=== PATIENT | male | born 1940 | race Caucasian/White ===

== ENCOUNTER 2016-09-29 20:09 | Emergency (ER) | payer MEDICARE, OTHER ==
[2016-09-29 20:23] VITALS: RESP 16
--- NOTE | 2016-09-29 21:08 | ED ---
Lower Extremity Injury HPI <Deuce Austin - Last Filed: 09/29/16 22:06> - General Source: patient, RN notes reviewed Mode of arrival: ambulatory Limitations: no limitations <Nafisa Randolph - Last Filed: 09/30/16 10:47> - General Chief Complaint: Extremity Injury, Lower Stated Complaint: [facility] sent/Swollen left leg Time Seen by Provider: 09/29/16 20:30 - History of Present Illness Initial Comments: Patient is a 75-year-old male with chief complaint of left lower calf pain for approximately 2 weeks. Patient reports that over the past day he's noticed increased swelling, heat and redness over the lower calf. Patient reports he's had no history of blood clots. He was sent to the via urgent care to rule out a blood clot. He reports that he has a past medical history of coronary artery disease and had a stent placed 8 years ago. He denies any other symptoms including chest pain or shortness of breath. He reports that he just feels a deep ache over the left calf. He reports it's worse with ambulation. He denies any other associated symptoms. Patient is a nonsmoker and has no history of cancer. Patient reports that over the past few days he has been sitting frequently as he took a sleeping pill to help him relax. (Nafisa Randolph) - Related Data Previous Rx's Medication Instructions Recorded Enoxaparin [Lovenox] 40 mg SQ DAILY #7 syringe 09/29/16 Allergies Allergy/AdvReac Type Severity Reaction Status Date / Time No Known Allergies Allergy Verified 09/29/16 20:23 Review of Systems ROS Other: All systems not noted in ROS Statement are negative. <Deuce Austin - Last Filed: 09/29/16 22:06> ROS Other: All systems not noted in ROS Statement are negative. <Nafisa Randolph - Last Filed: 09/30/16 10:47> ROS Statement: Those systems with pertinent positive or pertinent negative responses have been documented in the HPI. Past Medical History Past Medical History: Coronary Artery Disease (CAD), Diabetes Mellitus, Hyperlipidemia, Hypertension, Myocardial Infarction (CA) History of Any Multi-Drug Resistant Organisms: None Reported Past Surgical History: Heart Catheterization With Stent, Joint Replacement, Orthopedic Surgery Additional Past Surgical History / Comment(s): multiple bilateral knee surgeries Past Psychological History: No Psychological Hx Reported Smoking Status: Former smoker Past Alcohol Use History: None Reported Past Drug Use History: None Reported <Nafisa Randolph - Last Filed: 09/30/16 10:47> General Exam <Deuce Austin - Last Filed: 09/29/16 22:06> Limitations: no limitations General appearance: alert, in no apparent distress Head exam: Present: atraumatic, normocephalic, normal inspection Eye exam: Present: normal appearance, PERRL, EOMI. Absent: scleral icterus, conjunctival injection, periorbital swelling ENT exam: Present: normal exam, normal oropharynx, mucous membranes moist Neck exam: Present: normal inspection. Absent: tenderness, meningismus, lymphadenopathy Respiratory exam: Present: normal lung sounds bilaterally. Absent: respiratory distress, wheezes, rales, rhonchi, stridor Cardiovascular Exam: Present: regular rate, normal rhythm, normal heart sounds. Absent: systolic murmur, diastolic murmur, rubs, gallop, clicks GI/Abdominal exam: Present: soft, normal bowel sounds. Absent: distended, tenderness, guarding, rebound, rigid Extremities exam: Present: normal inspection, full ROM, normal capillary refill. Absent: tenderness, pedal edema, joint swelling, calf tenderness Left Upper Leg exam: Present: normal inspection, full ROM Knee exam: Present: normal inspection, full ROM. Absent: tenderness, swelling, abrasion Lower Leg exam: Present: full ROM, tenderness, swelling, erythema, Homans' sign. Absent: normal inspection, abrasion, laceration, ecchymosis, deformity, crepitus, dislocation Ankle exam: Present: normal inspection, full ROM. Absent: tenderness, swelling , abrasion, laceration, ecchymosis, deformity Foot/Toe exam: Present: normal inspection, full ROM Neurovascular tendon exam: Present: no vascular compromise Back exam: Present: normal inspection, full ROM Neurological exam: Present: alert, oriented X3, CN II-XII intact Psychiatric exam: Present: normal affect, normal mood Skin exam: Present: warm, dry, intact, normal color. Absent: rash <Nafisa Randolph - Last Filed: 09/30/16 10:47> - General Exam Comments Initial Comments: Patient is a pleasant 75-year-old male. He does not appear to be in any acute distress. (Nafisa Randolph) Course <Deuce Austin - Last Filed: 09/29/16 22:06> <Nafisa Randolph - Last Filed: 09/30/16 10:47> Vital Signs 09/29/16 09/29/16 20:19 22:31 Temperature 98.2 F 97.8 F Pulse Rate 59 L 78 Respiratory 16 16 Rate Blood Pressure 134/73 134/78 O2 Sat by Pulse 96 98 Oximetry - Reevaluation(s) Reevaluation #1: 09/29/16 22:06 I did personally do a [id number] examination the patient is left leg was evaluated he does have some mild Discomfort no palpable cords he does also demonstrate evidence of sciatica on the left. Right signs unremarkable. Pulses are equal bilaterally chest wall is nontender to palpation heart rate regular. Patient is a candidate for outpatient treatment and will be treated with Lovenox and I'll request. He is a follow-up with his doctor in 2 days. He was cautioned about returning should he develop any abnormal symptoms such as chest pain shortness of breath or any other questions. (Deuce Austin) Medical Decision Making - Lab Data Result diagrams: 09/29/16 21:24 09/29/16 21:24 <Deuce Austin - Last Filed: 09/29/16 22:06> - Lab Data Result diagrams: 09/29/16 21:24 09/29/16 21:24 - Radiology Data Radiology results: report reviewed <Nafisa Randolph - Last Filed: 09/30/16 10:47> - Medical Decision Making Patient is a 75 year old male with left calf pain for 2 days. Patient is postvie for DVT, discussed with Dr. Austin. Patient placed on lovenox and following up with PCP in 2 days. Patient also given Eliquis card. PAtient given initial lovenox in the [facility]. Patient understands treatment plan and return parameters of chest pain or shortness of breath. Patient understands treatment plan and will comply. Follow up appointment on Saturday. (Nafisa Randolph) - Lab Data Lab Results 09/29/16 09/29/16 09/29/16 Range/Units 21:24 21:24 21:24 WBC 6.0 (3.8-10.6) k/uL RBC 4.33 (4.30-5.90) m/uL Hgb 14.4 (13.0-17.5) gm/dL Hct 43.1 (39.0-53.0) % MCV 99.6 (80.0-100.0) fL MCH 33.3 (25.0-35.0) pg MCHC 33.4 (31.0-37.0) g/dL RDW 12.8 (11.5-15.5) % Plt Count 108 L (150-450) k/uL Neutrophils % 71 % Lymphocytes % 17 % Monocytes % 8 % Eosinophils % 1 % Basophils % 0 % Neutrophils # 4.2 (1.3-7.7) k/uL Lymphocytes # 1.0 (1.0-4.8) k/uL Monocytes # 0.5 (0-1.0) k/uL Eosinophils # 0.1 (0-0.7) k/uL Basophils # 0.0 (0-0.2) k/uL PT 10.1 (9.0-12.0) sec INR 1.0 (<1.1) APTT 24.1 (22.0-30.0) sec Sodium 142 (137-145) mmol/L Potassium 4.4 (3.5-5.1) mmol/L Chloride 102 (98-107) mmol/L Carbon Dioxide 30 (22-30) mmol/L Anion Gap 10 mmol/L BUN 12 (9-20) mg/dL Creatinine 0.90 (0.66-1.25) mg/dL Est GFR (MDRD) Af Amer >60 (>60 ml/min/1.73 sqM) Est GFR (MDRD) Non-Af >60 (>60 ml/min/1.73 sqM) Glucose 154 H (74-99) mg/dL Calcium 9.2 (8.4-10.2) mg/dL - Radiology Data positve for dvt starting at CFV and through entire vein into proximal calf veins. Vein does have small flow in CGV and FV. not compressible from cvy to calf veins. (Nafisa Randolph) Disposition <Deuce Austin - Last Filed: 09/29/16 22:06> Time of Disposition: 22:24 <Nafisa Randolph - Last Filed: 09/30/16 10:47> Clinical Impression: Left leg DVT Disposition: HOME SELF-CARE Condition: Good Instructions: Deep Venous Thrombosis (ED) Additional Instructions: instructed to follow-up with primary care provider on Saturday. Return to the [facility] if any alarming signs or symptoms occur. Prescriptions: Enoxaparin [Lovenox] 40 mg SQ DAILY #7 syringe Referrals: Jarett Oakley DO [Primary Care Provider] - 1-2 days
[2016-09-29 21:35] LABS: Basophils % (A) 0 %; CH 34.4; CHCM 34.7; Eosinophils # (A) 0.1 k/uL (0-0.7); Eosinophils % (A) 1 %; HCT 43.1 % (39.0-53.0); HDW 2.64; HGB 14.4 gm/dL (13.0-17.5); Luc # (Auto) 0.15; Luc % (Auto) 3; Lymphocytes % (A) 17 %; MCH 33.3 pg (25.0-35.0); MCHC 33.4 g/dL (31.0-37.0); MCV 99.6 fL (80.0-100.0); Mean Platelet Volume 7.4; Monocytes # (A) 0.5 k/uL (0-1.0); Monocytes % (A) 8 %; Neutrophils # (A) 4.2 k/uL (1.3-7.7); Neutrophils % (A) 71 %; RBC 4.33 m/uL (4.30-5.90); RDW 12.8 % (11.5-15.5); WBC (Perox) 6.11
[2016-09-29 21:45] LABS: Anion Gap 10 mmol/L; Blood Urea Nitrogen 12 mg/dL (9-20); Calcium 9.2 mg/dL (8.4-10.2); Carbon Dioxide 30 mmol/L (22-30); Chloride 102 mmol/L (98-107); Glucose 154 mg/dL (74-99); Non-African American GFR(MDRD) >60 (>60 ml/min/1.73 sqM); Potassium 4.4 mmol/L (3.5-5.1); Sodium 142 mmol/L (137-145)
[2016-09-29 21:49] LABS: Partial Thromboplastin Time 24.1 sec (22.0-30.0); Prothrombin Time 10.1 sec (9.0-12.0)
[2016-09-29] MEDS ORDERED: ENOXAPARIN 40 MG/0.4 ML SYRINGE SQ STA (22:01)
[2016-09-29 22:32] VITALS: BP 134/78; PULSE 78; TEMP 97.8
--- NOTE | 2016-09-29 22:32 | US ---
EXAMINATION TYPE: US venous doppler duplex LE LT DATE OF EXAM: 09/29/2016 9:07 PM COMPARISON: NONE CLINICAL HISTORY: Pain. SIDE PERFORMED: VESSELS IMAGED: External Iliac Vein (EIV) Common Femoral Vein Deep Femoral Vein Greater Saphenous Vein * Femoral Vein Popliteal Vein Small Saphenous Vein * Proximal Calf Veins (* superficial vessels) TECHNOLOGIST IMPRESSION: Left Leg: POSITIVE for DVT left leg, starting in the CFV and extending through the entire vein into the proximal calf veins. The vein does have a small amount of flow in the CFV, and FV, the vein is no t compressible from the CFV through the proximal calf veins. IMPRESSION: 1. Findings are compatible with acute deep venous thrombosis involving right lower extremity deep vei ns including common femoral superficial femoral and popliteal and calf veins with small focal areas o f blood flow with segmental non thrombotic areas..
== END 2016-09-29 22:31 | disposition home or self-care (01) ==
LOC: EC 20:09
DX: I82.4Z2 Acute embolism and thrombosis of unspecified deep veins of left distal lower extremity (principal); I25.10 Atherosclerotic heart disease of native coronary artery without angina pectoris; Z95.5 Presence of coronary angioplasty implant and graft; Z87.891 Personal history of nicotine dependence
CPT/HCPCS: 36415; 80048; 85025; 85610; 85730; 93971; 99284; 96372; J1650

== ENCOUNTER → 2016-12-28 | Outpatient (CLI) | payer MEDICARE, OTHER ==
--- NOTE | 2016-12-28 13:18 | US ---
EXAMINATION TYPE: US venous doppler duplex LE LT DATE OF EXAM: 12/28/2016 12:59 PM COMPARISON: Previous study dated 09/29/2016. CLINICAL HISTORY: I82.492 DVT. Patient has been on Xarelto for 3 months, assess if he can go off of t hinners. SIDE PERFORMED: Left TECHNIQUE: The lower extremity deep venous system is examined utilizing real time linear array sonog jeancarlos with graded compression, doppler sonography and color-flow sonography. VESSELS IMAGED: External Iliac Vein (EIV) Common Femoral Vein Deep Femoral Vein Greater Saphenous Vein * Femoral Vein Popliteal Vein Small Saphenous Vein * Proximal Calf Veins (* superficial vessels) Left Leg: Thrombus seen with indeterminate age, more so within popiteal vein No popliteal fossa lesion is seen. IMPRESSION: 1. NO ACUTE OCCLUSIVE THROMBUS AT THIS TIME. 2. EVIDENCE OF OLD THROMBUS, LIKELY FROM THE PATIENT'S PREVIOUS DVT IN SEPTEMBER.
== END | disposition home or self-care (01) ==
LOC: RADUSWWP 12:21
PROVIDERS: ATTEND Family Medicine
DX: I82.402 Acute embolism and thrombosis of unspecified deep veins of left lower extremity (principal)

== ENCOUNTER → 2017-05-24 | Outpatient (CLI) | payer MEDICARE, OTHER ==
--- NOTE | 2017-05-24 14:47 | US ---
EXAMINATION TYPE: US venous doppler duplex LE LT DATE OF EXAM: 05/24/2017 2:19 PM COMPARISON: 12/28/2016 CLINICAL HISTORY: I89.492 DVT. On thinners and need to assess known DVT in left leg to stop thinners SIDE PERFORMED: Left TECHNIQUE: The lower extremity deep venous system is examined utilizing real time linear array sonog jeancarlos with graded compression, doppler sonography and color-flow sonography. VESSELS IMAGED: External Iliac Vein (EIV) Common Femoral Vein Deep Femoral Vein Greater Saphenous Vein * Femoral Vein Popliteal Vein Small Saphenous Vein * Proximal Calf Veins (* superficial vessels) Left Leg: Appears to have non occluding chronic thrombus within left popiteal and femoral vein, flow seen, echogenic debris seen within vein that correlates to chronic process Grayscale, color doppler, spectral doppler imaging performed of the deep veins of the lower extremiti es. There is normal flow, compressibility, vascular waveforms. IMPRESSION: Nonoccluding thrombus within the left popliteal and femoral vein, eccentrically located compatible with nonresolved chronic thrombosis.
== END | disposition home or self-care (01) ==
LOC: RADUSWWP 13:52
PROVIDERS: ATTEND Family Medicine
DX: I82.432 Acute embolism and thrombosis of left popliteal vein (principal)

== ENCOUNTER 2017-09-04 06:33 | Inpatient (IN) | payer MEDICARE, OTHER ==
[~2017-09-04 06:33] MED LIST: ALPRAZolam 0.25 MG TAB PO PRN; ALPRAZolam 0.5 MG TAB PO PRN; ASPIRIN 325 MG TAB PO STA; ATORVASTATIN 80 MG TAB PO STA; NITROGLYCERIN SL TABS 0.4 MG TAB SUBLINGUAL PRN; SODIUM CHLORIDE 0.9% 1,000 ML in EMPTY BAG 1 BAG IV ONE
[2017-09-04] MEDS ORDERED: ASPIRIN 81 MG ONE ×2 (07:00→07:02)
[2017-09-04 07:20] LABS: Glucose,Whole Blood 132 mg/dL (75-99)
[2017-09-04] MEDS ORDERED: fentaNYL (PF) 50 MCG/ML 2 ML AMP IV ONE (07:40)
[2017-09-04] MEDS: LIDOCAINE 2% INJ 20 MG/ML SQ ONE ×2 (07:44→07:55)
[2017-09-04] MEDS ORDERED: VERAPAMIL SYRINGE (5 MG/10 ML) INTRAARTER ONE (07:47)
[2017-09-04] MEDS ORDERED: IOHEXOL 350 MG/ML 125ML BOTTLE INJ ONE (08:11)
[2017-09-04] MEDS ORDERED: RX INFO: IV CONTRAST WAS GIVEN 1 EACH MISC MISCELLANE PRN (08:26)
[2017-09-04] MEDS ORDERED: SODIUM CHLORIDE 0.9% 1,000 ML IV SCH (08:30)
[2017-09-04] MEDS ORDERED: METOPROLOL SUCCINATE (ER) 50 MG TAB.ER.24H PO SCH (09:00)
[2017-09-04] MEDS ORDERED: ADENOSINE 3 MG/ML 2 ML VIAL IVP ONE (09:33)
[2017-09-04] MEDS ORDERED: ATROPINE SULFATE 0.1 MG/ML 10ML SYRINGE ONE (10:12)
--- NOTE | 2017-09-04 10:45 | CC ---
CARDIAC CATHETERIZATION REPORT Mr. Caceres is a 76-year-old male with known history of hypertension, hyperlipidemia, diabetes mellitus, history of coronary artery disease, who presented with symptoms of exertional chest discomfort, relieved with rest. In view of that, recommendation made regarding cardiac catheterization, the procedures risks and complication were discussed with the patient who is in full understanding and agreement. PROCEDURE: Patient was brought to [facility] in a fasting semi-sedated state after receiving fentanyl and Benadryl. He was draped and prepped in conventional fashion using Xylocaine anesthesia and Seldinger technique, a 6-Chilean sheath was introduced in the right radial artery. There was difficulty advancing the catheter because of his severe loop in the right subclavian. At that point, using Xylocaine anesthesia and Seldinger technique, a 6-Chilean sheath was introduced in the right femoral artery. Selective right and left angiography performed using 6-Chilean, 4 bend right and left Edilma catheter. Multiple views of the coronary artery including hemiaxial views obtained. Following that, 6-Chilean tight pigtail catheter was introduced in the left ventricle and a 30 degree BRODERICK view of the left ventricle was obtained. Following that, the catheter and sheath were removed. Hemostasis was obtained with deployment of a TR band on the right radial artery. The left femoral artery was sutured in place to be removed at a later time. Of note, the patient received 5000 units of intravenous heparin as well as intra-arterial verapamil. FINDINGS: 1. FLUOROSCOPY: There was severe calcification involving the left main and the proximal LAD. 2. LEFT MAIN: This is a large-sized vessel bifurcating into left circumflex, left anterior descending artery. Left main coronary artery distally at the bifurcation has a severely calcified lesion with area of stenosis up to 60% to 70%. The rest of the proximal vessel has no high-grade stenosis. 3. LEFT ANTERIOR DESCENDING ARTERY: This is a large-sized vessel reaching toward the apex with a wraparound apex segment. It appears there is a segment in the mid area. The LAD gives rise to a moderately-sized diagonal branch at the takeoff of the diagonal branch. There is an 80% plaque. The rest of the vessel has no high- grade stenosis. 4. LEFT CIRCUMFLEX: This is a large dominant vessel, bifurcating distally into PDA and posterolateral segment and branches giving rise to a large obtuse marginal branch in mid segment. Prior to the take off of the obtuse marginal branch, there is a 60% to 70% lesion at a tortuous segment. The obtuse marginal branch has an independent lesion in the mid of it of about 70%. The rest of the vessel has no high-grade stenosis. 5. RIGHT CORONARY ARTERY: This is a small nondominant vessel that has no evidence of high-grade stenosis. 6. LEFT VENTRICULOGRAM: Left ventriculogram is performed in 30 degree BRODERICK view and revealed normal size, systolic function, ejection fraction 55%. There was no significant mitral regurgitation. 7. HEMODYNAMICS: There was no gradient across the aortic valve. The left ventricular end-diastolic pressure was 12 mmHg. CONCLUSION: 1. Heavily calcified coronary artery. 2. Significant distal left main disease. 3. Significant disease involving the mid left anterior descending artery and moderate significant disease in the left circumflex. 4. Normal left ventricular size and systolic function. RECOMMENDATION: 1. In view of finding anatomy, recommend proceeding with coronary artery bypass grafting, in view of the left main disease and the diabetes. Those findings and recommendation were discussed with the patient and his family who is in full understanding and agreement. 2. Duration of procedure is 28 minutes. MMODL / IJN: [id number] /
[2017-09-04] MEDS ORDERED: MD COMMUNICATION TO PHARMACY 1 EACH MISC PO ONE ×4 (10:46)
--- NOTE | 2017-09-04 10:51 | LTR ---
DATE OF SERVICE: 09/04/2017 RE: Deven Caceres Dear Dr. Oakley: I had the pleasure to perform cardiac catheterization on Mr. Caceres at [facility] on September 04, 2017 and a full copy of the procedure note will be forwarded to you. In brief, he was found to have significant distal left main disease in a heavily calcified area as well as significant mid LAD lesion and in view of that, I have recommend proceeding with evaluation for coronary artery bypass grafting. I will keep you updated on his progress and thank you again for allowing me to participate in this patient's care. Please feel free to call for any questions. Sincerely yours, MD KENDALL Lucia / JULIETTE: [id number] /
--- NOTE | 2017-09-04 11:35 | P.GSCN ---
<Rita Lee - Last Filed: 09/04/17 11:07> History of Present Illness Consult date: 09/04/17 Reason for Consult: Coronary artery disease with left main disease, surgical recommendations. Requesting physician: Baljinder Joe History of present illness: This 76-year-old gentleman who follows on an outpatient basis with Dr. Jarett Oakley and who has a previous medical history of coronary artery disease, myocardial infarction with stent placement in 2001, hypertension, diabetes mellitus type 2, hyperlipidemia, DVT of the left lower extremity in September 2016 currently on a Xarelto with the last dose on Saturday, previous tobacco dependence, family history of premature coronary artery disease with his father from a myocardial infarction at 49 years old, and multiple orthopedic surgeries presented to [facility] with complaints of intermittent substernal chest pain increased with activity, relieved with rest, associated with shortness of breath. He denied orthopnea, paroxysmal nocturnal dyspnea, palpitations, syncope, stroke-like symptoms. He does state that he has occasional lower extremity edema associated with pain in his legs. Dr. Joe performed a left heart catheterization on the patient this morning which demonstrated left main disease with a 60-70% severely calcified lesion at the bifurcation, 80% stenosis of the mid LAD, and a 60-70% lesion in the left circumflex artery with 70% lesion in the obtuse marginal branch. LV gram was performed which demonstrated normal systolic function with an ejection fraction of 50%, no mitral regurgitation, and no gradient across the aortic valve. Transthoracic echocardiogram obtained from Dr. Joe's office demonstrated normal LV function with an ejection fraction 60%, no diastolic dysfunction, mild mitral regurgitation, and mild tricuspid regurgitation. Dr. Chaudhary from cardiothoracic surgery was consulted regarding surgical revascularization. Review of Systems 14 point review of systems was completed and was negative except as noted. - Cardiovascular Reports as per HPI, Reports chest pain, Reports dyspnea on exertion, Reports edema, Reports high blood pressure, Reports leg edema, Reports shortness of breath - Respiratory Reports as per HPI, Reports dyspnea, Reports snoring - Musculoskeletal Reports low back pain - Psychiatric Reports depression Past Medical History Past Medical History: Coronary Artery Disease (CAD), Diabetes Mellitus, Deep Vein Thrombosis (DVT), Hyperlipidemia, Hypertension, Myocardial Infarction ([place]) , Osteoarthritis (OA), Prostate Disorder Additional Past Medical History / Comment(s): COLITIS, DVT LEFT LEG , Last Myocardial Infarction Date:: 2001 History of Any Multi-Drug Resistant Organisms: None Reported Past Surgical History: Appendectomy, Heart Catheterization With Stent, Joint Replacement, Orthopedic Surgery Additional Past Surgical History / Comment(s): multiple bilateral knee- ARTHROSCOPIC, RIGHT AND LEFT TOTAL KNEE REPLACEMENT, NECK SURGERY Past Anesthesia/Blood Transfusion Reactions: No Reported Reaction Date of Last Stent Placement:: 2001 Smoking Status: Former smoker Past Alcohol Use History: Rare Past Drug Use History: None Reported - Past Family History Mother Family Medical History: No Reported History Father Family Medical History: Myocardial Infarction ([place]) Additional Family Medical History / Comment(s): Father of a myocardial infarction at 49 years old Medications and Allergies Home Medications Medication Instructions Recorded Confirmed Type Celecoxib [CeleBREX] 200 mg PO DAILY 08/30/17 09/04/17 History Doxazosin [Cardura] 4 mg PO BID 08/30/17 09/04/17 History Isosorbide Mononitrate [Isosorbide 30 mg PO DAILY 08/30/17 09/04/17 History Mononitrate ER] Metoprolol Succinate [Toprol XL] 50 mg PO DAILY 08/30/17 09/04/17 History Rivaroxaban [Xarelto] 20 mg PO DAILY 08/30/17 09/04/17 History Simvastatin [Zocor] 40 mg PO DAILY 08/30/17 09/04/17 History metFORMIN HCL [Glucophage] 500 mg PO BID 08/30/17 09/04/17 History sulfaSALAzine [Azulfidine] 500 mg PO BID 08/30/17 09/04/17 History ALPRAZolam [Xanax] 1 mg PO HS 09/04/17 09/04/17 History Allergies Allergy/AdvReac Type Severity Reaction Status Date / Time No Known Allergies Allergy Verified 09/04/17 09:51 Surgical - Exam Vital Signs Temp Pulse Resp BP Pulse Ox 97.6 F 52 L 16 151/65 96 09/04/17 07:16 09/04/17 07:16 09/04/17 07:16 09/04/17 07:16 09/04/17 07:16 - General well developed, well nourished, no distress, no pain, obese - Eyes PERRL, normal ocular movement - ENT decreased hearing - Neck no masses, no bruits, trachea midline - Respiratory Lungs sounds diminished bilaterally. Respirations even, nonlabored. Currently on room air with oxygen saturation 94%. - Cardiovascular S1, S2 present. Regular rate and rhythm, sinus bradycardia on telemetry. Palpable peripheral pulses bilaterally. No edema present. Positive varicosities in bilateral lower extremities. Right radial heart catheterization site TBand present. Right femoral arterial sheath recently pulled, manual pressure being held. - Abdomen Abdomen: soft, non tender, bowel sounds - Genitourinary Deferred - Rectum Deferred - Integumentary no rash, no growths - Neurologic normal coordination, normal sensation - Psychiatric oriented to time, oriented to person, oriented to place, speech is normal, memory intact Results - Labs Abnormal Lab Results - Last 24 Hours (Table) 09/04/17 Range/Units 07:11 POC Glucose (mg/dL) 132 H (75-99) mg/dL - Imaging EKG: image reviewed Additional studies: Transthoracic echocardiogram report reviewed, catheterization films reviewed. Assessment and Plan (1) Coronary artery disease Current Visit: Yes Status: Chronic Code(s): I25.10 - ATHSCL HEART DISEASE OF [place] CORONARY ARTERY W/O ANG PCTRS SNOMED Code(s): 79638077 (2) Hypertension Current Visit: Yes Status: Chronic Code(s): I10 - ESSENTIAL (PRIMARY) HYPERTENSION SNOMED Code(s): 49325709 (3) Diabetes mellitus type 2 in obese Current Visit: Yes Status: Chronic Code(s): E11.69 - TYPE 2 DIABETES MELLITUS WITH OTHER SPECIFIED COMPLICATION; E66.9 - OBESITY, UNSPECIFIED SNOMED Code(s): 73902572 (4) Family history of premature coronary artery disease Current Visit: Yes Status: Chronic Code(s): Z82.49 - FAMILY HX OF ISCHEM HEART DIS AND OTH DIS OF THE CIRC SYS SNOMED Code(s): 347121268 (5) Previous myocardial infarction older than 8 weeks Current Visit: No Status: Resolved Code(s): I25.2 - OLD MYOCARDIAL INFARCTION SNOMED Code(s): 8622697 (6) History of heart artery stent Current Visit: No Status: Resolved Code(s): Z95.5 - PRESENCE OF CORONARY ANGIOPLASTY IMPLANT AND GRAFT SNOMED Code(s): 052960542 (7) Hyperlipidemia Current Visit: Yes Status: Chronic Code(s): E78.5 - HYPERLIPIDEMIA, UNSPECIFIED SNOMED Code(s): 18344393 (8) History of DVT (deep vein thrombosis) Current Visit: No Status: Resolved Code(s): Z86.718 - PERSONAL HISTORY OF OTHER VENOUS THROMBOSIS AND EMBOLISM SNOMED Code(s): 258162857 (9) Arthritis Current Visit: Yes Status: Chronic Code(s): M19.90 - UNSPECIFIED OSTEOARTHRITIS, UNSPECIFIED SITE SNOMED Code(s): 2674441 (10) Tobacco dependence in remission Current Visit: No Status: Resolved Code(s): F17.201 - NICOTINE DEPENDENCE, UNSPECIFIED, IN REMISSION SNOMED Code(s): 424522145 (11) Obesity (BMI 30-39.9) Current Visit: Yes Status: Chronic Code(s): E66.9 - OBESITY, UNSPECIFIED SNOMED Code(s): 962293162 (12) Left main coronary artery disease Current Visit: Yes Status: Chronic Code(s): I25.10 - ATHSCL HEART DISEASE OF [place] CORONARY ARTERY W/O ANG PCTRS SNOMED Code(s): 786629736 Plan: The patient was seen and examined at the bedside. Chart/diagnostics reviewed. The case was discussed between Dr. Joe and Dr. Chaudhary. Preoperative testing was ordered. Preoperative teaching was initiated with the patient and his . Risks and benefits were discussed and all questions were answered. At this time we recommend continuing aspirin, statin, beta tony. Continue to hold Xarelto. Plan is for coronary artery bypass graft surgery in the next 24- 48 hours pending results of preoperative testing. Thank you Dr. Joe for this consult. We look forward to working with you in the care of your patient. Time with Patient: Greater than 30 <Murali Chaudhary - Last Filed: 09/04/17 17:16> Surgical - Exam Vital Signs Temp Pulse Resp BP Pulse Ox 97.6 F 52 L 16 151/65 96 09/04/17 07:16 09/04/17 07:16 09/04/17 07:16 09/04/17 07:16 09/04/17 07:16 Results - Labs 09/04/17 11:43 09/04/17 11:43 Abnormal Lab Results - Last 24 Hours (Table) 09/04/17 09/04/17 09/04/17 Range/Units 07:11 11:43 11:43 RBC 3.85 L (4.30-5.90) m/uL Hgb 12.8 L (13.0-17.5) gm/dL Hct 38.7 L (39.0-53.0) % MCV 100.6 H (80.0-100.0) fL Plt Count 131 L (150-450) k/uL Glucose 135 H (74-99) mg/dL POC Glucose (mg/dL) 132 H (75-99) mg/dL Alkaline Phosphatase 33 L (38-126) U/L Total Protein 5.5 L (6.3-8.2) g/dL HDL Cholesterol 30 L (40-60) mg/dL Crossmatch 09/04/17 Range/Units 11:43 RBC (4.30-5.90) m/uL Hgb (13.0-17.5) gm/dL Hct (39.0-53.0) % MCV (80.0-100.0) fL Plt Count (150-450) k/uL Glucose (74-99) mg/dL POC Glucose (mg/dL) (75-99) mg/dL Alkaline Phosphatase (38-126) U/L Total Protein (6.3-8.2) g/dL HDL Cholesterol (40-60) mg/dL Crossmatch See Detail Diabetes panel 09/04/17 Range/Units 11:43 Sodium 140 (137-145) mmol/L Potassium 4.1 (3.5-5.1) mmol/L Chloride 104 (98-107) mmol/L Carbon Dioxide 29 (22-30) mmol/L BUN 19 (9-20) mg/dL Creatinine 1.00 (0.66-1.25) mg/dL Glucose 135 H (74-99) mg/dL Calcium 8.7 (8.4-10.2) mg/dL AST 27 (17-59) U/L ALT 50 (21-72) U/L Alkaline Phosphatase 33 L (38-126) U/L Total Protein 5.5 L (6.3-8.2) g/dL Albumin 3.5 (3.5-5.0) g/dL Triglycerides 113 (<150) mg/dL HDL Cholesterol 30 L (40-60) mg/dL Thyroid panel 09/04/17 Range/Units 11:43 TSH 2.050 (0.465-4.680) mIU/L Calcium panel 09/04/17 Range/Units 11:43 Calcium 8.7 (8.4-10.2) mg/dL Albumin 3.5 (3.5-5.0) g/dL Pituitary panel 09/04/17 Range/Units 11:43 Sodium 140 (137-145) mmol/L Potassium 4.1 (3.5-5.1) mmol/L Chloride 104 (98-107) mmol/L Carbon Dioxide 29 (22-30) mmol/L BUN 19 (9-20) mg/dL Creatinine 1.00 (0.66-1.25) mg/dL Glucose 135 H (74-99) mg/dL Calcium 8.7 (8.4-10.2) mg/dL TSH 2.050 (0.465-4.680) mIU/L Adrenal panel 09/04/17 Range/Units 11:43 Sodium 140 (137-145) mmol/L Potassium 4.1 (3.5-5.1) mmol/L Chloride 104 (98-107) mmol/L Carbon Dioxide 29 (22-30) mmol/L BUN 19 (9-20) mg/dL Creatinine 1.00 (0.66-1.25) mg/dL Glucose 135 H (74-99) mg/dL Calcium 8.7 (8.4-10.2) mg/dL Total Bilirubin 0.8 (0.2-1.3) mg/dL AST 27 (17-59) U/L ALT 50 (21-72) U/L Alkaline Phosphatase 33 L (38-126) U/L Total Protein 5.5 L (6.3-8.2) g/dL Albumin 3.5 (3.5-5.0) g/dL Assessment and Plan Plan: The patient was seen and examined. I agree with the above assessment and plan. The patient is a 76-year-old male who presented for cardiac catheterization today secondary to chest pain. He was found to have multivessel coronary artery disease including distal left main stenosis. A coronary artery bypass is recommended. The risks, benefits, and alternatives to this procedure were discussed with the patient and his . All their questions were answered. He is currently resting comfortably in bed and denies chest pain. We will plan on performing his procedure tomorrow morning.
--- NOTE | 2017-09-04 12:18 | P.CNPUL ---
History of Present Illness Consult date: 09/04/17 Requesting physician: Murali Chaudhary Reason for consult: other (Ventilator and critical care management) Chief complaint: Exertional chest discomfort History of present illness: This is a very pleasant 76-year-old gentleman who follows with Dr. Jarett Oakley as his primary care physician. He has a history of diabetes mellitus, hyperlipidemia, hypertension, colitis, BPH, osteoarthritis with multiple surgeries including bilateral knee replacements. He also states his right hip is needing to be replaced. He was here in September 2016 with a left leg DVT and he remains on Xarelto. He has a remote history of chronic tobacco dependence for approximately 30 years. He did however quit in 1997. Denies having any pulmonary symptoms. He's never been on inhalers or oxygen the outpatient setting. He had not been seen by a water taxi captain in the past. He does have a history of coronary artery disease with previous myocardial infarction and stent placement in 2001. Since that time he had been doing quite well from the cardiac standpoint. Recently he had noticed some chest discomfort while shoveling snow and was seen by Dr. Oakley and subsequently with cardiology and was brought in for an outpatient cardiac catheterization today. Xarelto was stopped on 09/01/2017. He was found to have heavily calcified coronary arteries. He had significant 60-70% distal left main disease, significant 80% mid LAD disease and moderate 60-70% disease in the left circumflex. The plan is for coronary artery bypass grafting within the next 24- 48 hours. He is seen today in consultation on the selective care unit. He is resting flat in bed. He is awake and alert in no acute distress. He denies any shortness of breath, cough or congestion. No chest discomfort currently stating he has not had any since starting isosorbide mononitrate. He remains hemodynamically stable. Maintaining good O2 saturations in the mid to upper 90s on room air. Review of Systems 14 point review of system was conducted. All negative other than as mentioned in HPI. Past Medical History Past Medical History: Coronary Artery Disease (CAD), Diabetes Mellitus, Deep Vein Thrombosis (DVT), Hyperlipidemia, Hypertension, Myocardial Infarction ([place]) , Osteoarthritis (OA), Prostate Disorder Additional Past Medical History / Comment(s): Colitis, left lower extremity DVT chronic in nature. Remains on Xarelto. Last Myocardial Infarction Date:: 2001 History of Any Multi-Drug Resistant Organisms: None Reported Past Surgical History: Appendectomy, Heart Catheterization With Stent, Joint Replacement, Orthopedic Surgery Additional Past Surgical History / Comment(s): Bilateral knee replacements. Cervical spine surgery. Past Anesthesia/Blood Transfusion Reactions: No Reported Reaction Date of Last Stent Placement:: 2001 Smoking Status: Former smoker Past Alcohol Use History: Rare Past Drug Use History: None Reported - Past Family History Mother Family Medical History: No Reported History Father Family Medical History: Myocardial Infarction ([place]) Additional Family Medical History / Comment(s): Father of a myocardial infarction at 49 years old Medications and Allergies Home Medications Medication Instructions Recorded Confirmed Type Celecoxib [CeleBREX] 200 mg PO DAILY 08/30/17 09/04/17 History Doxazosin [Cardura] 4 mg PO BID 08/30/17 09/04/17 History Isosorbide Mononitrate [Isosorbide 30 mg PO DAILY 08/30/17 09/04/17 History Mononitrate ER] Metoprolol Succinate [Toprol XL] 50 mg PO DAILY 08/30/17 09/04/17 History Rivaroxaban [Xarelto] 20 mg PO DAILY 08/30/17 09/04/17 History Simvastatin [Zocor] 40 mg PO DAILY 08/30/17 09/04/17 History metFORMIN HCL [Glucophage] 500 mg PO BID 08/30/17 09/04/17 History sulfaSALAzine [Azulfidine] 500 mg PO BID 08/30/17 09/04/17 History ALPRAZolam [Xanax] 1 mg PO HS 09/04/17 09/04/17 History Allergies Allergy/AdvReac Type Severity Reaction Status Date / Time No Known Allergies Allergy Verified 09/04/17 09:51 Physical Exam Vitals: Vital Signs Temp Pulse Pulse Resp BP BP BP 09/04/17 11:35 49 L 16 96/55 09/04/17 11:20 50 L 16 93/54 09/04/17 11:05 49 L 16 113/62 09/04/17 10:50 50 L 16 113/62 09/04/17 10:44 47 L 18 99/60 09/04/17 10:26 46 L 18 98/60 09/04/17 10:24 48 L 18 107/58 09/04/17 10:21 48 L 18 113/58 09/04/17 10:11 48 L 18 95/52 09/04/17 09:56 46 L 18 96/52 09/04/17 09:15 48 L 16 93/51 09/04/17 09:04 50 L 16 93/51 09/04/17 08:45 48 L 16 102/55 09/04/17 08:30 48 L 16 109/59 09/04/17 07:16 97.6 F 52 L 16 151/65 145/72 BP Pulse Ox 09/04/17 11:35 96 09/04/17 11:20 96 09/04/17 11:05 94 L 09/04/17 10:50 97 09/04/17 10:44 96 09/04/17 10:26 96 09/04/17 10:24 122/54 96 09/04/17 10:21 120/50 96 09/04/17 10:11 106/48 09/04/17 09:56 106/46 96 09/04/17 09:15 112/54 92 L 09/04/17 09:04 113/55 92 L 09/04/17 08:45 118/57 92 L 09/04/17 08:30 121/72 90 L 09/04/17 07:16 96 Intake and Output 09/03/17 09/04/17 09/04/17 22:59 06:59 14:59 Intake Total 300 Balance 300 Intake: IV 300 Sodium Chloride 0.9% 1, 100 000 ml @ 100 mls/hr IV . Q10H [facility] Rx#:[id number] GENERAL EXAM: Alert, comfortable in no apparent distress. HEAD: Normocephalic. EYES: Normal reaction of pupils, equal size. NOSE: Clear with pink turbinates. THROAT: No erythema or exudates. NECK: No masses, no JVD. CHEST: No chest wall deformity. LUNGS: Equal air entry with no crackles, wheeze, rhonchi or dullness. CVS: S1 and S2 normal with no audible murmur, regular rhythm. ABDOMEN: No hepatosplenomegaly, normal bowel sounds, no guarding or rigidity. SPINE: No scoliosis or deformity SKIN: No rashes CENTRAL NERVOUS SYSTEM: No focal deficits, tone is normal in all 4 extremities. EXTREMITIES: There is no peripheral edema. No clubbing, no cyanosis. Peripheral pulses are intact. Results - Laboratory Findings Abnormal lab findings: Abnormal Labs 09/04/17 07:11 POC Glucose (mg/dL) 132 H - Diagnostic Findings Chest x-ray: pending Assessment and Plan Assessment: Impression: #1 Exertional chest pain in a patient found to have significant coronary artery disease. Cardiac catheterization today revealed heavily calcified coronary arteries. He had significant 60-70% distal left main disease, significant 80% mid LAD disease and moderate 60-70% disease in the left circumflex. The plan is for coronary artery bypass grafting within the next 24-48 hours. #2 History of coronary artery disease with previous myocardial infarction and stent placement in 2001. 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 Held since 09/01/2017. #4 Remote history of approximately 30 years at 1 pack per day chronic tobacco dependence, however quit in 1997. #5 Diabetes mellitus, type II. #6 Hypertension. #7 Hyperlipidemia. #8 Benign prostatic hypertrophy. #9 History of colitis. #10 Osteoarthritis with multiple orthopedic surgeries including bilateral knee replacements and cervical spine surgery. Eventually needing a right hip replacement as well. Plan: The patient was seen and evaluated by Dr. Liao. We will await chest x-ray results. We will await bedside spirometer results. The patient has not been seen by a water taxi captain in the past. No pulmonary complaints. Able to do his usual day today activities without any significant shortness of breath. He will be educated regarding the use of the incentive spirometer and cough and deep breathing exercises. He will be on bronchodilators while intubated and on the mechanical ventilator and in the postoperative setting. Plan to utilize the rapid extubation protocol. We will continue to follow and make further recommendations based on his clinical status. I, the cosigning physician, have performed a history and physical examination on the patient. Lung sounds are clear. Maintaining good O2 saturations in the 90s on room air. I have discussed the assessment and plan of care with my nurse practitioner, Alexandra Yun. I attest to the above consultation as dictated by her. Time with Patient: Greater than 30
[2017-09-04 12:24] LABS: ALT 50 U/L (21-72); AST 27 U/L (17-59); Albumin 3.5 g/dL (3.5-5.0); Alkaline Phosphatase 33 U/L (38-126); Anion Gap 7 mmol/L; Blood Urea Nitrogen 19 mg/dL (9-20); Calcium 8.7 mg/dL (8.4-10.2); Carbon Dioxide 29 mmol/L (22-30); Chloride 104 mmol/L (98-107); Cholesterol 114 mg/dL (<200); Glucose 135 mg/dL (74-99); HDL Cholesterol 30 mg/dL (40-60); LDL Cholesterol,Calculated 61 mg/dL (0-99); Magnesium 1.6 mg/dL (1.6-2.3); Potassium 4.1 mmol/L (3.5-5.1); Sodium 140 mmol/L (137-145); Total Bilirubin 0.8 mg/dL (0.2-1.3); Total Protein 5.5 g/dL (6.3-8.2); Triglycerides 113 mg/dL (<150)
[2017-09-04 12:34] LABS: Basophils % (A) 0 %; Eosinophils # (A) 0.1 k/uL (0-0.7); Eosinophils % (A) 2 %; HCT 38.7 % (39.0-53.0); HGB 12.8 gm/dL (13.0-17.5); Lymphocytes # (A) 1.2 k/uL (1.0-4.8); Lymphocytes % (A) 30 %; MCH 33.2 pg (25.0-35.0); MCV 100.6 fL (80.0-100.0); Mean Platelet Volume 7.8; Monocytes # (A) 0.3 k/uL (0-1.0); Monocytes % (A) 7 %; Neutrophils # (A) 2.3 k/uL (1.3-7.7); Neutrophils % (A) 59 %; Platelet Count 131 k/uL (150-450); RBC 3.85 m/uL (4.30-5.90); RDW 13.2 % (11.5-15.5)
[2017-09-04 13:00] LABS: Partial Thromboplastin Time 23.5 sec (22.0-30.0)
[2017-09-04 13:02] LABS: INR 1.1 (<1.2); Prothrombin Time 10.5 sec (9.0-12.0)
[2017-09-04] MEDS: ACETAMINOPHEN TAB 325 MG TAB PO PRN ×2 (14:01→19:59)
--- NOTE | 2017-09-04 15:02 | US ---
EXAMINATION TYPE: US carotid duplex BILAT DATE OF EXAM: 09/04/2017 COMPARISON: NONE CLINICAL HISTORY: PreOp Cardiac Surgery. EXAM MEASUREMENTS: RIGHT: Peak Systolic Velocity (PSV) cm/sec ----- Right CCA: 59.8 ----- Right ICA: 91.8 ----- Right ECA: 74.1 ICA/CCA ratio: 1.5 RIGHT: End Diastole cm/sec ----- Right CCA: 16.2 ----- Right ICA: 27.4 ----- Right ECA: 2.6 LEFT: Peak Systolic Velocity (PSV) cm/sec ----- Left CCA: 60.0 ----- Left ICA: 108.8 ----- Left ECA: 65.5 ICA/CCA ratio: 1.8 LEFT: End Diastole cm/sec ----- Left CCA: 13.4 ----- Left ICA: 41.0 ----- Left ECA: 4.8 VERTEBRALS (direction of flow): Right Vertebral: Antegrade Left Vertebral: Antegrade Rhythm: Arrhythmia No significant velocity elevations Grayscale, color Doppler, spectral Doppler imaging performed of the carotid arteries. Waveform analys is does not show any significant stenosis of the proximal internal carotid arteries bilaterally by Do ppler criteria. IMPRESSION: No hemodynamic significant stenosis of the proximal internal carotid arteries bilaterall y by Doppler criteria, an indirect measurement of carotid stenosis. Technologist reports arrhythmia, correlate. Criteria for Assigning % of Stenosis / Diameter reduction (Estimation based on the indirect measurements of the internal carotid artery velocities (ICA PSV). 1. Normal (no stenosis)=ICA PSV < 125 cm/s: ratio < 2.0: ICA EDV<40 cm/s. 2. Less than 50% stenosis=ICA PSV < 125 cm/s: ratio < 2.0: ICA EDV<40 cm/s. 3. 50 to 69% stenosis=ICA PSV of 125 to 230 cm/s: ration 2.0 ? 4.0: ICA EDV 40-100 cm/s. 4. Greater than 70% stenosis to near occlusion= ICA PSV > 230 cm/s: ratio > 4.0: ICA EDV > 100 cm/s. 5. Near occlusion= ICA PSV velocities may be low or undetectable: variable ratio and ICA EDV. 6. Total occlusion=unable to detect flow.
[2017-09-04 16:21] LABS: Appearance,Urine Clear (Clear); Bilirubin,Urine Negative (Negative); Blood,Urine Negative (Negative); Color,Urine Yellow; Glucose,Urine (UA) Negative (Negative); Ketones,Urine Negative (Negative); Leukocyte Esterase,Urine Negative (Negative); Nitrite,Urine Negative (Negative); PH, Urine 5.5 (5.0-8.0); Protein,Urine Negative (Negative); Urobilinogen,Urine <2.0 mg/dL (<2.0)
[2017-09-04] MEDS: sulfaSALAzine 500 MG TAB PO SCH ×2 (16:59→20:02)
[2017-09-04] MEDS: ISOSORBIDE MONONITRATE ER 30 MG TAB.ER.24H PO SCH (16:59)
[2017-09-04] MEDS: DOXAZOSIN 4 MG TAB PO SCH ×2 (16:59→20:02)
--- NOTE | 2017-09-04 20:32 | XR ---
EXAMINATION: XR chest 2V DATE AND TIME: 09/04/2017 7:59 PM ORDERING PROVIDER: Rita Lee CLINICAL INDICATION: PreOp Cardiac Surgery TECHNIQUE: PA and lateral COMPARISON: None. DESCRIPTION: The cardiac silhouette appears mildly enlarged. The lungs are clear. The pleural spaces are negative. The skeletal structures are intact without focal findings. The soft tissues are prominent, overlying the chest. IMPRESSION: NO ACUTE PROCESS.
[2017-09-04 20:52] LABS: Hepatitis A Antibody IgM Non-Reactive (Non-Reactive); Hepatitis B Core IgM Non-Reactive (Non-Reactive)
[2017-09-04] MEDS: ALPRAZolam 0.5 MG TAB PO SCH (23:19)
[2017-09-04] MEDS: MUPIROCIN 2% OINT 22 GM TUBE NASAL SCH ×2 (23:41)
[2017-09-05] MEDS ORDERED: HEPARIN SODIUM,PORCINE 5,000 UNIT in SODIUM CHLORIDE 0.9% 500 ML IV PRN (05:00)
[2017-09-05] MEDS ORDERED: ASPIRIN 325 MG TAB PO ONE (05:00)
[2017-09-05] MEDS ORDERED: PROTAMINE SULFATE 10 MG/ML 25 ML VIAL IV PRN (05:00)
[2017-09-05] MEDS ORDERED: NITROGLYCERIN-D5W PMX 50 MG in DEXTROSE/WATER 1 250ML.BAG IV PRN (05:00)
[2017-09-05] MEDS ORDERED: ALBUMIN HUMAN 5% 500 ML in EMPTY BAG 1 BAG IVPB PRN ×6 (05:00)
[2017-09-05] MEDS ORDERED: MANNITOL 25% 12.5 GM/50 ML VIAL IV PRN ×2 (05:00)
[2017-09-05] MEDS ORDERED: AMINOCAPROIC ACID 5,000 MG in DEXTROSE 5% IN WATER 50 ML IV ONE ×4 (05:00)
[2017-09-05] MEDS ORDERED: SODIUM BICARB 8.4% 50 ML SYR (1 MEQ/ML) IV PRN (05:00)
[2017-09-05] MEDS ORDERED: METOPROLOL TARTRATE 12.5 MG TAB PO ONE (05:00)
[2017-09-05] MEDS ORDERED: ALBUMIN HUMAN 25% 50 ML in EMPTY BAG 1 BAG IVPB PRN (05:00)
[2017-09-05] MEDS ORDERED: PROTAMINE SULFATE 250 MG in EMPTY BAG 1 BAG IV PRN (05:00)
[2017-09-05] MEDS ORDERED: MAGNESIUM SULFATE SYG 4.06 MEQ/ML SYRINGE IV PRN (05:00)
[2017-09-05] MEDS ORDERED: NITROGLYCERIN-D5W PMX 25 MG/250 ML BTL IV PRN (05:00)
[2017-09-05] MEDS ORDERED: INSULIN REGULAR 100 UNIT in SODIUM CHLORIDE 0.9% 100 ML IV PRN (05:00)
[2017-09-05] MEDS ORDERED: PROPOFOL 1,000 MG in EMPTY BAG 1 BAG IV PRN ×2 (05:00→10:51)
[2017-09-05] MEDS ORDERED: CHLORHEXIDINE GLUCONATE 15 ML CUP MUCOUS MEM PRN (05:00)
[2017-09-05] MEDS ORDERED: DEXTROSE 5% IN WATER 1,000 ML with POTASSIUM CHLORIDE 25 MEQ, SODIUM CHLORIDE 4MEQ/ML V... IV PRN ×6 (05:00)
[2017-09-05] MEDS ORDERED: HEPARIN SODIUM 1,000 UN/ML (10ML VL) IV PRN (05:00)
[2017-09-05] MEDS ORDERED: AMINOCAPROIC ACID 250 MG/ML 20 ML VIAL IV ONE (05:00)
[2017-09-05] MEDS ORDERED: CLEVIDIPINE BUTYRATE 25 MG in EMPTY BAG 1 BAG IV PRN (05:00)
[2017-09-05] MEDS ORDERED: ceFAZolin 1,000 MG in SODIUM CHLORIDE 0.9% IRRIGATIO 1,000 ML IRRIGATION PRN (05:00)
[2017-09-05] MEDS ORDERED: PHENYLEPHRINE-0.9% NACL SYG 1 MG/10 ML SYRINGE IV PRN ×4 (05:00)
[2017-09-05] MEDS ORDERED: ceFAZolin 2 GM in SODIUM CHLORIDE 0.9% 30 ML IVPB PRN (05:00)
[2017-09-05] MEDS ORDERED: CALCIUM CHLORIDE 100 MG/ML 10 ML SYRINGE IVP PRN (05:00)
[2017-09-05] MEDS ORDERED: ceFAZolin 2,000 MG in SODIUM CHLORIDE 0.9% 30 ML IVPB PRN (05:00)
[2017-09-05] MEDS ORDERED: ATORVASTATIN 10 MG TAB PO ONE (05:00)
[2017-09-05] MEDS ORDERED: TRANEXAMIC ACID 2,000 MG in SODIUM CHLORIDE 0.9% 180 ML IV PRN (05:00)
[2017-09-05] MEDS ORDERED: NOREPINEPHRIN 4 MG-0.9% NS PMX 4 MG/250 ML ML IV PRN (05:00)
[2017-09-05] MEDS ORDERED: DEXTROSE 5% IN WATER 1,000 ML with POTASSIUM CHLORIDE 110 MEQ, MAGNESIUM SULFATE 16 MEQ... IV PRN ×5 (05:00)
[2017-09-05] MEDS ORDERED: PHENYLEPHRINE 40 MG in SODIUM CHLORIDE 0.9% 250 ML IV PRN (05:00)
[2017-09-05] MEDS ORDERED: LACTATED RINGERS 1,000 ML IV PRN (05:00)
[2017-09-05] MEDS: ISOSORBIDE MONONITRATE ER 30 MG TAB.ER.24H PO SCH (05:40)
[2017-09-05] MEDS: MUPIROCIN 2% OINT 22 GM TUBE NASAL SCH ×2 (05:40→21:16)
[2017-09-05] MEDS: DOXAZOSIN 4 MG TAB PO SCH ×2 (05:40→21:17)
[2017-09-05] MEDS: sulfaSALAzine 500 MG TAB PO SCH ×2 (05:40→21:16)
[2017-09-05 06:45] LABS: Basophils % (A) 0 %; Eosinophils # (A) 0.1 k/uL (0-0.7); Eosinophils % (A) 1 %; HCT 40.6 % (39.0-53.0); HGB 13.5 gm/dL (13.0-17.5); Lymphocytes # (A) 0.9 k/uL (1.0-4.8); Lymphocytes % (A) 21 %; MCH 33.3 pg (25.0-35.0); MCHC 33.3 g/dL (31.0-37.0); MCV 100.3 fL (80.0-100.0); Macrocytosis Slight; Mean Platelet Volume 8.3; Monocytes # (A) 0.3 k/uL (0-1.0); Monocytes % (A) 7 %; Neutrophils % (A) 68 %; Platelet Count 127 k/uL (150-450); RBC 4.05 m/uL (4.30-5.90); RDW 14.4 % (11.5-15.5); WBC 4.3 k/uL (3.8-10.6)
[2017-09-05 07:05] LABS: ALT 46 U/L (21-72); AST 29 U/L (17-59); Alkaline Phosphatase 37 U/L (38-126); Anion Gap 10 mmol/L; Blood Urea Nitrogen 13 mg/dL (9-20); Calcium 9.2 mg/dL (8.4-10.2); Carbon Dioxide 28 mmol/L (22-30); Chloride 104 mmol/L (98-107); Cholesterol 128 mg/dL (<200); Glucose 138 mg/dL (74-99); HDL Cholesterol 34 mg/dL (40-60); LDL Cholesterol,Calculated 60 mg/dL (0-99); Potassium 4.2 mmol/L (3.5-5.1); Sodium 142 mmol/L (137-145); Total Bilirubin 0.8 mg/dL (0.2-1.3); Total Protein 6.1 g/dL (6.3-8.2); Triglycerides 171 mg/dL (<150)
[2017-09-05 07:06] LABS: Prothrombin Time 10.1 sec (9.0-12.0)
[2017-09-05 07:20] LABS: Glucose,Whole Blood 133 mg/dL (75-99)
[2017-09-05] MEDS ORDERED: METOPROLOL TARTRATE 50 MG TAB PO ONE (07:27)
[2017-09-05] MEDS ORDERED: MIDAZOLAM 2 MG/2 ML VIAL ONE ×2 (07:45)
[2017-09-05] MEDS ORDERED: fentaNYL (PF) 50 MCG/ML 2 ML AMP ONE ×2 (07:45)
[2017-09-05] MEDS ORDERED: PAPAVERINE 360 MG in SODIUM CHLORIDE 0.9% 90 ML IV STA (08:23)
[2017-09-05] MEDS ORDERED: ATORVASTATIN 20 MG TAB PO SCH (09:00)
[2017-09-05] MEDS ORDERED: ASPIRIN 81 MG PO SCH (09:00)
--- NOTE | 2017-09-05 10:20 | P.PN ---
Subjective Progress Note Date: 09/05/17 Principal diagnosis: Coronary artery disease with left main disease. Previous medical history of myocardial infarction with stent placement in 2001, hypertension, diabetes mellitus type 2, hyperlipidemia, DVT of the left lower extremity in September 2016, previous tobacco dependence, family history of premature coronary artery disease with father from myocardial infarction at 49 years old, multiple orthopedic surgeries. Patient's currently sitting up in bed in no acute distress. Denies chest pain, shortness of breath. No new complaints. Awaiting coronary artery bypass graft surgery. Objective - Vital Signs Vital signs: Vital Signs Temp 97.8 F 09/05/17 07:08 Pulse 53 L 09/05/17 07:08 Resp 20 09/05/17 07:08 BP 140/63 09/05/17 07:08 Pulse Ox 96 09/05/17 07:08 Intake & Output 09/04/17 09/05/17 09/05/17 18:59 06:59 18:59 Intake Total 744 Output Total 1500 Balance -756 Weight 100.5 kg Intake: IV 300 Sodium Chloride 0.9% 1, 100 000 ml @ 100 mls/hr IV . Q10H ASHLEY Rx#:[id number] Oral 444 Output: Urine 1500 Other: # Voids 2 - Constitutional General appearance: Present: cooperative, no acute distress, obese - Respiratory Details: Lungs sounds clear bilaterally. Respirations even, nonlabored. Currently on 2 L nasal cannula oxygen saturation 98%. - Cardiovascular Details: S1, S2 present. Slow but regular rate and rhythm, sinus bradycardia on telemetry. Palpable peripheral pulses bilaterally. No edema present. Left radial arterial line present. - Gastrointestinal Gastrointestinal Comment(s): Abdomen soft, nontender, nondistended. Active bowel sounds 4 quadrants. - Genitourinary Genitourinary Comment(s): Continues to void. - Integumentary Integumentary Comment(s): Skin warm, dry, pink. - Neurologic Neurologic: Present: CNII-XII intact - Musculoskeletal Musculoskeletal: Present: gait normal, strength equal bilaterally - Psychiatric Psychiatric: Present: A&O x's 3, appropriate affect, intact judgment & insight - Allied health notes Allied health notes reviewed: nursing - Labs CBC & Chem 7: 09/05/17 06:02 09/05/17 06:02 Labs: Abnormal Lab Results - Last 24 Hours (Table) 09/04/17 09/04/17 09/04/17 Range/Units 11:43 11:43 11:43 RBC 3.85 L (4.30-5.90) m/uL Hgb 12.8 L (13.0-17.5) gm/dL Hct 38.7 L (39.0-53.0) % MCV 100.6 H (80.0-100.0) fL Plt Count 131 L (150-450) k/uL Lymphocytes # (1.0-4.8) k/uL Glucose 135 H (74-99) mg/dL POC Glucose (mg/dL) (75-99) mg/dL Alkaline Phosphatase 33 L (38-126) U/L Total Protein 5.5 L (6.3-8.2) g/dL Triglycerides (<150) mg/dL HDL Cholesterol 30 L (40-60) mg/dL Crossmatch See Detail 09/05/17 09/05/17 09/05/17 Range/Units 06:02 06:02 07:16 RBC 4.05 L (4.30-5.90) m/uL Hgb (13.0-17.5) gm/dL Hct (39.0-53.0) % MCV 100.3 H (80.0-100.0) fL Plt Count 127 L (150-450) k/uL Lymphocytes # 0.9 L (1.0-4.8) k/uL Glucose 138 H (74-99) mg/dL POC Glucose (mg/dL) 133 H (75-99) mg/dL Alkaline Phosphatase 37 L (38-126) U/L Total Protein 6.1 L (6.3-8.2) g/dL Triglycerides 171 H (<150) mg/dL HDL Cholesterol 34 L (40-60) mg/dL Crossmatch Microbiology - Last 24 Hours (Table) 09/04/17 15:20 Urine Culture - Preliminary Urine,Clean Catch 09/04/17 14:13 Nasal Screen MRSA/MSSA ([facility]) - Preliminary Nasopharyngeal Swab - Imaging and Cardiology Chest x-ray: report reviewed, image reviewed Carotid Dopplers, pulmonary function test reviewed. Assessment and Plan (1) Coronary artery disease Current Visit: Yes Status: Chronic Code(s): I25.10 - ATHSCL HEART DISEASE OF [place] CORONARY ARTERY W/O ANG PCTRS SNOMED Code(s): 99976647 (2) Hypertension Current Visit: Yes Status: Chronic Code(s): I10 - ESSENTIAL (PRIMARY) HYPERTENSION SNOMED Code(s): 73786105 (3) Diabetes mellitus type 2 in obese Current Visit: Yes Status: Chronic Code(s): E11.69 - TYPE 2 DIABETES MELLITUS WITH OTHER SPECIFIED COMPLICATION; E66.9 - OBESITY, UNSPECIFIED SNOMED Code(s): 18879521 (4) Family history of premature coronary artery disease Current Visit: Yes Status: Chronic Code(s): Z82.49 - FAMILY HX OF ISCHEM HEART DIS AND OTH DIS OF THE CIRC SYS SNOMED Code(s): 061999132 (5) Previous myocardial infarction older than 8 weeks Current Visit: No Status: Resolved Code(s): I25.2 - OLD MYOCARDIAL INFARCTION SNOMED Code(s): 5747620 (6) History of heart artery stent Current Visit: No Status: Resolved Code(s): Z95.5 - PRESENCE OF CORONARY ANGIOPLASTY IMPLANT AND GRAFT SNOMED Code(s): 881775093 (7) Hyperlipidemia Current Visit: Yes Status: Chronic Code(s): E78.5 - HYPERLIPIDEMIA, UNSPECIFIED SNOMED Code(s): 04190566 (8) History of DVT (deep vein thrombosis) Current Visit: No Status: Resolved Code(s): Z86.718 - PERSONAL HISTORY OF OTHER VENOUS THROMBOSIS AND EMBOLISM SNOMED Code(s): 950523315 (9) Arthritis Current Visit: Yes Status: Chronic Code(s): M19.90 - UNSPECIFIED OSTEOARTHRITIS, UNSPECIFIED SITE SNOMED Code(s): 0573944 (10) Tobacco dependence in remission Current Visit: No Status: Resolved Code(s): F17.201 - NICOTINE DEPENDENCE, UNSPECIFIED, IN REMISSION SNOMED Code(s): 944645955 (11) Obesity (BMI 30-39.9) Current Visit: Yes Status: Chronic Code(s): E66.9 - OBESITY, UNSPECIFIED SNOMED Code(s): 433153116 (12) Left main coronary artery disease Current Visit: Yes Status: Chronic Code(s): I25.10 - ATHSCL HEART DISEASE OF [place] CORONARY ARTERY W/O ANG PCTRS SNOMED Code(s): 140683629 Plan: 1. Continue aspirin, statin, beta tony. 2. Continue to hold Xarelto. 3. Encourage incentive spirometry use. 4. Increase activity, ambulate in hallway. 5. Reinforce preoperative teaching. 6. Anticipate coronary artery bypass graft surgery tomorrow, 09/06/2017. Time with Patient: Greater than 30
[2017-09-05 10:32] LABS: Glucose,Whole Blood 150 mg/dL (75-99)
--- NOTE | 2017-09-05 11:57 | P.PN ---
Subjective Progress Note Date: 09/05/17 Principal diagnosis: Severe coronary artery disease This is a very pleasant 76-year-old gentleman who follows with Dr. Jarett Oakley as his primary care physician. He has a history of diabetes mellitus, hyperlipidemia, hypertension, colitis, BPH, osteoarthritis with multiple surgeries including bilateral knee replacements. He also states his right hip is needing to be replaced. He was here in September 2016 with a left leg DVT and he remains on Xarelto. He has a remote history of chronic tobacco dependence for approximately 30 years. He did however quit in 1997. Denies having any pulmonary symptoms. He's never been on inhalers or oxygen the outpatient setting. He had not been seen by a trust vault custodian in the past. He does have a history of coronary artery disease with previous myocardial infarction and stent placement in 2001. Since that time he had been doing quite well from the cardiac standpoint. Recently he had noticed some chest discomfort while shoveling snow and was seen by Dr. Oakley and subsequently with cardiology and was brought in for an outpatient cardiac catheterization today. Xarelto was stopped on 09/01/2017. He was found to have heavily calcified coronary arteries. He had significant 60-70% distal left main disease, significant 80% mid LAD disease and moderate 60-70% disease in the left circumflex. The plan is for coronary artery bypass grafting within the next 24- 48 hours. He is seen today in consultation on the selective care unit. He is resting flat in bed. He is awake and alert in no acute distress. He denies any shortness of breath, cough or congestion. No chest discomfort currently stating he has not had any since starting isosorbide mononitrate. He remains hemodynamically stable. Maintaining good O2 saturations in the mid to upper 90s on room air. Patient was reevaluated today on 09/05/2017, doing well, relatively asymptomatic , Xarelto remains on hold, and the patient is scheduled to undergo myocardial revascularization tomorrow in a.m. Pulmonary-eng, no cough no wheezing no shortness of breath. Labs were reviewed, relatively normal electrolytes are normal CBC noted. Chest x-ray showed no acute process. Bedside PFT is pending. Objective - Vital Signs Vital signs: Vital Signs Temp 97.8 F 09/05/17 10:30 Pulse 52 L 09/05/17 10:30 Resp 13 09/05/17 10:30 BP 113/63 09/05/17 10:30 Pulse Ox 94 L 09/05/17 10:30 Intake & Output 09/04/17 09/05/17 09/05/17 18:59 06:59 18:59 Intake Total 744 50 Output Total 1500 Balance -756 50 Weight 100.5 kg 105.6 kg Intake: IV 300 50 Lactated Ringers 1,000 ml 50 @ 10 mls/hr IV .Q24H PRN Rx#:[id number] Sodium Chloride 0.9% 1, 100 000 ml @ 100 mls/hr IV . Q10H [facility] Rx#:[id number] Oral 444 Output: Urine 1500 Other: # Voids 2 ABP, PAP, CO, CI - Last Documented Arterial Blood Pressure 133/55 - Exam GENERAL EXAM: Alert, comfortable in no apparent distress. HEAD: Normocephalic. EYES: Normal reaction of pupils, equal size. NOSE: Clear with pink turbinates. THROAT: No erythema or exudates. NECK: No masses, no JVD. CHEST: No chest wall deformity. LUNGS: Equal air entry with no crackles, wheeze, rhonchi or dullness. CVS: S1 and S2 normal with no audible murmur, regular rhythm. ABDOMEN: No hepatosplenomegaly, normal bowel sounds, no guarding or rigidity. SPINE: No scoliosis or deformity SKIN: No rashes CENTRAL NERVOUS SYSTEM: No focal deficits, tone is normal in all 4 extremities. EXTREMITIES: There is no peripheral edema. No clubbing, no cyanosis. Peripheral pulses are intact. - Labs CBC & Chem 7: 09/05/17 06:02 09/05/17 06:02 Labs: Abnormal Lab Results - Last 24 Hours (Table) 09/04/17 09/04/17 09/04/17 Range/Units 11:43 11:43 11:43 RBC 3.85 L (4.30-5.90) m/uL Hgb 12.8 L (13.0-17.5) gm/dL Hct 38.7 L (39.0-53.0) % MCV 100.6 H (80.0-100.0) fL Plt Count 131 L (150-450) k/uL Lymphocytes # (1.0-4.8) k/uL Glucose 135 H (74-99) mg/dL POC Glucose (mg/dL) (75-99) mg/dL Alkaline Phosphatase 33 L (38-126) U/L Total Protein 5.5 L (6.3-8.2) g/dL Triglycerides (<150) mg/dL HDL Cholesterol 30 L (40-60) mg/dL Crossmatch See Detail 09/05/17 09/05/17 09/05/17 Range/Units 06:02 06:02 07:16 RBC 4.05 L (4.30-5.90) m/uL Hgb (13.0-17.5) gm/dL Hct (39.0-53.0) % MCV 100.3 H (80.0-100.0) fL Plt Count 127 L (150-450) k/uL Lymphocytes # 0.9 L (1.0-4.8) k/uL Glucose 138 H (74-99) mg/dL POC Glucose (mg/dL) 133 H (75-99) mg/dL Alkaline Phosphatase 37 L (38-126) U/L Total Protein 6.1 L (6.3-8.2) g/dL Triglycerides 171 H (<150) mg/dL HDL Cholesterol 34 L (40-60) mg/dL Crossmatch 09/05/17 Range/Units 10:20 RBC (4.30-5.90) m/uL Hgb (13.0-17.5) gm/dL Hct (39.0-53.0) % MCV (80.0-100.0) fL Plt Count (150-450) k/uL Lymphocytes # (1.0-4.8) k/uL Glucose (74-99) mg/dL POC Glucose (mg/dL) 150 H (75-99) mg/dL Alkaline Phosphatase (38-126) U/L Total Protein (6.3-8.2) g/dL Triglycerides (<150) mg/dL HDL Cholesterol (40-60) mg/dL Crossmatch Microbiology - Last 24 Hours (Table) 09/04/17 15:20 Urine Culture - Preliminary Urine,Clean Catch 09/04/17 14:13 Nasal Screen MRSA/MSSA ([facility]) - Preliminary Nasopharyngeal Swab Assessment and Plan Assessment: #1 Exertional chest pain in a patient found to have significant coronary artery disease. Cardiac catheterization today revealed heavily calcified coronary arteries. He had significant 60-70% distal left main disease, significant 80% mid LAD disease and moderate 60-70% disease in the left circumflex. The plan is for coronary artery bypass grafting within the next 24-48 hours. #2 History of coronary artery disease with previous myocardial infarction and stent placement in 2001. 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 Held since 09/01/2017. #4 Remote history of approximately 30 years at 1 pack per day chronic tobacco dependence, however quit in 1997. #5 Diabetes mellitus, type II. #6 Hypertension. #7 Hyperlipidemia. #8 Benign prostatic hypertrophy. #9 History of colitis. #10 Osteoarthritis with multiple orthopedic surgeries including bilateral knee replacements and cervical spine surgery. Eventually needing a right hip replacement as well. Recommendation: Patient was cleared for surgery, considered relatively low operative risk, we'll see postoperatively. In the meantime continue incentive spirometry. Time with Patient: Less than 30
[2017-09-05 12:17] LABS: Glucose,Whole Blood 241 mg/dL (75-99)
--- NOTE | 2017-09-05 13:09 | P.CONS ---
History of Present Illness - Reason for Consult Consult date: 09/05/17 Medical management - Chief Complaint chest pain, triple vessel disease - History of Present Illness 76-year-old male who sees Dr. Oakley in the outpatient setting. The patient has been having chest pain on and off for the last few months. He was referred to cardiology and underwent scheduled outpatient cardiac catheterization on 09/04/[address] Hermosillo and was found to have triple vessel disease including 60-70% stenosis of left main, 80% stenosis of mid LAD, 60-70% left circumflex artery, and 70% obtuse marginal branch. He was admitted to the selective care unit. Dr. Oakley was consulted for medical management. Dr. Chaudhary was consulted for myocardial revascularization. The patient has a history of coronary artery disease with previous stent placement in 2001, hypertension, hyperlipidemia, DVT of the left lower extremity in 2016 and was prescribed Xarelto. He has a family history of premature coronary artery disease. He is a former cigarette smoker and quit in 1997. The patient was seen and examined at the bedside this morning by Dr. Oakley. He states he is feeling relatively well at this time. He denies shortness of breath. Denies chest pain or pressure. His Xarelto remains on hold at this time. He is scheduled for CABG tomorrow 09/06/2017. He denies nausea or vomiting at this time. Denies pain or discomfort. His vital signs have remained stable. Blood pressure this morning was 122/67. His heart rate is in the 50s. He is afebrile with a temperature of 97.8. Chest x-ray completed on 09/04/2017 is negative for an acute process. Bilateral carotid Doppler was completed on 03/04/2018 which revealed no hemodynamic significant stenosis of the bilateral carotid arteries. He denies any further concerns or complaints at this time. Review of Systems GENERAL: Patient denies fever. Denies chills. EYES: Denies blurred vision. Denies vision changes. Denies eye pain. EARS, NOSE, MOUTH, & THROAT: Denies headache. Denies sore throat. Denies ear pain. RESPIRATORY: Denies cough. Denies shortness of breath. Denies sputum production. Denies hemoptysis. CARDIOVASCULAR: Positive for chest pain on and off 3 months. Currently denies chest pain or pressure. Denies palpitations. Denies arrhythmias. GASTROINTESTINAL: Denies abdominal pain. Denies diarrhea. Denies constipation. Denies nausea. Denies vomiting. Denies heartburn. Denies blood in the stool. GENITOURINARY: Denies urinary frequency. Denies burning. Denies dysuria. Denies cloudy urine. Denies blood in the urine. MUSCULOSKELETAL: Denies myalgias. Denies joint swelling. Denies decreased range of motion beyond patients baseline. INTEGUMENTARY: Denies pruitis. Denies rash. PSYCHIATRIC: Denies suicidal or homicial ideations. ENDOCRINE: Denies weight change. Denies polydipsia. Denies polyuria. HEMATOLOGIC: Denies bleeding disorders. Past Medical History Past Medical History: Coronary Artery Disease (CAD), Diabetes Mellitus, Deep Vein Thrombosis (DVT), Hyperlipidemia, Hypertension, Myocardial Infarction ([place]) , Osteoarthritis (OA), Prostate Disorder Additional Past Medical History / Comment(s): Colitis, left lower extremity DVT chronic in nature. Remains on Xarelto. Last Myocardial Infarction Date:: 2001 History of Any Multi-Drug Resistant Organisms: None Reported Past Surgical History: Appendectomy, Heart Catheterization With Stent, Joint Replacement, Orthopedic Surgery Additional Past Surgical History / Comment(s): Bilateral knee replacements. Cervical spine surgery. Past Anesthesia/Blood Transfusion Reactions: No Reported Reaction Date of Last Stent Placement:: 2001 Smoking Status: Former smoker Past Alcohol Use History: Rare Past Drug Use History: None Reported - Past Family History Mother Family Medical History: No Reported History Father Family Medical History: Myocardial Infarction ([place]) Additional Family Medical History / Comment(s): Father of a myocardial infarction at 49 years old Medications and Allergies Home Medications Medication Instructions Recorded Confirmed Type Celecoxib [CeleBREX] 200 mg PO DAILY 08/30/17 09/04/17 History Doxazosin [Cardura] 4 mg PO BID 08/30/17 09/04/17 History Isosorbide Mononitrate [Isosorbide 30 mg PO DAILY 08/30/17 09/04/17 History Mononitrate ER] Metoprolol Succinate [Toprol XL] 50 mg PO DAILY 08/30/17 09/04/17 History Rivaroxaban [Xarelto] 20 mg PO DAILY 08/30/17 09/04/17 History Simvastatin [Zocor] 40 mg PO DAILY 08/30/17 09/04/17 History metFORMIN HCL [Glucophage] 500 mg PO BID 08/30/17 09/04/17 History sulfaSALAzine [Azulfidine] 500 mg PO BID 08/30/17 09/04/17 History ALPRAZolam [Xanax] 1 mg PO HS 09/04/17 09/04/17 History Allergies Allergy/AdvReac Type Severity Reaction Status Date / Time No Known Allergies Allergy Verified 09/04/17 09:51 Physical Exam Vitals: Vital Signs Temp Pulse Pulse Pulse Pulse Resp BP 09/05/17 10:30 97.8 F 52 L 13 113/63 09/05/17 07:08 97.8 F 53 L 53 L 20 09/05/17 05:37 52 L 18 09/05/17 04:45 97.1 F L 73 18 09/05/17 04:00 18 09/05/17 00:00 97.5 F L 56 L 18 09/04/17 20:00 18 09/04/17 19:50 97.8 F 55 L 18 09/04/17 16:00 97.5 F L 50 L 56 L 16 09/04/17 14:50 55 L 16 09/04/17 13:50 53 L 16 09/04/17 12:50 53 L 16 BP BP BP Pulse Ox 09/05/17 10:30 94 L 09/05/17 07:08 140/63 122/67 96 09/05/17 05:37 124/73 94 L 09/05/17 04:45 128/68 130/70 94 L 09/05/17 04:00 09/05/17 00:00 110/72 94 L 09/04/17 20:00 09/04/17 19:50 124/67 95 09/04/17 16:00 123/64 94 L 09/04/17 14:50 119/67 95 09/04/17 13:50 118/56 95 09/04/17 12:50 112/54 93 L Intake and Output 09/04/17 09/05/17 09/05/17 22:59 06:59 14:59 Intake Total 222 50 Output Total 1000 Balance -778 50 Intake: IV 50 Lactated Ringers 1,000 ml 50 @ 10 mls/hr IV .Q24H PRN Rx#:[id number] Oral 222 Output: Urine 1000 Other: # Voids 2 Weight 102.058 kg 100.5 kg 105.6 kg Patient Weight 09/06/17 06:59 Weight 105.6 kg ABP, PAP, CO, CI - Last 8 Hours Arterial Blood Pressure 133/55 GENERAL: This is a 76-year-old male in no apparent distress at the time of examination. Pleasant and cooperative. HEENT: Head is atraumatic, normocephalic. Pupils are equal, round, and reactive to light. Sclerae anicteric. Conjunctivae are clear. Mucus membranes of the mouth are moist. Neck is supple. RESPIRATORY: Clear to ausculation. No wheezes, rales, or rhonchi. No use of accessory muscles. Patient maintaining oxygen saturation greater than 92%. No chest wall tenderness is noted on palpation or with deep breathing. CARDIOVASCULAR: Regular rate and rhythm. S1 and S2 noted. No systolic or diastolic murmur auscultated. No JVD noted. No S3 or S4 noted. GASTROINTESTINAL: No distention noted. Abdomen soft and round. Normal active bowel sounds auscultated X 4 quadrants. No pain or tenderness noted upon palpation. INTEGUMENTARY: No cyanosis. No jaundice. No rashes noted. No cellulitis noted. EXTREMITIES: 2+ peripheral pulses. No evidence of peripheral edema. No calf tenderness noted. NEUROLOGIC: Cranial nerves II-XII intact. PSYCHIATRIC: Awake, alert, and oriented X 3. Appropriate affect. Intact judgement and insight. Results CBC & Chem 7: 09/05/17 06:02 09/05/17 06:02 Labs: Abnormal Lab Results - Last 24 Hours (Table) 09/04/17 09/04/17 09/04/17 Range/Units 11:43 11:43 11:43 RBC 3.85 L (4.30-5.90) m/uL Hgb 12.8 L (13.0-17.5) gm/dL Hct 38.7 L (39.0-53.0) % MCV 100.6 H (80.0-100.0) fL Plt Count 131 L (150-450) k/uL Lymphocytes # (1.0-4.8) k/uL Glucose 135 H (74-99) mg/dL POC Glucose (mg/dL) (75-99) mg/dL Alkaline Phosphatase 33 L (38-126) U/L Total Protein 5.5 L (6.3-8.2) g/dL Triglycerides (<150) mg/dL HDL Cholesterol 30 L (40-60) mg/dL Crossmatch See Detail 09/05/17 09/05/17 09/05/17 Range/Units 06:02 06:02 07:16 RBC 4.05 L (4.30-5.90) m/uL Hgb (13.0-17.5) gm/dL Hct (39.0-53.0) % MCV 100.3 H (80.0-100.0) fL Plt Count 127 L (150-450) k/uL Lymphocytes # 0.9 L (1.0-4.8) k/uL Glucose 138 H (74-99) mg/dL POC Glucose (mg/dL) 133 H (75-99) mg/dL Alkaline Phosphatase 37 L (38-126) U/L Total Protein 6.1 L (6.3-8.2) g/dL Triglycerides 171 H (<150) mg/dL HDL Cholesterol 34 L (40-60) mg/dL Crossmatch 09/05/17 09/05/17 Range/Units 10:20 12:15 RBC (4.30-5.90) m/uL Hgb (13.0-17.5) gm/dL Hct (39.0-53.0) % MCV (80.0-100.0) fL Plt Count (150-450) k/uL Lymphocytes # (1.0-4.8) k/uL Glucose (74-99) mg/dL POC Glucose (mg/dL) 150 H 241 H (75-99) mg/dL Alkaline Phosphatase (38-126) U/L Total Protein (6.3-8.2) g/dL Triglycerides (<150) mg/dL HDL Cholesterol (40-60) mg/dL Crossmatch Microbiology - Last 24 Hours (Table) 09/04/17 15:20 Urine Culture - Preliminary Urine,Clean Catch 09/04/17 14:13 Nasal Screen MRSA/MSSA ([facility]) - Preliminary Nasopharyngeal Swab Assessment and Plan Plan: ASSESSMENT: Complaints of intermittent chest pain 3 months, s/p cardiac catheterization on 09/04/2017 revealing 60-70% stenosis of left main, 80% stenosis of mid LAD, 60- 70% left circumflex artery, and 70% disease of obtuse marginal branch Coronary artery disease with previous myocardial infarction and stent placement History of deep vein thrombosis of left lower extremity, maintained on long- term anticoagulation with Xarelto, currently on hold Diabetes mellitus, type II, hemoglobin A1c pending Essential hypertension Hyperlipidemia Family history of premature coronary artery disease Osteoarthritis History of nicotine dependence, in remission, patient quit smoking cigarettes in 1997 Obesity: BMI 37.6 PLAN: -Continue management per cardiology and cardiothoracic service -Patient scheduled for CABG tomorrow, 09/06/2017 -Await results of hemoglobin A1c -Capillary blood glucose Accu-Cheks before meals and at bedtime -NovoLog sliding scale coverage before meals and at bedtime -Initiate insulin drip after surgery per protocol -Home meds as appropriate -Monitor labs -GI/DVT prophylaxis -Monitor vital signs and address as appropriate -Further recommendations pending patient's course Nurse practitioner note has been reviewed by physician. Signing provider agrees with the documented findings, assessment, and plan of care.
--- NOTE | 2017-09-05 15:04 | PN ---
PROGRESS NOTE Mr. Caceres is a 76-year-old male who underwent cardiac catheterization and has been evaluated to undergo coronary bypass grafting. He is doing well this morning. His breathing has been stable. He denies any chest pain. No dizziness or palpitation. He denies any nausea. He continues to be at this time on aspirin once a day, Lipitor 80 mg daily, metoprolol. PHYSICAL EXAMINATION: Blood pressure 107/60 with a heart in the 70s. LUNGS: Clear. HEART: Rate rhythm S1, S2. No S3. No rub. ABDOMEN: Soft, nontender. Right radial pulse is intact. LAB DATA: BUN and creatinine of 13 and 0.89. Potassium 4.2. IMPRESSION: 1. Severe coronary artery disease, scheduled for coronary bypass grafting. 2. Hypertension. 3. Hyperlipidemia. RECOMMENDATION: Patient will continue current therapy and proceed with coronary artery bypass grafting tomorrow. MMODL / IJN: [id number] /
[2017-09-05 16:07] LABS: Hemoglobin A1C 8.5 % (4.0-6.0)
[2017-09-05 18:20] LABS: Glucose,Whole Blood 189 mg/dL (75-99)
[2017-09-05] MEDS: INSULIN ASPART 100 UNIT/ML 1 ML 10 ML VIAL SQ SCH ×2 (18:21→20:56)
[2017-09-05 20:55] LABS: Glucose,Whole Blood 170 mg/dL (75-99)
[2017-09-05] MEDS: ALPRAZolam 0.5 MG TAB PO SCH (21:17)
[2017-09-06] MEDS ORDERED: MAGNESIUM SULFATE SYG 4.06 MEQ/ML SYRINGE IV PRN (05:00)
[2017-09-06] MEDS ORDERED: PHENYLEPHRINE-0.9% NACL SYG 1 MG/10 ML SYRINGE IV PRN ×4 (05:00)
[2017-09-06] MEDS ORDERED: PHENYLEPHRINE 40 MG in SODIUM CHLORIDE 0.9% 250 ML IV PRN (05:00)
[2017-09-06] MEDS ORDERED: NITROGLYCERIN-D5W PMX 25 MG/250 ML BTL IV PRN (05:00)
[2017-09-06] MEDS ORDERED: ALBUMIN HUMAN 5% 500 ML in EMPTY BAG 1 BAG IVPB PRN ×6 (05:00)
[2017-09-06] MEDS ORDERED: PROTAMINE SULFATE 250 MG in EMPTY BAG 1 BAG IV PRN (05:00)
[2017-09-06] MEDS ORDERED: TRANEXAMIC ACID 2,000 MG in SODIUM CHLORIDE 0.9% 180 ML IV PRN (05:00)
[2017-09-06] MEDS ORDERED: CLEVIDIPINE BUTYRATE 25 MG in EMPTY BAG 1 BAG IV PRN (05:00)
[2017-09-06] MEDS ORDERED: ceFAZolin 1,000 MG in SODIUM CHLORIDE 0.9% IRRIGATIO 1,000 ML IRRIGATION PRN (05:00)
[2017-09-06] MEDS ORDERED: DEXTROSE 5% IN WATER 1,000 ML with POTASSIUM CHLORIDE 110 MEQ, MAGNESIUM SULFATE 16 MEQ... IV PRN ×5 (05:00)
[2017-09-06] MEDS ORDERED: ceFAZolin 2,000 MG in SODIUM CHLORIDE 0.9% 30 ML IVPB PRN (05:00)
[2017-09-06] MEDS ORDERED: ASPIRIN 325 MG TAB PO ONE (05:00)
[2017-09-06] MEDS ORDERED: CHLORHEXIDINE GLUCONATE 15 ML CUP MUCOUS MEM PRN (05:00)
[2017-09-06] MEDS ORDERED: PROTAMINE SULFATE 10 MG/ML 25 ML VIAL IV PRN (05:00)
[2017-09-06] MEDS ORDERED: ceFAZolin 2 GM in SODIUM CHLORIDE 0.9% 30 ML IVPB PRN (05:00)
[2017-09-06] MEDS ORDERED: ALBUMIN HUMAN 25% 50 ML in EMPTY BAG 1 BAG IVPB PRN (05:00)
[2017-09-06] MEDS ORDERED: ATORVASTATIN 10 MG TAB PO ONE (05:00)
[2017-09-06] MEDS ORDERED: DEXTROSE 5% IN WATER 1,000 ML with POTASSIUM CHLORIDE 25 MEQ, SODIUM CHLORIDE 4MEQ/ML V... IV PRN ×6 (05:00)
[2017-09-06] MEDS ORDERED: HEPARIN SODIUM,PORCINE 5,000 UNIT in SODIUM CHLORIDE 0.9% 500 ML IV PRN (05:00)
[2017-09-06] MEDS ORDERED: METOPROLOL TARTRATE 12.5 MG TAB PO ONE (05:00)
[2017-09-06] MEDS ORDERED: NITROGLYCERIN-D5W PMX 50 MG in DEXTROSE/WATER 1 250ML.BAG IV PRN (05:00)
[2017-09-06] MEDS ORDERED: SODIUM BICARB 8.4% 50 ML SYR (1 MEQ/ML) IV PRN (05:00)
[2017-09-06] MEDS ORDERED: NOREPINEPHRIN 4 MG-0.9% NS PMX 4 MG/250 ML ML IV PRN (05:00)
[2017-09-06] MEDS ORDERED: INSULIN REGULAR 100 UNIT in SODIUM CHLORIDE 0.9% 100 ML IV PRN (05:00)
[2017-09-06] MEDS ORDERED: HEPARIN SODIUM 1,000 UN/ML (10ML VL) IV PRN (05:00)
[2017-09-06] MEDS ORDERED: LACTATED RINGERS 1,000 ML IV PRN (05:00)
[2017-09-06] MEDS ORDERED: MANNITOL 25% 12.5 GM/50 ML VIAL IV PRN ×2 (05:00)
[2017-09-06] MEDS ORDERED: CALCIUM CHLORIDE 100 MG/ML 10 ML SYRINGE IVP PRN (05:00)
[2017-09-06] MEDS ORDERED: PAPAVERINE 360 MG in SODIUM CHLORIDE 0.9% 90 ML IV PRN (05:00)
[2017-09-06 05:15] LABS: Basophils % (A) 0 %; Eosinophils # (A) 0.1 k/uL (0-0.7); Eosinophils % (A) 1 %; HGB 13.4 gm/dL (13.0-17.5); Lymphocytes # (A) 1.2 k/uL (1.0-4.8); Lymphocytes % (A) 23 %; MCHC 33.6 g/dL (31.0-37.0); MCV 98.4 fL (80.0-100.0); Mean Platelet Volume 8.6; Monocytes # (A) 0.4 k/uL (0-1.0); Monocytes % (A) 7 %; Neutrophils # (A) 3.5 k/uL (1.3-7.7); Neutrophils % (A) 67 %; Platelet Count 133 k/uL (150-450); RBC 4.07 m/uL (4.30-5.90); RDW 14.6 % (11.5-15.5); WBC 5.2 k/uL (3.8-10.6)
[2017-09-06 05:24] LABS: INR 1.1 (<1.2); Prothrombin Time 10.6 sec (9.0-12.0)
[2017-09-06 05:45] LABS: ALT 46 U/L (21-72); AST 24 U/L (17-59); Albumin 3.9 g/dL (3.5-5.0); Alkaline Phosphatase 40 U/L (38-126); Anion Gap 9 mmol/L; Blood Urea Nitrogen 12 mg/dL (9-20); Calcium 9.1 mg/dL (8.4-10.2); Carbon Dioxide 27 mmol/L (22-30); Chloride 104 mmol/L (98-107); Glucose 127 mg/dL (74-99); Magnesium 1.9 mg/dL (1.6-2.3); Phosphorus 3.7 mg/dL (2.5-4.5); Potassium 3.8 mmol/L (3.5-5.1); Sodium 140 mmol/L (137-145); Total Bilirubin 0.8 mg/dL (0.2-1.3); Total Protein 6.1 g/dL (6.3-8.2)
[2017-09-06 06:32] LABS: Glucose,Whole Blood 134 mg/dL (75-99)
[2017-09-06] MEDS ORDERED: PROTAMINE SULFATE 10 MG/ML 25 ML VIAL IV ONE (08:12)
[2017-09-06] MEDS ORDERED: ELECTROLYTE-R (PH 7.4) 1,000 ML IV.SOLN IV ONE (08:12)
[2017-09-06] MEDS ORDERED: SODIUM CHLORIDE 0.9% IRRIG 1,000 ML BTL IRRIGATION ONE (08:12)
[2017-09-06] MEDS ORDERED: MIDAZOLAM 2 MG/2 ML VIAL ONE (08:12)
[2017-09-06] MEDS ORDERED: fentaNYL (PF) 50 MCG/ML 2 ML AMP ONE (08:12)
[2017-09-06] MEDS ORDERED: TRANEXAMIC ACID 1,000 MG/10 ML VIAL ONE (08:12)
[2017-09-06] MEDS ORDERED: SODIUM CHLORIDE 0.9% 250 ML BAG ONE (08:12)
[2017-09-06] MEDS ORDERED: fentaNYL (PF) 50 MCG/ML 50 ML VIAL ONE (08:12)
[2017-09-06] MEDS ORDERED: VECURONIUM 10 MG VIAL IV ONE (08:12)
[2017-09-06] MEDS ORDERED: CALCIUM CHLORIDE 100 MG/ML 10 ML SYRINGE ONE (08:12)
[2017-09-06] MEDS ORDERED: MAGNESIUM SULFATE 4 MEQ/ML 2 ML VIAL ONE (08:12)
[2017-09-06] MEDS ORDERED: ePHEDrine SULFATE/0.9% NACL/PF 50 MG/5 ML SYRINGE IV ONE (08:12)
[2017-09-06] MEDS ORDERED: LIDOCAINE 2% SYG (PF) 100 MG/5 ML ONE (08:12)
[2017-09-06] MEDS ORDERED: HEPARIN SODIUM,PORCINE 10,000 UNIT/ML 1 ML VIAL ONE (08:12)
[2017-09-06] MEDS ORDERED: PHENYLEPHRINE-0.9% NACL SYG 1 MG/10 ML SYRINGE ONE (08:12)
[2017-09-06] MEDS ORDERED: PROPOFOL 10 MG/ML 20 ML VIAL IV ONE (08:12)
[2017-09-06 08:56] LABS: Glucose,Whole Blood 177 mg/dL (75-99)
--- NOTE | 2017-09-06 09:30 | P.PN ---
Subjective Progress Note Date: 09/06/17 76-year-old male who sees Dr. Oakley in the outpatient setting. The patient has been having chest pain on and off for the last few months. He was referred to cardiology and underwent scheduled outpatient cardiac catheterization on 09/04/[address] Hermosillo and was found to have triple vessel disease including 60-70% stenosis of left main, 80% stenosis of mid LAD, 60-70% left circumflex artery, and 70% obtuse marginal branch. He was admitted to the selective care unit. Dr. Oakley was consulted for medical management. Dr. Chaudhary was consulted for myocardial revascularization. The patient has a history of coronary artery disease with previous stent placement in 2001, hypertension, hyperlipidemia, DVT of the left lower extremity in 2016 and was prescribed Xarelto. He has a family history of premature coronary artery disease. He is a former cigarette smoker and quit in 1997. 09/05/2017 The patient was seen and examined at the bedside this morning by Dr. Oakley. He states he is feeling relatively well at this time. He denies shortness of breath. Denies chest pain or pressure. His Xarelto remains on hold at this time. He is scheduled for CABG tomorrow 09/06/2017. He denies nausea or vomiting at this time. Denies pain or discomfort. His vital signs have remained stable. Blood pressure this morning was 122/67. His heart rate is in the 50s. He is afebrile with a temperature of 97.8. Chest x-ray completed on 09/04/2017 is negative for an acute process. Bilateral carotid Doppler was completed on 03/04/2018 which revealed no hemodynamic significant stenosis of the bilateral carotid arteries. He denies any further concerns or complaints at this time. 09/06/2017 Patient seen and examined at the bedside in the intensive care unit by Dr. Oakley. He is awake and alert. He remains NPO. He is scheduled for CABG this morning with Dr. Chaudhary. Blood sugars are ranging 134-189. He is currently on sliding scale coverage and will transition to insulin drip post-op. Denies chest pain or pressure. Denies shortness of breath. Denies nausea or vomiting. Denies pain or discomfort. Vital signs remain stable. Blood pressure is 131/80. Heart rate remains in the 50s. He is afebrile. Objective - Vital Signs Vital signs: Vital Signs Temp 98.4 F 09/06/17 06:29 Pulse 58 L 09/06/17 06:29 Resp 18 09/06/17 06:29 BP 131/80 09/06/17 06:29 Pulse Ox 95 09/06/17 06:29 Intake & Output 09/05/17 09/06/17 09/06/17 18:59 06:59 18:59 Intake Total 300 470 33 Output Total 1375 2200 0 Balance -1075 -1730 33 Weight 105.6 kg 100.9 kg Intake: IV 50 100 33 Lactated Ringers 1,000 ml 50 0 @ 10 mls/hr IV .Q24H PRN Rx#:[id number] Oral 250 370 Output: Urine 1375 2200 0 Other: # Voids 2 ABP, PAP, CO, CI - Last Documented Arterial Blood Pressure 128/75 - Exam GENERAL: This is a 76-year-old male in no apparent distress at the time of examination. Pleasant and cooperative. HEENT: Head is atraumatic, normocephalic. Pupils are equal, round, and reactive to light. Sclerae anicteric. Conjunctivae are clear. Mucus membranes of the mouth are moist. Neck is supple. RESPIRATORY: Clear to ausculation. No wheezes, rales, or rhonchi. No use of accessory muscles. Patient maintaining oxygen saturation greater than 92%. No chest wall tenderness is noted on palpation or with deep breathing. CARDIOVASCULAR: Regular rate and rhythm. S1 and S2 noted. No systolic or diastolic murmur auscultated. No JVD noted. No S3 or S4 noted. GASTROINTESTINAL: No distention noted. Abdomen soft and round. Normal active bowel sounds auscultated X 4 quadrants. No pain or tenderness noted upon palpation. INTEGUMENTARY: No cyanosis. No jaundice. No rashes noted. No cellulitis noted. EXTREMITIES: 2+ peripheral pulses. No evidence of peripheral edema. No calf tenderness noted. NEUROLOGIC: Cranial nerves II-XII intact. PSYCHIATRIC: Awake, alert, and oriented X 3. Appropriate affect. Intact judgement and insight. - Labs CBC & Chem 7: 09/06/17 04:35 09/06/17 04:35 Labs: Abnormal Lab Results - Last 24 Hours (Table) 09/04/17 09/05/17 09/05/17 Range/Units 11:43 06:02 10:20 RBC (4.30-5.90) m/uL Plt Count (150-450) k/uL Glucose (74-99) mg/dL POC Glucose (mg/dL) 150 H (75-99) mg/dL Hemoglobin A1c 8.5 H (4.0-6.0) % Total Protein (6.3-8.2) g/dL Crossmatch See Detail 09/05/17 09/05/17 09/05/17 Range/Units 12:15 18:18 20:52 RBC (4.30-5.90) m/uL Plt Count (150-450) k/uL Glucose (74-99) mg/dL POC Glucose (mg/dL) 241 H 189 H 170 H (75-99) mg/dL Hemoglobin A1c (4.0-6.0) % Total Protein (6.3-8.2) g/dL Crossmatch 09/06/17 09/06/17 09/06/17 Range/Units 04:35 04:35 06:29 RBC 4.07 L (4.30-5.90) m/uL Plt Count 133 L (150-450) k/uL Glucose 127 H (74-99) mg/dL POC Glucose (mg/dL) 134 H (75-99) mg/dL Hemoglobin A1c (4.0-6.0) % Total Protein 6.1 L (6.3-8.2) g/dL Crossmatch 09/06/17 Range/Units 08:53 RBC (4.30-5.90) m/uL Plt Count (150-450) k/uL Glucose (74-99) mg/dL POC Glucose (mg/dL) 177 H (75-99) mg/dL Hemoglobin A1c (4.0-6.0) % Total Protein (6.3-8.2) g/dL Crossmatch Microbiology - Last 24 Hours (Table) 09/04/17 14:13 Nasal Screen MRSA/MSSA (AMANDO) - Final Nasopharyngeal Swab 09/04/17 15:20 Urine Culture - Final Urine,Clean Catch Assessment and Plan Plan: ASSESSMENT: Complaints of intermittent chest pain 3 months, s/p cardiac catheterization on 09/04/2017 revealing 60-70% stenosis of left main, 80% stenosis of mid LAD, 60- 70% left circumflex artery, and 70% disease of obtuse marginal branch Coronary artery disease with previous myocardial infarction and stent placement History of deep vein thrombosis of left lower extremity, maintained on long- term anticoagulation with Xarelto, currently on hold Diabetes mellitus, type II, hemoglobin A1c 8.5% Essential hypertension Hyperlipidemia Family history of premature coronary artery disease Osteoarthritis History of nicotine dependence, in remission, patient quit smoking cigarettes in 1997 Obesity: BMI 37.6 PLAN: -Continue management per cardiothoracic service -Patient scheduled for CABG today -Capillary blood glucose Accu-Cheks before meals and at bedtime -Continue novolog sliding scale AC/HS -NovoLog sliding scale coverage before meals and at bedtime -Initiate insulin drip after surgery per protocol -visual educator on consult secondary to CABG and DM -Home meds as appropriate -Monitor labs -GI/DVT prophylaxis -Monitor vital signs and address as appropriate -Further recommendations pending patient's course Nurse practitioner note has been reviewed by physician. Signing provider agrees with the documented findings, assessment, and plan of care.
[2017-09-06 10:35] LABS: Glucose,Whole Blood 213 mg/dL (75-99)
[2017-09-06 11:45] LABS: Glucose,Whole Blood 189 mg/dL (75-99)
[2017-09-06 12:03] LABS: Glucose,Whole Blood 267 mg/dL (75-99)
[2017-09-06 12:40] LABS: Glucose,Whole Blood 289 mg/dL (75-99)
[2017-09-06 13:11] LABS: Glucose,Whole Blood 281 mg/dL (75-99)
[2017-09-06 14:01] LABS: Glucose,Whole Blood 257 mg/dL (75-99)
[2017-09-06 14:27] LABS: Glucose,Whole Blood 211 mg/dL (75-99)
[2017-09-06] MEDS ORDERED: NOREPINEPHRIN 4 MG-0.9% NS PMX 4 MG/250 ML ML IV SCH (14:30)
[2017-09-06] MEDS ORDERED: Magnesium Replacement Protocol 1 EACH MISC MISCELLANE PRN (15:19)
[2017-09-06] MEDS ORDERED: Potassium Replacement Protocol 1 EACH MISC MISCELLANE PRN (15:19)
[2017-09-06] MEDS ORDERED: ONDANSETRON 4 MG/2 ML VIAL IVP PRN (15:19)
[2017-09-06] MEDS ORDERED: Phosphorus Replacement Protoco 1 EACH MISC MISCELLANE PRN (15:19)
[2017-09-06] MEDS ORDERED: BENZOCAINE/MENTHOL LOZENG 1 EACH LOZENGE MUCOUS MEM PRN (15:19)
[2017-09-06] MEDS ORDERED: MORPHINE SULFATE 2 MG/ML SYRINGE IVP PRN (15:19)
[2017-09-06] MEDS ORDERED: ALBUMIN HUMAN 5% 250 ML in EMPTY BAG 1 BAG IVPB PRN (15:19)
[2017-09-06] MEDS ORDERED: CALCIUM GLUCONATE 2,000 MG in SODIUM CHLORIDE 0.9% 100 ML IVPB PRN (15:19)
[2017-09-06] MEDS ORDERED: NITROGLYCERIN-D5W PMX 50 MG in DEXTROSE/WATER 1 250ML.BAG IV SCH (15:19)
[2017-09-06] MEDS ORDERED: METOCLOPRAMIDE 5 MG/ML 2 ML VIAL IVP PRN (15:19)
[2017-09-06 15:39] LABS: Glucose,Whole Blood 157 mg/dL (75-99)
--- NOTE | 2017-09-06 15:43 | XR ---
EXAMINATION TYPE: XR chest 1V portable DATE OF EXAM: 09/06/2017 COMPARISON: NONE HISTORY: 09/04/2017 TECHNIQUE: Single frontal view of the chest is obtained. FINDINGS: ET tube approximately 1 cm meter above the zoe. Mediastinal drain, [place]-Ricarda catheter, chest tube noted. NGT is suspected to be at the level the GE junction. There is no sizable pneumothorax. Bilateral small effusion and left basilar consolidation noted. Find ings suggest epicardial lead. Postsurgical changes noted. IMPRESSION: 1. Postsurgical changes. ET tube low in position approximately 1 cm above zoe. 2. NG tube is seen with the tip near the GE junction correlate for advancement of the NG tube. 3. Bilateral small effusion with left basilar consolidation.
[2017-09-06] MEDS: PROPOFOL 1,000 MG in EMPTY BAG 1 BAG IV SCH ×2 (15:45→18:26)
--- NOTE | 2017-09-06 15:45 | P.PN ---
Subjective Progress Note Date: 09/06/17 Principal diagnosis: Severe coronary artery disease This is a very pleasant 76-year-old gentleman who follows with Dr. Jarett Oakley as his primary care physician. He has a history of diabetes mellitus, hyperlipidemia, hypertension, colitis, BPH, osteoarthritis with multiple surgeries including bilateral knee replacements. He also states his right hip is needing to be replaced. He was here in September 2016 with a left leg DVT and he remains on Xarelto. He has a remote history of chronic tobacco dependence for approximately 30 years. He did however quit in 1997. Denies having any pulmonary symptoms. He's never been on inhalers or oxygen the outpatient setting. He had not been seen by a seafood specialist in the past. He does have a history of coronary artery disease with previous myocardial infarction and stent placement in 2001. Since that time he had been doing quite well from the cardiac standpoint. Recently he had noticed some chest discomfort while shoveling snow and was seen by Dr. Oakley and subsequently with cardiology and was brought in for an outpatient cardiac catheterization today. Xarelto was stopped on 09/01/2017. He was found to have heavily calcified coronary arteries. He had significant 60-70% distal left main disease, significant 80% mid LAD disease and moderate 60-70% disease in the left circumflex. The plan is for coronary artery bypass grafting within the next 24- 48 hours. He is seen today in consultation on the selective care unit. He is resting flat in bed. He is awake and alert in no acute distress. He denies any shortness of breath, cough or congestion. No chest discomfort currently stating he has not had any since starting isosorbide mononitrate. He remains hemodynamically stable. Maintaining good O2 saturations in the mid to upper 90s on room air. Patient was reevaluated today on 09/05/2017, doing well, relatively asymptomatic , Xarelto remains on hold, and the patient is scheduled to undergo myocardial revascularization tomorrow in a.m. Pulmonary-eng, no cough no wheezing no shortness of breath. Labs were reviewed, relatively normal electrolytes are normal CBC noted. Chest x-ray showed no acute process. Bedside PFT is pending. Patient was reevaluated today on 09/06/2017, patient just came back from surgery , he underwent myocardial revascularization earlier, and he is back in the ICU on mechanical ventilation. His vent settings are FiO2 of 100%, PEEP of 5, SIMV of 14 and tidal volume of 500. ABG is pending, chest x-ray showed postoperative changes, endotracheal tube is almost in the right mainstem bronchus, it is at the level of the zoe. Hence it would be pulled up about to see him from present placement. Labs from earlier today showed relatively normal CBC, normal electrolytes are normal renal profile. Patient is presently sedated, on mechanical ventilation. Objective - Vital Signs Vital signs: Vital Signs Temp 98.4 F 09/06/17 06:29 Pulse 58 L 09/06/17 06:29 Resp 18 09/06/17 06:29 BP 131/80 09/06/17 06:29 Pulse Ox 95 09/06/17 06:29 Intake & Output 09/05/17 09/06/17 09/06/17 18:59 06:59 18:59 Intake Total 300 470 493 Output Total 1375 2200 1720 Balance -1075 -1730 -1227 Weight 105.6 kg 100.9 kg Intake: IV 50 100 33 Lactated Ringers 1,000 ml 50 0 @ 10 mls/hr IV .Q24H PRN Rx#:[id number] Oral 250 370 Blood Product 460 Ffp 24 Cp2d Unit 250 [id number] Ffp 24 Pher Acda Cnt2 210 Unit [id number] Output: Urine 1375 2200 620 Estimated Blood Loss 1100 Other: # Voids 2 ABP, PAP, CO, CI - Last Documented Arterial Blood Pressure 128/75 - Exam GENERAL EXAM: Revealed a 76-year-old white male, sedated, on mechanical ventilation. Just came up to the ICU from the or. HEAD: Normocephalic. EYES: Normal reaction of pupils, equal size. NOSE: Clear with pink turbinates. THROAT: No erythema or exudates. Endotracheal tube seems to be intact. NECK: No masses, no JVD. CHEST: No chest wall deformity. LUNGS: Equal air entry with no crackles, wheeze, rhonchi or dullness. CVS: S1 and S2 normal with no audible murmur, regular rhythm. ABDOMEN: No hepatosplenomegaly, normal bowel sounds, no guarding or rigidity. SPINE: No scoliosis or deformity SKIN: No rashes CENTRAL NERVOUS SYSTEM: Cannot be assessed, patient is fully sedated EXTREMITIES: There is no peripheral edema. No clubbing, no cyanosis. Peripheral pulses are intact. - Labs CBC & Chem 7: 09/06/17 04:35 09/06/17 04:35 Labs: Abnormal Lab Results - Last 24 Hours (Table) 09/04/17 09/05/17 09/05/17 Range/Units 11:43 06:02 18:18 RBC (4.30-5.90) m/uL Plt Count (150-450) k/uL Glucose (74-99) mg/dL POC Glucose (mg/dL) 189 H (75-99) mg/dL Hemoglobin A1c 8.5 H (4.0-6.0) % Total Protein (6.3-8.2) g/dL Crossmatch See Detail 09/05/17 09/06/17 09/06/17 Range/Units 20:52 04:35 04:35 RBC 4.07 L (4.30-5.90) m/uL Plt Count 133 L (150-450) k/uL Glucose 127 H (74-99) mg/dL POC Glucose (mg/dL) 170 H (75-99) mg/dL Hemoglobin A1c (4.0-6.0) % Total Protein 6.1 L (6.3-8.2) g/dL Crossmatch 09/06/17 09/06/17 09/06/17 Range/Units 06:29 08:53 10:28 RBC (4.30-5.90) m/uL Plt Count (150-450) k/uL Glucose (74-99) mg/dL POC Glucose (mg/dL) 134 H 177 H 213 H (75-99) mg/dL Hemoglobin A1c (4.0-6.0) % Total Protein (6.3-8.2) g/dL Crossmatch 09/06/17 09/06/17 09/06/17 Range/Units 11:27 12:00 12:36 RBC (4.30-5.90) m/uL Plt Count (150-450) k/uL Glucose (74-99) mg/dL POC Glucose (mg/dL) 189 H 267 H 289 H (75-99) mg/dL Hemoglobin A1c (4.0-6.0) % Total Protein (6.3-8.2) g/dL Crossmatch 01/08/1209/06/17 09/06/17 Range/Units 13:07 13:42 14:24 RBC (4.30-5.90) m/uL Plt Count (150-450) k/uL Glucose (74-99) mg/dL POC Glucose (mg/dL) 281 H 257 H 211 H (75-99) mg/dL Hemoglobin A1c (4.0-6.0) % Total Protein (6.3-8.2) g/dL Crossmatch 09/06/17 Range/Units 15:37 RBC (4.30-5.90) m/uL Plt Count (150-450) k/uL Glucose (74-99) mg/dL POC Glucose (mg/dL) 157 H (75-99) mg/dL Hemoglobin A1c (4.0-6.0) % Total Protein (6.3-8.2) g/dL Crossmatch Microbiology - Last 24 Hours (Table) 09/04/17 14:13 Nasal Screen MRSA/MSSA (AMANDO) - Final Nasopharyngeal Swab 09/04/17 15:20 Urine Culture - Final Urine,Clean Catch Assessment and Plan Assessment: #1 status post CABG for triple vessel coronary artery disease, presently on mechanical ventilation. Vent settings will be adjusted according to the ABG, and endotracheal tube will be adjusted for better placement. Postoperative day #0. #2 Exertional chest pain in a patient found to have significant coronary artery disease. Cardiac catheterization today revealed heavily calcified coronary arteries. He had significant 60-70% distal left main disease, significant 80% mid LAD disease and moderate 60-70% disease in the left circumflex. The plan is for coronary artery bypass grafting within the next 24-48 hours. #3 History of coronary artery disease with previous myocardial infarction and stent placement in 2001. 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 Held since 09/01/2017. #5 Remote history of approximately 30 years at 1 pack per day chronic tobacco dependence, however quit in 1997. #6 Diabetes mellitus, type II. #7 Hypertension. #7 Hyperlipidemia. # 9 Benign prostatic hypertrophy. # 10 History of colitis. # 11 Osteoarthritis with multiple orthopedic surgeries including bilateral knee replacements and cervical spine surgery. Eventually needing a right hip replacement as well. Recommendation: Continue present supportive care measures, ventilator settings will be adjusted, endotracheal tube placement will be adjusted, patient will be likely extubated in the next few hours. Wouldn't placed on the protocol for weaning. Time with Patient: Greater than 30
[2017-09-06] MEDS: LACTATED RINGERS 1,000 ML IV SCH (15:53)
[2017-09-06 16:06] LABS: ALT 31 U/L (21-72); AST 47 U/L (17-59); Alkaline Phosphatase 21 U/L (38-126); Anion Gap 8 mmol/L; Blood Urea Nitrogen 11 mg/dL (9-20); Calcium 8.3 mg/dL (8.4-10.2); Carbon Dioxide 25 mmol/L (22-30); Chloride 107 mmol/L (98-107); Glucose 154 mg/dL (74-99); Magnesium 2.1 mg/dL (1.6-2.3); Potassium 4.3 mmol/L (3.5-5.1); Sodium 140 mmol/L (137-145); Total Bilirubin 1.2 mg/dL (0.2-1.3); Total Protein 4.6 g/dL (6.3-8.2)
[2017-09-06 16:08] LABS: INR 1.3 (<1.2); Partial Thromboplastin Time 27.4 sec (22.0-30.0); Prothrombin Time 12.6 sec (9.0-12.0)
[2017-09-06] MEDS: IPRATROPIUM-ALBUTEROL 3 ML NEB INHALATION SCH ×2 (16:08→19:19)
[2017-09-06 16:11] LABS: HCT 30.4 % (39.0-53.0); MCH 33.3 pg (25.0-35.0); Macrocytosis Slight; RBC 3.01 m/uL (4.30-5.90); RDW 13.3 % (11.5-15.5)
[2017-09-06 16:24] LABS: Glucose,Whole Blood 139 mg/dL (75-99)
[2017-09-06 16:51] LABS: ABG Base Excess -0.9 mmol/L; ABG HCO3 25 mmol/L (21-25); ABG PCO2 50 mmHg (35-45); ABG PH 7.31 (7.35-7.45); ABG PO2 131 mmHg (83-108); ABG TCO2 26 mmol/L (19-24)
[2017-09-06] MEDS: ceFAZolin IN SWFI 2 GM/20 ML SYRINGE IVP SCH ×2 (16:57→23:32)
[2017-09-06] MEDS: INSULIN REGULAR 100 UNIT in SODIUM CHLORIDE 0.9% 100 ML IV SCH ×2 (16:57→20:10)
[2017-09-06 17:01] LABS: Glucose,Whole Blood 137 mg/dL (75-99)
[2017-09-06] MEDS: ACETAMINOPHEN IV (For NPO) 1,000 MG in EMPTY BAG 1 BAG IVPB SCH ×2 (17:02→23:31)
[2017-09-06 17:51] LABS: Band Neutrophils % 6 %; Monocytes # (M) 0.24 k/uL (0-1.0); Neutrophils % (M) 73 %; Nucleated Red Blood Cells 0 /100 WBC (0-0); Polychromasia Present; Total Cells Counted 100
[2017-09-06 17:52] LABS: Platelet Count 75 k/uL (150-450)
[2017-09-06 18:01] LABS: Glucose,Whole Blood 159 mg/dL (75-99)
[2017-09-06 18:16] LABS: HCT 33.4 % (39.0-53.0); HGB 10.8 gm/dL (13.0-17.5); MCH 32.9 pg (25.0-35.0); MCHC 32.2 g/dL (31.0-37.0); MCV 102.4 fL (80.0-100.0); Macrocytosis Slight; Mean Platelet Volume 8.5; RBC 3.26 m/uL (4.30-5.90); RDW 14.3 % (11.5-15.5); WBC 5.6 k/uL (3.8-10.6)
[2017-09-06 18:53] LABS: Band Neutrophils % 4 %; Lymphocytes # (M) 0.78 k/uL (1.0-4.8); Monocytes # (M) 0.22 k/uL (0-1.0); Neutrophils % (M) 78 %; Nucleated Red Blood Cells 0 /100 WBC (0-0); Total Cells Counted 100
[2017-09-06 18:54] LABS: Platelet Count 84 k/uL (150-450); Toxic Vacuolation Present
[2017-09-06 18:57] LABS: Glucose,Whole Blood 127 mg/dL (75-99)
[2017-09-06 20:06] LABS: Glucose,Whole Blood 167 mg/dL (75-99)
[2017-09-06] MEDS: MUPIROCIN 2% OINT 22 GM TUBE NASAL SCH (20:12)
--- NOTE | 2017-09-06 20:44 | OP ---
OPERATIVE REPORT DATE OF SERVICE: 09/06/2017 PREOPERATIVE DIAGNOSIS: Coronary artery disease. POSTOPERATIVE DIAGNOSIS: Coronary artery disease. PROCEDURES: 1. Coronary bypass grafting x3 vessels (left internal mammary artery to left anterior descending artery, saphenous vein graft to obtuse marginal artery, saphenous vein graft to posterior descending artery). 2. Endoscopic vein harvest, right greater saphenous vein. 3. Epiaortic ultrasound. 4. Transesophageal echocardiogram. SURGEON: Murali Chaudhary MD ASSISTANTS: 1. WILLOW Vu. 2. WILLOW Farmer. ANESTHESIA: General. SPECIMENS: None. COMPLICATIONS: None. INDICATION: The patient is a 76-year-old male with a past medical history significant for diabetes mellitus, hyperlipidemia, hypertension, obesity, coronary artery disease and DVT who presented to the hospital for an elective cardiac catheterization secondary to intermittent chest pain. He was found to have multivessel coronary disease. A coronary artery bypass was recommended. The risks, benefits and alternatives to this procedure were discussed with the patient. All questions were answered. Consent was obtained. FINDINGS: The left internal mammary artery was a good conduit with brisk flow. The saphenous vein was a good conduit. The LAD measured 1.3 mm. The OM measured 1.3 mm. The PDA measured 1.0 mm. The diagonal artery contained significant calcific disease and was too small for bypass. PROCEDURE IN DETAIL: The patient was taken to the operating room, placed supine on the operating room table. After induction of general anesthesia he was prepped and draped in the usual sterile fashion. Preoperative transesophageal echocardiogram revealed normal ejection fraction with trace mitral regurgitation. A median sternotomy was performed. The left internal mammary artery was harvested in standard fashion, taking care to clip all branches. Intravenous heparin was administered and the vessel was dissected distally, revealing brisk flow. Of note, the patient did have some resistance to heparin and his ACT did not increase despite increasing doses of heparin. For this reason, 2 units of FFP were administered, and the patient's ACT was greater than 600 upon initiation of bypass. Simultaneously greater saphenous vein was harvested from the right lower extremity. All this was performed in an endoscopic fashion. All branches were tied. The vein was a good conduit. A pericardial cradle was created. The ascending aorta was palpated. There was no significant calcific disease noted. Epiaortic ultrasound was then performed to the ascending aorta. Again no calcific disease noted. There was some atheromatous disease identified. An arterial cannula was placed in the distal ascending aorta. A venous cannula was placed through the right atrial appendage directed into the IVC. Both antegrade and retrograde catheters were placed as well. The patient was placed on cardiopulmonary bypass with good decompression of the heart. The aortic crossclamp was applied. Cold blood potassium cardioplegia was delivered in both antegrade and retrograde fashion to achieve arrest of the heart. Of note, cardioplegia was delivered every 15 to 20 minutes while the patient remained under crossclamp. We began by inspecting the inferior wall. The posterior descending artery was identified. It branched off the distal circumflex artery. It was dissected free and I felt it was amenable to bypass. A small arteriotomy was created. This vessel accepted a 1 mm probe. Using the saphenous vein in a reverse fashion, an end-to-side anastomosis was created. This was performed using a running 7-0 Prolene suture. The graft was hemostatic and had good flow. Next, the lateral wall was inspected. The obtuse marginal artery was identified. The larger of the 2 branches was chosen. A small arteriotomy was created. This vessel accepted a 1 mm probe. Using saphenous vein in a reverse fashion, an end-to-side anastomosis was created. This was performed using running 7-0 Prolene suture. The graft was hemostatic and had good flow. Next, the anterior wall was identified. The diagonal artery was inspected. It was dissected free. It contained diffuse calcific stuttering plaque. Distally it was soft but too small for bypass. I elected not to bypass this vessel. Finally LAD was identified. In its mid to distal region, a soft spot was identified. Of note, proximally it contained a significant amount of stuttering calcific plaque. An arteriotomy was created. This vessel accepted a 1 mm probe. Using the left internal mammary artery, an end-to-side anastomosis was created. This was performed using running 8-0 Prolene suture. The graft was hemostatic. The mammary pedicle was then tacked onto the anterior surface of the heart. Attention was then turned to the proximal anastomoses. These were performed in an end- to-side fashion using running 6-0 Prolene sutures. One liter of warm blood was delivered in retrograde fashion. Both lidocaine and magnesium were administered as well. The aortic crossclamp was removed. The grafts were denies-aired in standard fashion. The distal anastomoses were inspected and appeared to be hemostatic. The retrograde catheter was removed. Temporary atrial and ventricular wires were placed and brought through the skin. We began to wean the patient off bypass. Of note , he remained somewhat hypotensive despite escalating doses of pressor support. We then came off bypass, and with the administration of levophed and epinephrine , his pressure improved. He was eventually weaned off these pressors. Follow-up transesophageal echocardiogram revealed a normal ejection fraction with all su of the left ventricle moving well. There remained trace mitral regurgitation. Protamine was administered. There were no adverse reactions. The mediastinum was copiously irrigated with warm saline solution. All surgical sites were again inspected and appeared to be hemostatic. Soft tissues were reapproximated of the ascending aorta as well as of the apex of the heart. A straight 32-[place] chest tube was placed and directed into the left pleural space. Two additional straight 32-[place] chest tubes were placed and directed into the mediastinum. Due to the patient's obesity, I chose to close the sternum with Lashmeet cables. These were placed in a [id number] fashion and tightened until the sternum was well approximated. The remainder of the wound was closed in layers. A sterile dressing was applied. Of note, the patient did leave the room on low-dose Levophed. He appeared to tolerate the procedure well. There were no immediate complications. He returned to the CCU in critical but stable condition. MMANNETTE / KRYSTYNAN: [id number] / MTDD
[2017-09-06 21:10] LABS: Glucose,Whole Blood 170 mg/dL (75-99)
[2017-09-06 21:28] LABS: ABG Base Excess 0.5 mmol/L; ABG HCO3 24 mmol/L (21-25); ABG PCO2 36 mmHg (35-45); ABG PH 7.44 (7.35-7.45); ABG PO2 82 mmHg (83-108); ABG TCO2 25 mmol/L (19-24)
[2017-09-06] MEDS: HEPARIN SODIUM,PORCINE 5,000 UNIT/ML 1 ML VIAL SQ SCH (22:19)
[2017-09-06 22:20] LABS: Glucose,Whole Blood 164 mg/dL (75-99)
[2017-09-06 23:18] LABS: Glucose,Whole Blood 146 mg/dL (75-99)
[2017-09-07 00:07] LABS: Glucose,Whole Blood 136 mg/dL (75-99)
[2017-09-07 01:18] LABS: Glucose,Whole Blood 136 mg/dL (75-99)
[2017-09-07 02:30] LABS: Glucose,Whole Blood 127 mg/dL (75-99)
[2017-09-07 04:06] LABS: Glucose,Whole Blood 110 mg/dL (75-99)
[2017-09-07 05:06] LABS: Glucose,Whole Blood 110 mg/dL (75-99)
[2017-09-07 05:14] LABS: Glucose,Whole Blood 116 mg/dL (75-99)
[2017-09-07 05:39] LABS: Basophils % (A) 0 %; Eosinophils % (A) 0 %; HCT 31.2 % (39.0-53.0); Lymphocytes # (A) 0.7 k/uL (1.0-4.8); Lymphocytes % (A) 9 %; MCH 33.1 pg (25.0-35.0); MCHC 32.2 g/dL (31.0-37.0); MCV 102.8 fL (80.0-100.0); Macrocytosis Slight; Mean Platelet Volume 8.3; Monocytes # (A) 0.6 k/uL (0-1.0); Monocytes % (A) 9 %; Neutrophils # (A) 5.5 k/uL (1.3-7.7); Neutrophils % (A) 79 %; RBC 3.04 m/uL (4.30-5.90); RDW 14.4 % (11.5-15.5); WBC 6.9 k/uL (3.8-10.6)
[2017-09-07 05:42] LABS: Platelet Count 86 k/uL (150-450)
[2017-09-07 05:45] LABS: Ionized Calcium 4.7 mg/dL (4.5-5.3)
[2017-09-07 05:46] LABS: INR 1.2 (<1.2); Prothrombin Time 11.6 sec (9.0-12.0)
[2017-09-07 05:57] LABS: ALT 41 U/L (21-72); AST 57 U/L (17-59); Alkaline Phosphatase 26 U/L (38-126); Anion Gap 6 mmol/L; Blood Urea Nitrogen 13 mg/dL (9-20); Calcium 8.3 mg/dL (8.4-10.2); Carbon Dioxide 27 mmol/L (22-30); Chloride 105 mmol/L (98-107); Glucose 111 mg/dL (74-99); Magnesium 2.1 mg/dL (1.6-2.3); Potassium 4.2 mmol/L (3.5-5.1); Sodium 138 mmol/L (137-145); Total Bilirubin 1.1 mg/dL (0.2-1.3); Total Protein 4.7 g/dL (6.3-8.2)
[2017-09-07 06:07] LABS: Glucose,Whole Blood 124 mg/dL (75-99)
--- NOTE | 2017-09-07 06:29 | XR ---
EXAMINATION TYPE: XR chest 1V portable DATE OF EXAM: 09/07/2017 HISTORY: Post Operative Cardiac Surgery. REFERENCE: Previous study dated 09/06/2017. FINDINGS: There has been a midline sternotomy. The patient has been extubated. The patient is NG tube has been removed. A [place]-Ricarda catheter remains in place via a right internal jugular approach. Its tip is in the right main pulmonary artery. There is a left pleural drain in place. The heart is enlarged. There is left basilar airspace disease. There is platelike atelectasis of the right lung base. There is a left-sided effusion. There has not been a significant change in the appea cecilia of the chest. IMPRESSION: CONTINUING POSTOPERATIVE CHANGE.
[2017-09-07 07:05] LABS: Glucose,Whole Blood 130 mg/dL (75-99)
[2017-09-07] MEDS: CLEVIDIPINE BUTYRATE 25 MG in EMPTY BAG 1 BAG IV SCH ×2 (07:30→14:23)
[2017-09-07] MEDS: ACETAMINOPHEN IV (For NPO) 1,000 MG in EMPTY BAG 1 BAG IVPB SCH ×3 (07:45→18:17)
[2017-09-07 08:07] LABS: Glucose,Whole Blood 135 mg/dL (75-99)
[2017-09-07] MEDS: METOPROLOL TARTRATE 12.5 MG TAB PO SCH ×2 (08:26→21:23)
[2017-09-07] MEDS: HEPARIN SODIUM,PORCINE 5,000 UNIT/ML 1 ML VIAL SQ SCH ×3 (08:27→23:27)
[2017-09-07] MEDS: MUPIROCIN 2% OINT 22 GM TUBE NASAL SCH ×2 (08:27→21:22)
[2017-09-07] MEDS: ceFAZolin IN SWFI 2 GM/20 ML SYRINGE IVP SCH (08:27)
[2017-09-07] MEDS: ATORVASTATIN 40 MG TAB PO SCH (08:28)
--- NOTE | 2017-09-07 08:33 | P.PN ---
Subjective Progress Note Date: 09/07/17 Principal diagnosis: Coronary artery disease with left main disease. Previous medical history of myocardial infarction with stent placement in 2001, hypertension, diabetes mellitus type 2 with current hemoglobin A1c 8.5%, hyperlipidemia, DVT of the left lower extremity in September 2016, previous tobacco dependence, family history of premature coronary artery disease with father from myocardial infarction at 49 years old, multiple orthopedic surgeries. POD #1 urgent coronary artery bypass grafting 3 vessels, left internal mammary artery to left anterior descending artery, reverse saphenous vein graft to the obtuse marginal artery, reverse saphenous vein graft to the posterior descending artery, endoscopic vein harvest of the right greater saphenous vein, epi-aortic ultrasound, intraoperative transesophageal echocardiogram. Patient's currently sitting up in bed in no acute distress. Complains of sternal pain with deep inspiration and coughing. Was successfully extubated last night and 21:35. Currently on no pressors or inotropes. Objective - Vital Signs Vital signs: Vital Signs Temp 98.4 F 09/06/17 06:29 Pulse 86 09/07/17 07:30 Resp 35 H 09/07/17 07:30 BP 131/80 09/06/17 06:29 Pulse Ox 93 L 09/07/17 07:30 Intake & Output 09/06/17 09/07/17 09/07/17 18:59 06:59 18:59 Intake Total 814.886 781.572 11.66 Output Total 2405 894 90 Balance -1590.114 -112.428 -78.34 Weight 105 kg Intake: IV 233 585.5 9 0.9 FOR CO 50 190 0.9 NaCl for Pressure Bag 99 9 ACETAMINOPHEN IV (For NPO 100 ) 1,000 mg In Empty Bag 1 bag @ 400 mls/hr IVPB Q6HR ASHLEY Rx#:[id number] Lactated Ringers 1,000 ml 150 150 @ 10 mls/hr IV .Q24H PRN Rx#:[id number] Nitroglycerin-D5w Pmx 50 16.5 mg In Dextrose/Water 1 250ml.bag @ 5 MCG/MIN 1.5 mls/hr IV .Q24H PRN Rx#: [id number] ceFAZolin 2 gm In Sodium 30 Chloride 0.9% 30 ml @ 60 mls/hr IVPB ONCE PRN Rx#: [id number] Intake, IV Titration 121.886 146.072 2.66 Amount Insulin Regular 100 unit 1.586 33.672 2.66 In Sodium Chloride 0.9% 100 ml @ Per Protocol IV .Q0M ASHLEY Rx#:[id number] Lactated Ringers 1,000 ml 50 50 @ 50 mls/hr IV .Q20H ASHLEY Rx#:[id number] Propofol 1,000 mg In 70.3 62.4 Empty Bag 1 bag @ Titrate IV .Q0M ASHLEY Rx#: [id number] Oral 50 Blood Product 460 Ffp 24 Cp2d Unit 250 [id number] Ffp 24 Pher Acda Cnt2 210 Unit [id number] Output: Chest Tube Drainage 100 265 10 Bilateral Mediastinal 20 226 10 Left Lateral Chest 80 39 0 Drainage 110 30 Right Calf 110 30 Urine 1095 599 80 Estimated Blood Loss 1100 Other: Voiding Method Indwelling Catheter Indwelling Catheter ABP, PAP, CO, CI - Last Documented Arterial Blood Pressure 149/49 Pulmonary Artery Pressure 36/14 Cardiac Output 7.9 Cardiac Index 3.8 - Constitutional General appearance: Present: cooperative, no acute distress, obese - Respiratory Details: Lungs sounds diminished bilaterally. Respirations even, nonlabored. Currently on 4 L nasal cannula with oxygen saturation 98%. Able to achieve 1000 mL on his incentive spirometry. Mediastinal chest tube to -20 cm wall suction, 130 mL serosanguineous drainage overnight, 350 mL since surgery. Left pleural chest tube to -20 cm wall suction, 15 mL serosanguineous drainage overnight, 40 mL since surgery. No air leaks present. Chest x-ray reviewed, atelectasis present, left pleural effusion present. - Cardiovascular Details: S1, S2 present. Regular rate and rhythm, sinus rhythm on telemetry. Sternum stable. A/V epicardial pacemaker wires present, connected to generator, VVI mode with backup rate 50 bpm. Palpable peripheral pulses bilaterally. No edema present. Right internal jugular Cordis/Orting, left radial arterial line present. Last CO/CI 7.9/3.6 on no inotropes. No calf pain or tenderness noted , however patient does complain of slight pain around his KYLER site. Heart hugger in place with patient demonstrating appropriate use. Ramon wraps present to bilateral lower extremities from toes to groin. SCD present to left lower extremity. - Gastrointestinal Gastrointestinal Comment(s): Abdomen soft, nontender, nondistended. Hypoactive bowel sounds present 4 quadrants. Tolerating clear liquids. - Genitourinary Genitourinary Comment(s): Ta present draining clear, yellow urine. Output 40-50 mL per hour overnight. - Integumentary Integumentary Comment(s): Sternal incision well approximated and covered with dry intact dressing. Right lower extremity EVH site well approximated with KYLER drain present, minimal serosanguineous drainage overnight. Skin warm, dry, pink with evidence of good perfusion. - Neurologic Neurologic: Present: CNII-XII intact - Musculoskeletal Musculoskeletal: Present: strength equal bilaterally - Psychiatric Psychiatric: Present: A&O x's 3, appropriate affect, intact judgment & insight - Allied health notes Allied health notes reviewed: nursing - Labs CBC & Chem 7: 09/07/17 05:10 09/07/17 05:10 Labs: Abnormal Lab Results - Last 24 Hours (Table) 09/04/17 09/06/17 09/06/17 Range/Units 11:43 08:53 10:28 RBC (4.30-5.90) m/uL Hgb (13.0-17.5) gm/dL Hct (39.0-53.0) % MCV (80.0-100.0) fL Plt Count (150-450) k/uL Lymphocytes # (1.0-4.8) k/uL Lymphocytes # (Manual) (1.0-4.8) k/uL PT (9.0-12.0) sec INR (<1.2) ABG pH (7.35-7.45) ABG pCO2 (35-45) mmHg ABG pO2 (83-108) mmHg ABG Total CO2 (19-24) mmol/L ABG O2 Saturation (94-97) % Glucose (74-99) mg/dL POC Glucose (mg/dL) 177 H 213 H (75-99) mg/dL Calcium (8.4-10.2) mg/dL Alkaline Phosphatase (38-126) U/L Total Protein (6.3-8.2) g/dL Albumin (3.5-5.0) g/dL Crossmatch See Detail 09/06/17 09/06/17 09/06/17 Range/Units 11:27 12:00 12:36 RBC (4.30-5.90) m/uL Hgb (13.0-17.5) gm/dL Hct (39.0-53.0) % MCV (80.0-100.0) fL Plt Count (150-450) k/uL Lymphocytes # (1.0-4.8) k/uL Lymphocytes # (Manual) (1.0-4.8) k/uL PT (9.0-12.0) sec INR (<1.2) ABG pH (7.35-7.45) ABG pCO2 (35-45) mmHg ABG pO2 (83-108) mmHg ABG Total CO2 (19-24) mmol/L ABG O2 Saturation (94-97) % Glucose (74-99) mg/dL POC Glucose (mg/dL) 189 H 267 H 289 H (75-99) mg/dL Calcium (8.4-10.2) mg/dL Alkaline Phosphatase (38-126) U/L Total Protein (6.3-8.2) g/dL Albumin (3.5-5.0) g/dL Crossmatch 09/06/17 09/06/17 09/06/17 Range/Units 13:07 13:42 14:24 RBC (4.30-5.90) m/uL Hgb (13.0-17.5) gm/dL Hct (39.0-53.0) % MCV (80.0-100.0) fL Plt Count (150-450) k/uL Lymphocytes # (1.0-4.8) k/uL Lymphocytes # (Manual) (1.0-4.8) k/uL PT (9.0-12.0) sec INR (<1.2) ABG pH (7.35-7.45) ABG pCO2 (35-45) mmHg ABG pO2 (83-108) mmHg ABG Total CO2 (19-24) mmol/L ABG O2 Saturation (94-97) % Glucose (74-99) mg/dL POC Glucose (mg/dL) 281 H 257 H 211 H (75-99) mg/dL Calcium (8.4-10.2) mg/dL Alkaline Phosphatase (38-126) U/L Total Protein (6.3-8.2) g/dL Albumin (3.5-5.0) g/dL Crossmatch 09/06/17 09/06/17 09/06/17 Range/Units 15:30 15:30 15:30 RBC 3.01 L (4.30-5.90) m/uL Hgb 10.0 L D (13.0-17.5) gm/dL Hct 30.4 L (39.0-53.0) % MCV 101.0 H (80.0-100.0) fL Plt Count 75 L (150-450) k/uL Lymphocytes # (1.0-4.8) k/uL Lymphocytes # (Manual) 0.60 L (1.0-4.8) k/uL PT 12.6 H (9.0-12.0) sec INR 1.3 H (<1.2) ABG pH (7.35-7.45) ABG pCO2 (35-45) mmHg ABG pO2 (83-108) mmHg ABG Total CO2 (19-24) mmol/L ABG O2 Saturation (94-97) % Glucose 154 H (74-99) mg/dL POC Glucose (mg/dL) (75-99) mg/dL Calcium 8.3 L (8.4-10.2) mg/dL Alkaline Phosphatase 21 L (38-126) U/L Total Protein 4.6 L (6.3-8.2) g/dL Albumin 3.0 L (3.5-5.0) g/dL Crossmatch 09/06/17 09/06/17 09/06/17 Range/Units 15:37 16:04 16:08 RBC (4.30-5.90) m/uL Hgb (13.0-17.5) gm/dL Hct (39.0-53.0) % MCV (80.0-100.0) fL Plt Count (150-450) k/uL Lymphocytes # (1.0-4.8) k/uL Lymphocytes # (Manual) (1.0-4.8) k/uL PT (9.0-12.0) sec INR (<1.2) ABG pH 7.31 L (7.35-7.45) ABG pCO2 50 H (35-45) mmHg ABG pO2 131 H (83-108) mmHg ABG Total CO2 26 H (19-24) mmol/L ABG O2 Saturation 99.0 H (94-97) % Glucose (74-99) mg/dL POC Glucose (mg/dL) 157 H 139 H (75-99) mg/dL Calcium (8.4-10.2) mg/dL Alkaline Phosphatase (38-126) U/L Total Protein (6.3-8.2) g/dL Albumin (3.5-5.0) g/dL Crossmatch 09/06/17 09/06/17 09/06/17 Range/Units 16:59 17:59 18:00 RBC 3.26 L (4.30-5.90) m/uL Hgb 10.8 L (13.0-17.5) gm/dL Hct 33.4 L (39.0-53.0) % MCV 102.4 H (80.0-100.0) fL Plt Count 84 L (150-450) k/uL Lymphocytes # (1.0-4.8) k/uL Lymphocytes # (Manual) 0.78 L (1.0-4.8) k/uL PT (9.0-12.0) sec INR (<1.2) ABG pH (7.35-7.45) ABG pCO2 (35-45) mmHg ABG pO2 (83-108) mmHg ABG Total CO2 (19-24) mmol/L ABG O2 Saturation (94-97) % Glucose (74-99) mg/dL POC Glucose (mg/dL) 137 H 159 H (75-99) mg/dL Calcium (8.4-10.2) mg/dL Alkaline Phosphatase (38-126) U/L Total Protein (6.3-8.2) g/dL Albumin (3.5-5.0) g/dL Crossmatch 09/06/17 09/06/17 09/06/17 Range/Units 18:55 20:03 21:09 RBC (4.30-5.90) m/uL Hgb (13.0-17.5) gm/dL Hct (39.0-53.0) % MCV (80.0-100.0) fL Plt Count (150-450) k/uL Lymphocytes # (1.0-4.8) k/uL Lymphocytes # (Manual) (1.0-4.8) k/uL PT (9.0-12.0) sec INR (<1.2) ABG pH (7.35-7.45) ABG pCO2 (35-45) mmHg ABG pO2 (83-108) mmHg ABG Total CO2 (19-24) mmol/L ABG O2 Saturation (94-97) % Glucose (74-99) mg/dL POC Glucose (mg/dL) 127 H 167 H 170 H (75-99) mg/dL Calcium (8.4-10.2) mg/dL Alkaline Phosphatase (38-126) U/L Total Protein (6.3-8.2) g/dL Albumin (3.5-5.0) g/dL Crossmatch 09/06/17 09/06/17 09/06/17 Range/Units 21:27 22:13 23:15 RBC (4.30-5.90) m/uL Hgb (13.0-17.5) gm/dL Hct (39.0-53.0) % MCV (80.0-100.0) fL Plt Count (150-450) k/uL Lymphocytes # (1.0-4.8) k/uL Lymphocytes # (Manual) (1.0-4.8) k/uL PT (9.0-12.0) sec INR (<1.2) ABG pH (7.35-7.45) ABG pCO2 (35-45) mmHg ABG pO2 82 L (83-108) mmHg ABG Total CO2 25 H (19-24) mmol/L ABG O2 Saturation (94-97) % Glucose (74-99) mg/dL POC Glucose (mg/dL) 164 H 146 H (75-99) mg/dL Calcium (8.4-10.2) mg/dL Alkaline Phosphatase (38-126) U/L Total Protein (6.3-8.2) g/dL Albumin (3.5-5.0) g/dL Crossmatch 09/07/17 09/07/17 09/07/17 Range/Units 00:05 01:15 02:28 RBC (4.30-5.90) m/uL Hgb (13.0-17.5) gm/dL Hct (39.0-53.0) % MCV (80.0-100.0) fL Plt Count (150-450) k/uL Lymphocytes # (1.0-4.8) k/uL Lymphocytes # (Manual) (1.0-4.8) k/uL PT (9.0-12.0) sec INR (<1.2) ABG pH (7.35-7.45) ABG pCO2 (35-45) mmHg ABG pO2 (83-108) mmHg ABG Total CO2 (19-24) mmol/L ABG O2 Saturation (94-97) % Glucose (74-99) mg/dL POC Glucose (mg/dL) 136 H 136 H 127 H (75-99) mg/dL Calcium (8.4-10.2) mg/dL Alkaline Phosphatase (38-126) U/L Total Protein (6.3-8.2) g/dL Albumin (3.5-5.0) g/dL Crossmatch 09/07/17 09/07/17 09/07/17 Range/Units 04:05 05:04 05:10 RBC 3.04 L (4.30-5.90) m/uL Hgb 10.0 L (13.0-17.5) gm/dL Hct 31.2 L (39.0-53.0) % MCV 102.8 H (80.0-100.0) fL Plt Count 86 L (150-450) k/uL Lymphocytes # 0.7 L (1.0-4.8) k/uL Lymphocytes # (Manual) (1.0-4.8) k/uL PT (9.0-12.0) sec INR (<1.2) ABG pH (7.35-7.45) ABG pCO2 (35-45) mmHg ABG pO2 (83-108) mmHg ABG Total CO2 (19-24) mmol/L ABG O2 Saturation (94-97) % Glucose (74-99) mg/dL POC Glucose (mg/dL) 110 H 110 H (75-99) mg/dL Calcium (8.4-10.2) mg/dL Alkaline Phosphatase (38-126) U/L Total Protein (6.3-8.2) g/dL Albumin (3.5-5.0) g/dL Crossmatch 09/07/17 09/07/17 09/07/17 Range/Units 05:10 05:10 05:12 RBC (4.30-5.90) m/uL Hgb (13.0-17.5) gm/dL Hct (39.0-53.0) % MCV (80.0-100.0) fL Plt Count (150-450) k/uL Lymphocytes # (1.0-4.8) k/uL Lymphocytes # (Manual) (1.0-4.8) k/uL PT (9.0-12.0) sec INR 1.2 H (<1.2) ABG pH (7.35-7.45) ABG pCO2 (35-45) mmHg ABG pO2 (83-108) mmHg ABG Total CO2 (19-24) mmol/L ABG O2 Saturation (94-97) % Glucose 111 H (74-99) mg/dL POC Glucose (mg/dL) 116 H (75-99) mg/dL Calcium 8.3 L (8.4-10.2) mg/dL Alkaline Phosphatase 26 L (38-126) U/L Total Protein 4.7 L (6.3-8.2) g/dL Albumin 3.0 L (3.5-5.0) g/dL Crossmatch 09/07/17 09/07/17 09/07/17 Range/Units 06:06 07:03 08:05 RBC (4.30-5.90) m/uL Hgb (13.0-17.5) gm/dL Hct (39.0-53.0) % MCV (80.0-100.0) fL Plt Count (150-450) k/uL Lymphocytes # (1.0-4.8) k/uL Lymphocytes # (Manual) (1.0-4.8) k/uL PT (9.0-12.0) sec INR (<1.2) ABG pH (7.35-7.45) ABG pCO2 (35-45) mmHg ABG pO2 (83-108) mmHg ABG Total CO2 (19-24) mmol/L ABG O2 Saturation (94-97) % Glucose (74-99) mg/dL POC Glucose (mg/dL) 124 H 130 H 135 H (75-99) mg/dL Calcium (8.4-10.2) mg/dL Alkaline Phosphatase (38-126) U/L Total Protein (6.3-8.2) g/dL Albumin (3.5-5.0) g/dL Crossmatch - Imaging and Cardiology Chest x-ray: report reviewed, image reviewed Assessment and Plan (1) Coronary artery disease Current Visit: Yes Status: Chronic Code(s): I25.10 - ATHSCL HEART DISEASE OF [place] CORONARY ARTERY W/O ANG PCTRS SNOMED Code(s): 22674968 (2) Hypertension Current Visit: Yes Status: Chronic Code(s): I10 - ESSENTIAL (PRIMARY) HYPERTENSION SNOMED Code(s): 93452539 (3) Diabetes mellitus type 2 in obese Current Visit: Yes Status: Chronic Code(s): E11.69 - TYPE 2 DIABETES MELLITUS WITH OTHER SPECIFIED COMPLICATION; E66.9 - OBESITY, UNSPECIFIED SNOMED Code(s): 13837568 (4) Family history of premature coronary artery disease Current Visit: Yes Status: Chronic Code(s): Z82.49 - FAMILY HX OF ISCHEM HEART DIS AND OTH DIS OF THE [facility] SNOMED Code(s): 202256460 (5) Previous myocardial infarction older than 8 weeks Current Visit: No Status: Resolved Code(s): I25.2 - OLD MYOCARDIAL INFARCTION SNOMED Code(s): 6888646 (6) History of heart artery stent Current Visit: No Status: Resolved Code(s): Z95.5 - PRESENCE OF CORONARY ANGIOPLASTY IMPLANT AND GRAFT SNOMED Code(s): 811737163 (7) Hyperlipidemia Current Visit: Yes Status: Chronic Code(s): E78.5 - HYPERLIPIDEMIA, UNSPECIFIED SNOMED Code(s): 08722911 (8) History of DVT (deep vein thrombosis) Current Visit: No Status: Resolved Code(s): Z86.718 - PERSONAL HISTORY OF OTHER VENOUS THROMBOSIS AND EMBOLISM SNOMED Code(s): 545490359 (9) Arthritis Current Visit: Yes Status: Chronic Code(s): M19.90 - UNSPECIFIED OSTEOARTHRITIS, UNSPECIFIED SITE SNOMED Code(s): 2088303 (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 Continue baby aspirin, statin, heparin subcu, beta tony. Will maximize beta tony therapy as tolerated. Will hold Plavix for now secondary to thrombocytopenia, an expected outcome of surgery. 2. Continue to hold Xarelto. 3. Wean O2 as tolerated. Encourage incentive spirometry use. 4. Increase activity, ambulate as tolerated. PT/OT/cardiac rehab ordered 5. GI/DVT prophylaxis. 6. Discontinue Orting. 7. Will monitor daily labs, x-rays. 8. Insulin drip/diabetic management per primary care service. 9. More recommendations to follow. Time with Patient: Greater than 30
[2017-09-07] MEDS: PANTOPRAZOLE 40 MG TABLET PO SCH (09:00)
[2017-09-07] MEDS: ASPIRIN 81 MG PO SCH (09:00)
[2017-09-07] MEDS ORDERED: PANTOPRAZOLE 40 MG/10 ML VIAL IVP SCH (09:00)
[2017-09-07] MEDS ORDERED: ASPIRIN 325 MG TAB PO SCH (09:00)
[2017-09-07] MEDS ORDERED: CLOPIDOGREL 75 MG TAB PO SCH (09:00)
[2017-09-07 09:11] LABS: Glucose,Whole Blood 135 mg/dL (75-99)
[2017-09-07 10:20] LABS: Glucose,Whole Blood 134 mg/dL (75-99)
--- NOTE | 2017-09-07 10:42 | PN ---
PROGRESS NOTE HISTORY: Mr. Caceres is a 76-year-old male who underwent coronary bypass grafting yesterday. He is doing well this morning. His breathing has been stable. He denies any dizziness or palpitation. He has been in sinus mechanism. He has mild soreness in the chest. He received a FELIZ to LAD, saphenous vein graft to the obtuse marginal branch and saphenous vein graft to the PDA. He continues to be, at this time, on aspirin once a day, Lipitor 40 mg daily, metoprolol tartrate 12.5 mg twice a day. PHYSICAL EXAMINATION: Blood pressure 114/40 with a heart in the 70s. LUNGS: Few crackles at the bases. HEART: Regular rate and rhythm S1, S2 with rub. No gallop. ABDOMEN: Soft, nontender. EXTREMITIES: No significant edema. LAB DATA: Hemoglobin of 10. BUN and creatinine 13 and 0.9. IMPRESSION: 1. Status post coronary artery bypass grafting, appears to be stable. 2. History of hyperlipidemia. 3. History of diabetes. 4. History of hypertension. RECOMMENDATIONS: We will continue under routine postoperative care. Continue incentive spirometry. Increase his level of activity. Depending on the trend of his blood pressure, further adjustments will be made. MMODL / IJN: [id number] /
[2017-09-07] MEDS: CLOPIDOGREL 75 MG TAB PO SCH (10:53)
[2017-09-07 11:05] LABS: Glucose,Whole Blood 117 mg/dL (75-99)
--- NOTE | 2017-09-07 11:10 | P.PN ---
Subjective Progress Note Date: 09/07/17 Principal diagnosis: Severe coronary artery disease This is a very pleasant 76-year-old gentleman who follows with Dr. Jarett Oakley as his primary care physician. He has a history of diabetes mellitus, hyperlipidemia, hypertension, colitis, BPH, osteoarthritis with multiple surgeries including bilateral knee replacements. He also states his right hip is needing to be replaced. He was here in September 2016 with a left leg DVT and he remains on Xarelto. He has a remote history of chronic tobacco dependence for approximately 30 years. He did however quit in 1997. Denies having any pulmonary symptoms. He's never been on inhalers or oxygen the outpatient setting. He had not been seen by a vest baster in the past. He does have a history of coronary artery disease with previous myocardial infarction and stent placement in 2001. Since that time he had been doing quite well from the cardiac standpoint. Recently he had noticed some chest discomfort while shoveling snow and was seen by Dr. Oakley and subsequently with cardiology and was brought in for an outpatient cardiac catheterization today. Xarelto was stopped on 09/01/2017. He was found to have heavily calcified coronary arteries. He had significant 60-70% distal left main disease, significant 80% mid LAD disease and moderate 60-70% disease in the left circumflex. The plan is for coronary artery bypass grafting within the next 24- 48 hours. He is seen today in consultation on the selective care unit. He is resting flat in bed. He is awake and alert in no acute distress. He denies any shortness of breath, cough or congestion. No chest discomfort currently stating he has not had any since starting isosorbide mononitrate. He remains hemodynamically stable. Maintaining good O2 saturations in the mid to upper 90s on room air. Patient was reevaluated today on 09/05/2017, doing well, relatively asymptomatic , Xarelto remains on hold, and the patient is scheduled to undergo myocardial revascularization tomorrow in a.m. Pulmonary-eng, no cough no wheezing no shortness of breath. Labs were reviewed, relatively normal electrolytes are normal CBC noted. Chest x-ray showed no acute process. Bedside PFT is pending. Patient was reevaluated today on 09/06/2017, patient just came back from surgery , he underwent myocardial revascularization earlier, and he is back in the ICU on mechanical ventilation. His vent settings are FiO2 of 100%, PEEP of 5, SIMV of 14 and tidal volume of 500. ABG is pending, chest x-ray showed postoperative changes, endotracheal tube is almost in the right mainstem bronchus, it is at the level of the zoe. Hence it would be pulled up about to see him from present placement. Labs from earlier today showed relatively normal CBC, normal electrolytes are normal renal profile. Patient is presently sedated, on mechanical ventilation. Reevaluated today on 09/07/2017, patient was extubated last night shortly after his surgery, tolerated the extubation well, presently on nasal cannula, in no distress. Patient is relatively asymptomatic. Chest x-ray showed mostly postoperative changes. CBC is relatively normal, hemoglobin is 10. Platelets are a bit low, at 86,000, basic metabolic profile is normal renal profile is normal. Objective - Vital Signs Vital signs: Vital Signs Temp 97.9 F 09/07/17 08:00 Pulse 74 09/07/17 10:30 Resp 20 09/07/17 10:30 BP 131/80 09/06/17 06:29 Pulse Ox 98 09/07/17 10:30 Intake & Output 09/06/17 09/07/17 09/07/17 18:59 06:59 18:59 Intake Total 814.886 781.572 569.928 Output Total 2405 894 351 Balance -1590.114 -112.428 218.928 Weight 105 kg Intake: IV 233 585.5 50 0.9 FOR CO 50 190 20 0.9 NaCl for Pressure Bag 99 30 ACETAMINOPHEN IV (For NPO 100 ) 1,000 mg In Empty Bag 1 bag @ 400 mls/hr IVPB Q6HR ASHLEY Rx#:[id number] Lactated Ringers 1,000 ml 150 150 @ 10 mls/hr IV .Q24H PRN Rx#:[id number] Nitroglycerin-D5w Pmx 50 16.5 mg In Dextrose/Water 1 250ml.bag @ 5 MCG/MIN 1.5 mls/hr IV .Q24H PRN Rx#: [id number] ceFAZolin 2 gm In Sodium 30 Chloride 0.9% 30 ml @ 60 mls/hr IVPB ONCE PRN Rx#: [id number] Intake, IV Titration 121.886 146.072 94.928 Amount Insulin Regular 100 unit 1.586 33.672 4.928 In Sodium Chloride 0.9% 100 ml @ Per Protocol IV .Q0M ASHLEY Rx#:[id number] Lactated Ringers 1,000 ml 50 50 90 @ 20 mls/hr IV .Q24H ASHLEY Rx#:[id number] Propofol 1,000 mg In 70.3 62.4 Empty Bag 1 bag @ Titrate IV .Q0M ASHLEY Rx#: [id number] Oral 50 425 Blood Product 460 Ffp 24 Cp2d Unit 250 [id number] Ffp 24 Pher Acda Cnt2 210 Unit [id number] Output: Chest Tube Drainage 100 265 161 Bilateral Mediastinal 20 226 90 Left Lateral Chest 80 39 71 Drainage 110 30 Right Calf 110 30 Urine 1095 599 190 Estimated Blood Loss 1100 Other: Voiding Method Indwelling Catheter Indwelling Catheter Indwelling Catheter ABP, PAP, CO, CI - Last Documented Arterial Blood Pressure 93/46 Pulmonary Artery Pressure 40/14 Cardiac Output 7.9 Cardiac Index 3.8 - Exam GENERAL EXAM: Revealed a 76-year-old white male, on nasal cannula, in no distress. HEAD: Normocephalic. EYES: Normal reaction of pupils, equal size. NOSE: Clear with pink turbinates. THROAT: No erythema or exudates. NECK: No masses, no JVD. CHEST: No chest wall deformity. LUNGS: Equal air entry with no crackles, wheeze, rhonchi or dullness. CVS: S1 and S2 normal with no audible murmur, regular rhythm. ABDOMEN: No hepatosplenomegaly, normal bowel sounds, no guarding or rigidity. SPINE: No scoliosis or deformity SKIN: No rashes CENTRAL NERVOUS SYSTEM: Cannot be assessed, patient is fully sedated EXTREMITIES: There is no peripheral edema. No clubbing, no cyanosis. Peripheral pulses are intact. - Labs CBC & Chem 7: 09/07/17 05:10 09/07/17 05:10 Labs: Abnormal Lab Results - Last 24 Hours (Table) 09/04/17 09/06/17 09/06/17 Range/Units 11:43 11:27 12:00 RBC (4.30-5.90) m/uL Hgb (13.0-17.5) gm/dL Hct (39.0-53.0) % MCV (80.0-100.0) fL Plt Count (150-450) k/uL Lymphocytes # (1.0-4.8) k/uL Lymphocytes # (Manual) (1.0-4.8) k/uL PT (9.0-12.0) sec INR (<1.2) ABG pH (7.35-7.45) ABG pCO2 (35-45) mmHg ABG pO2 (83-108) mmHg ABG Total CO2 (19-24) mmol/L ABG O2 Saturation (94-97) % Glucose (74-99) mg/dL POC Glucose (mg/dL) 189 H 267 H (75-99) mg/dL Calcium (8.4-10.2) mg/dL Alkaline Phosphatase (38-126) U/L Total Protein (6.3-8.2) g/dL Albumin (3.5-5.0) g/dL Crossmatch See Detail 09/06/17 09/06/17 09/06/17 Range/Units 12:36 13:07 13:42 RBC (4.30-5.90) m/uL Hgb (13.0-17.5) gm/dL Hct (39.0-53.0) % MCV (80.0-100.0) fL Plt Count (150-450) k/uL Lymphocytes # (1.0-4.8) k/uL Lymphocytes # (Manual) (1.0-4.8) k/uL PT (9.0-12.0) sec INR (<1.2) ABG pH (7.35-7.45) ABG pCO2 (35-45) mmHg ABG pO2 (83-108) mmHg ABG Total CO2 (19-24) mmol/L ABG O2 Saturation (94-97) % Glucose (74-99) mg/dL POC Glucose (mg/dL) 289 H 281 H 257 H (75-99) mg/dL Calcium (8.4-10.2) mg/dL Alkaline Phosphatase (38-126) U/L Total Protein (6.3-8.2) g/dL Albumin (3.5-5.0) g/dL Crossmatch 09/06/17 09/06/17 09/06/17 Range/Units 14:24 15:30 15:30 RBC 3.01 L (4.30-5.90) m/uL Hgb 10.0 L D (13.0-17.5) gm/dL Hct 30.4 L (39.0-53.0) % MCV 101.0 H (80.0-100.0) fL Plt Count 75 L (150-450) k/uL Lymphocytes # (1.0-4.8) k/uL Lymphocytes # (Manual) 0.60 L (1.0-4.8) k/uL PT (9.0-12.0) sec INR (<1.2) ABG pH (7.35-7.45) ABG pCO2 (35-45) mmHg ABG pO2 (83-108) mmHg ABG Total CO2 (19-24) mmol/L ABG O2 Saturation (94-97) % Glucose 154 H (74-99) mg/dL POC Glucose (mg/dL) 211 H (75-99) mg/dL Calcium 8.3 L (8.4-10.2) mg/dL Alkaline Phosphatase 21 L (38-126) U/L Total Protein 4.6 L (6.3-8.2) g/dL Albumin 3.0 L (3.5-5.0) g/dL Crossmatch 09/06/17 09/06/17 09/06/17 Range/Units 15:30 15:37 16:04 RBC (4.30-5.90) m/uL Hgb (13.0-17.5) gm/dL Hct (39.0-53.0) % MCV (80.0-100.0) fL Plt Count (150-450) k/uL Lymphocytes # (1.0-4.8) k/uL Lymphocytes # (Manual) (1.0-4.8) k/uL PT 12.6 H (9.0-12.0) sec INR 1.3 H (<1.2) ABG pH 7.31 L (7.35-7.45) ABG pCO2 50 H (35-45) mmHg ABG pO2 131 H (83-108) mmHg ABG Total CO2 26 H (19-24) mmol/L ABG O2 Saturation 99.0 H (94-97) % Glucose (74-99) mg/dL POC Glucose (mg/dL) 157 H (75-99) mg/dL Calcium (8.4-10.2) mg/dL Alkaline Phosphatase (38-126) U/L Total Protein (6.3-8.2) g/dL Albumin (3.5-5.0) g/dL Crossmatch 09/06/17 09/06/17 09/06/17 Range/Units 16:08 16:59 17:59 RBC (4.30-5.90) m/uL Hgb (13.0-17.5) gm/dL Hct (39.0-53.0) % MCV (80.0-100.0) fL Plt Count (150-450) k/uL Lymphocytes # (1.0-4.8) k/uL Lymphocytes # (Manual) (1.0-4.8) k/uL PT (9.0-12.0) sec INR (<1.2) ABG pH (7.35-7.45) ABG pCO2 (35-45) mmHg ABG pO2 (83-108) mmHg ABG Total CO2 (19-24) mmol/L ABG O2 Saturation (94-97) % Glucose (74-99) mg/dL POC Glucose (mg/dL) 139 H 137 H 159 H (75-99) mg/dL Calcium (8.4-10.2) mg/dL Alkaline Phosphatase (38-126) U/L Total Protein (6.3-8.2) g/dL Albumin (3.5-5.0) g/dL Crossmatch 09/06/17 09/06/17 09/06/17 Range/Units 18:00 18:55 20:03 RBC 3.26 L (4.30-5.90) m/uL Hgb 10.8 L (13.0-17.5) gm/dL Hct 33.4 L (39.0-53.0) % MCV 102.4 H (80.0-100.0) fL Plt Count 84 L (150-450) k/uL Lymphocytes # (1.0-4.8) k/uL Lymphocytes # (Manual) 0.78 L (1.0-4.8) k/uL PT (9.0-12.0) sec INR (<1.2) ABG pH (7.35-7.45) ABG pCO2 (35-45) mmHg ABG pO2 (83-108) mmHg ABG Total CO2 (19-24) mmol/L ABG O2 Saturation (94-97) % Glucose (74-99) mg/dL POC Glucose (mg/dL) 127 H 167 H (75-99) mg/dL Calcium (8.4-10.2) mg/dL Alkaline Phosphatase (38-126) U/L Total Protein (6.3-8.2) g/dL Albumin (3.5-5.0) g/dL Crossmatch 09/06/17 09/06/17 09/06/17 Range/Units 21:09 21:27 22:13 RBC (4.30-5.90) m/uL Hgb (13.0-17.5) gm/dL Hct (39.0-53.0) % MCV (80.0-100.0) fL Plt Count (150-450) k/uL Lymphocytes # (1.0-4.8) k/uL Lymphocytes # (Manual) (1.0-4.8) k/uL PT (9.0-12.0) sec INR (<1.2) ABG pH (7.35-7.45) ABG pCO2 (35-45) mmHg ABG pO2 82 L (83-108) mmHg ABG Total CO2 25 H (19-24) mmol/L ABG O2 Saturation (94-97) % Glucose (74-99) mg/dL POC Glucose (mg/dL) 170 H 164 H (75-99) mg/dL Calcium (8.4-10.2) mg/dL Alkaline Phosphatase (38-126) U/L Total Protein (6.3-8.2) g/dL Albumin (3.5-5.0) g/dL Crossmatch 09/06/17 09/07/17 09/07/17 Range/Units 23:15 00:05 01:15 RBC (4.30-5.90) m/uL Hgb (13.0-17.5) gm/dL Hct (39.0-53.0) % MCV (80.0-100.0) fL Plt Count (150-450) k/uL Lymphocytes # (1.0-4.8) k/uL Lymphocytes # (Manual) (1.0-4.8) k/uL PT (9.0-12.0) sec INR (<1.2) ABG pH (7.35-7.45) ABG pCO2 (35-45) mmHg ABG pO2 (83-108) mmHg ABG Total CO2 (19-24) mmol/L ABG O2 Saturation (94-97) % Glucose (74-99) mg/dL POC Glucose (mg/dL) 146 H 136 H 136 H (75-99) mg/dL Calcium (8.4-10.2) mg/dL Alkaline Phosphatase (38-126) U/L Total Protein (6.3-8.2) g/dL Albumin (3.5-5.0) g/dL Crossmatch 09/07/17 09/07/17 09/07/17 Range/Units 02:28 04:05 05:04 RBC (4.30-5.90) m/uL Hgb (13.0-17.5) gm/dL Hct (39.0-53.0) % MCV (80.0-100.0) fL Plt Count (150-450) k/uL Lymphocytes # (1.0-4.8) k/uL Lymphocytes # (Manual) (1.0-4.8) k/uL PT (9.0-12.0) sec INR (<1.2) ABG pH (7.35-7.45) ABG pCO2 (35-45) mmHg ABG pO2 (83-108) mmHg ABG Total CO2 (19-24) mmol/L ABG O2 Saturation (94-97) % Glucose (74-99) mg/dL POC Glucose (mg/dL) 127 H 110 H 110 H (75-99) mg/dL Calcium (8.4-10.2) mg/dL Alkaline Phosphatase (38-126) U/L Total Protein (6.3-8.2) g/dL Albumin (3.5-5.0) g/dL Crossmatch 09/07/17 09/07/17 09/07/17 Range/Units 05:10 05:10 05:10 RBC 3.04 L (4.30-5.90) m/uL Hgb 10.0 L (13.0-17.5) gm/dL Hct 31.2 L (39.0-53.0) % MCV 102.8 H (80.0-100.0) fL Plt Count 86 L (150-450) k/uL Lymphocytes # 0.7 L (1.0-4.8) k/uL Lymphocytes # (Manual) (1.0-4.8) k/uL PT (9.0-12.0) sec INR 1.2 H (<1.2) ABG pH (7.35-7.45) ABG pCO2 (35-45) mmHg ABG pO2 (83-108) mmHg ABG Total CO2 (19-24) mmol/L ABG O2 Saturation (94-97) % Glucose 111 H (74-99) mg/dL POC Glucose (mg/dL) (75-99) mg/dL Calcium 8.3 L (8.4-10.2) mg/dL Alkaline Phosphatase 26 L (38-126) U/L Total Protein 4.7 L (6.3-8.2) g/dL Albumin 3.0 L (3.5-5.0) g/dL Crossmatch 09/07/17 09/07/17 09/07/17 Range/Units 05:12 06:06 07:03 RBC (4.30-5.90) m/uL Hgb (13.0-17.5) gm/dL Hct (39.0-53.0) % MCV (80.0-100.0) fL Plt Count (150-450) k/uL Lymphocytes # (1.0-4.8) k/uL Lymphocytes # (Manual) (1.0-4.8) k/uL PT (9.0-12.0) sec INR (<1.2) ABG pH (7.35-7.45) ABG pCO2 (35-45) mmHg ABG pO2 (83-108) mmHg ABG Total CO2 (19-24) mmol/L ABG O2 Saturation (94-97) % Glucose (74-99) mg/dL POC Glucose (mg/dL) 116 H 124 H 130 H (75-99) mg/dL Calcium (8.4-10.2) mg/dL Alkaline Phosphatase (38-126) U/L Total Protein (6.3-8.2) g/dL Albumin (3.5-5.0) g/dL Crossmatch 09/07/17 09/07/17 09/07/17 Range/Units 08:05 09:09 10:18 RBC (4.30-5.90) m/uL Hgb (13.0-17.5) gm/dL Hct (39.0-53.0) % MCV (80.0-100.0) fL Plt Count (150-450) k/uL Lymphocytes # (1.0-4.8) k/uL Lymphocytes # (Manual) (1.0-4.8) k/uL PT (9.0-12.0) sec INR (<1.2) ABG pH (7.35-7.45) ABG pCO2 (35-45) mmHg ABG pO2 (83-108) mmHg ABG Total CO2 (19-24) mmol/L ABG O2 Saturation (94-97) % Glucose (74-99) mg/dL POC Glucose (mg/dL) 135 H 135 H 134 H (75-99) mg/dL Calcium (8.4-10.2) mg/dL Alkaline Phosphatase (38-126) U/L Total Protein (6.3-8.2) g/dL Albumin (3.5-5.0) g/dL Crossmatch 09/07/17 Range/Units 11:03 RBC (4.30-5.90) m/uL Hgb (13.0-17.5) gm/dL Hct (39.0-53.0) % MCV (80.0-100.0) fL Plt Count (150-450) k/uL Lymphocytes # (1.0-4.8) k/uL Lymphocytes # (Manual) (1.0-4.8) k/uL PT (9.0-12.0) sec INR (<1.2) ABG pH (7.35-7.45) ABG pCO2 (35-45) mmHg ABG pO2 (83-108) mmHg ABG Total CO2 (19-24) mmol/L ABG O2 Saturation (94-97) % Glucose (74-99) mg/dL POC Glucose (mg/dL) 117 H (75-99) mg/dL Calcium (8.4-10.2) mg/dL Alkaline Phosphatase (38-126) U/L Total Protein (6.3-8.2) g/dL Albumin (3.5-5.0) g/dL Crossmatch Assessment and Plan Assessment: #1 status post CABG for triple vessel coronary artery disease, postoperative day #1, patient was extubated last night uneventfully. #2 Exertional chest pain in a patient found to have significant coronary artery disease. Cardiac catheterization today revealed heavily calcified coronary arteries. He had significant 60-70% distal left main disease, significant 80% mid LAD disease and moderate 60-70% disease in the left circumflex. The plan is for coronary artery bypass grafting within the next 24-48 hours. #3 History of coronary artery disease with previous myocardial infarction and stent placement in 2001. 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 Held since 09/01/2017. #5 Remote history of approximately 30 years at 1 pack per day chronic tobacco dependence, however quit in 1997. #6 Diabetes mellitus, type II. #7 Hypertension. #7 Hyperlipidemia. # 9 Benign prostatic hypertrophy. # 10 History of colitis. # 11 Osteoarthritis with multiple orthopedic surgeries including bilateral knee replacements and cervical spine surgery. Eventually needing a right hip replacement as well. Recommendation: Continue present supportive care measures, incentive spirometry , bronchodilators, and early ambulation. Time with Patient: Less than 30
[2017-09-07 11:19] VITALS: BMI 37.3
[2017-09-07 12:01] LABS: Glucose,Whole Blood 125 mg/dL (75-99)
[2017-09-07 13:13] LABS: Glucose,Whole Blood 244 mg/dL (75-99)
[2017-09-07] MEDS ORDERED: BISACODYL 10 MG SUPP RECTAL PRN (13:32)
[2017-09-07] MEDS ORDERED: MAGNESIUM HYDROXIDE 2,400 MG/10 ML CUP PO PRN (13:32)
[2017-09-07] MEDS ORDERED: IPRATROPIUM-ALBUTEROL 3 ML NEB INHALATION PRN (13:33)
[2017-09-07 14:06] LABS: Glucose,Whole Blood 206 mg/dL (75-99)
[2017-09-07 15:52] LABS: Glucose,Whole Blood 135 mg/dL (75-99)
[2017-09-07] MEDS: LACTATED RINGERS 1,000 ML IV SCH (15:55)
[2017-09-07 16:27] LABS: Glucose,Whole Blood 118 mg/dL (75-99)
[2017-09-07 17:12] LABS: Glucose,Whole Blood 115 mg/dL (75-99)
[2017-09-07 18:11] LABS: Glucose,Whole Blood 138 mg/dL (75-99)
[2017-09-07 19:07] LABS: Glucose,Whole Blood 177 mg/dL (75-99)
[2017-09-07 20:12] LABS: Glucose,Whole Blood 207 mg/dL (75-99)
[2017-09-07 21:21] LABS: Glucose,Whole Blood 186 mg/dL (75-99)
[2017-09-07] MEDS: HYDROcodone/APAP 5-325MG 1 EACH TAB PO PRN (21:22)
[2017-09-07] MEDS: SENNOSIDES-DOCUSATE SODIUM 1 EACH TAB PO SCH (21:22)
[2017-09-07 22:31] LABS: Glucose,Whole Blood 158 mg/dL (75-99)
[2017-09-07 23:29] LABS: Glucose,Whole Blood 139 mg/dL (75-99)
[2017-09-08 01:12] LABS: Glucose,Whole Blood 108 mg/dL (75-99)
[2017-09-08 02:13] LABS: Glucose,Whole Blood 111 mg/dL (75-99)
[2017-09-08 03:19] LABS: Glucose,Whole Blood 127 mg/dL (75-99)
[2017-09-08] MEDS: INSULIN REGULAR 100 UNIT in SODIUM CHLORIDE 0.9% 100 ML IV SCH (03:37)
[2017-09-08 04:08] LABS: Glucose,Whole Blood 129 mg/dL (75-99)
[2017-09-08 04:20] LABS: Basophils % (A) 0 %; Eosinophils % (A) 0 %; HCT 29.3 % (39.0-53.0); HGB 9.1 gm/dL (13.0-17.5); Lymphocytes # (A) 0.7 k/uL (1.0-4.8); Lymphocytes % (A) 10 %; MCH 33.2 pg (25.0-35.0); MCHC 31.2 g/dL (31.0-37.0); MCV 106.5 fL (80.0-100.0); Macrocytosis Moderate; Mean Platelet Volume 10.4; Monocytes # (A) 0.5 k/uL (0-1.0); Monocytes % (A) 6 %; Neutrophils % (A) 82 %; RBC 2.75 m/uL (4.30-5.90); RDW 14.8 % (11.5-15.5); WBC 7.3 k/uL (3.8-10.6)
[2017-09-08 04:27] LABS: Ionized Calcium 4.8 mg/dL (4.5-5.3)
[2017-09-08 04:28] LABS: Platelet Count 77 k/uL (150-450)
[2017-09-08 04:37] LABS: ALT 39 U/L (21-72); AST 41 U/L (17-59); Alkaline Phosphatase 31 U/L (38-126); Anion Gap 8 mmol/L; Blood Urea Nitrogen 11 mg/dL (9-20); Calcium 8.1 mg/dL (8.4-10.2); Carbon Dioxide 28 mmol/L (22-30); Chloride 101 mmol/L (98-107); Glucose 120 mg/dL (74-99); Magnesium 1.9 mg/dL (1.6-2.3); Potassium 4.1 mmol/L (3.5-5.1); Sodium 137 mmol/L (137-145); Total Bilirubin 1.6 mg/dL (0.2-1.3); Total Protein 4.8 g/dL (6.3-8.2)
[2017-09-08] MEDS: HYDROcodone/APAP 5-325MG 1 EACH TAB PO PRN ×5 (05:41→21:45)
[2017-09-08 05:45] LABS: Glucose,Whole Blood 119 mg/dL (75-99)
[2017-09-08 06:42] LABS: Glucose,Whole Blood 123 mg/dL (75-99)
--- NOTE | 2017-09-08 06:52 | XR ---
EXAMINATION TYPE: XR chest 1V portable DATE OF EXAM: 09/08/2017 HISTORY: post cardiac surgery. REFERENCE: Previous study dated 09/07/2017. FINDINGS: The patient [place] catheter is been removed. A left pleural drain remains in place. There continues to be left basilar airspace disease. There is a small left effusion. The heart is mil dly enlarged. IMPRESSION: CONTINUING POSTOPERATIVE CHANGE.
[2017-09-08 07:08] LABS: Glucose,Whole Blood 129 mg/dL (75-99)
[2017-09-08] MEDS ORDERED: Magnesium Replacement Protocol 1 EACH MISC MISCELLANE PRN (07:38)
[2017-09-08 07:46] LABS: Glucose,Whole Blood 116 mg/dL (75-99)
[2017-09-08] MEDS: MAGNESIUM SULFATE-D5W PMX 1 GM in DEXTROSE/WATER 1 100ML.BAG IVPB SCH ×2 (08:32→09:25)
[2017-09-08] MEDS: PANTOPRAZOLE 40 MG TABLET PO SCH (08:45)
[2017-09-08] MEDS: ATORVASTATIN 40 MG TAB PO SCH (08:46)
[2017-09-08] MEDS: ASPIRIN 81 MG PO SCH (08:46)
[2017-09-08] MEDS: HEPARIN SODIUM,PORCINE 5,000 UNIT/ML 1 ML VIAL SQ SCH ×3 (08:46→23:21)
[2017-09-08] MEDS: CLOPIDOGREL 75 MG TAB PO SCH (08:46)
[2017-09-08] MEDS: METOPROLOL TARTRATE 12.5 MG TAB PO SCH ×2 (08:47→20:55)
[2017-09-08] MEDS: MUPIROCIN 2% OINT 22 GM TUBE NASAL SCH ×2 (08:48→20:55)
[2017-09-08] MEDS: DOXAZOSIN 2 MG TAB PO SCH ×2 (08:50→20:55)
--- NOTE | 2017-09-08 08:51 | P.PN ---
Subjective Progress Note Date: 09/08/17 Principal diagnosis: Coronary artery disease with left main disease. Previous medical history of myocardial infarction with stent placement in 2001, hypertension, diabetes mellitus type 2 with current hemoglobin A1c 8.5%, hyperlipidemia, DVT of the left lower extremity in September 2016, previous tobacco dependence, family history of premature coronary artery disease with father from myocardial infarction at 49 years old, enlarged prostate, multiple orthopedic surgeries. POD #2 urgent coronary artery bypass grafting 3 vessels, left internal mammary artery to left anterior descending artery, reverse saphenous vein graft to the obtuse marginal artery, reverse saphenous vein graft to the posterior descending artery, endoscopic vein harvest of the right greater saphenous vein, epi-aortic ultrasound, intraoperative transesophageal echocardiogram. Patient's currently sitting up in a recliner in no acute distress. States sternal pain is well-controlled with ordered pain medication. No new concerns. Patient has ambulated. Objective - Vital Signs Vital signs: Vital Signs Temp 98.1 F 09/08/17 08:00 Pulse 88 09/08/17 08:00 Resp 20 09/08/17 08:00 BP 136/63 09/08/17 08:00 Pulse Ox 97 09/08/17 08:00 Intake & Output 09/07/17 09/08/17 09/08/17 18:59 06:59 18:59 Intake Total 1294.168 935.600 66 Output Total 845 945 90 Balance 449.168 -9.400 -24 Weight 105 kg 107 kg Intake: IV 98 372 66 0.9 FOR CO 20 0.9 NaCl @ 30 ml/hr 330 60 0.9 NaCl for Pressure Bag 78 42 6 Intake, IV Titration 371.168 63.600 Amount Insulin Regular 100 unit 41.168 33.600 In Sodium Chloride 0.9% 100 ml @ Per Protocol IV .Q0M [facility] Rx#:[id number] Lactated Ringers 1,000 ml 330 30 @ 20 mls/hr IV .Q24H [facility] Rx#:[id number] Oral 825 500 Output: Chest Tube Drainage 345 160 20 Bilateral Mediastinal 170 100 10 Left Lateral Chest 175 60 10 Drainage 20 0 0 Right Calf 20 0 0 Urine 480 785 70 Other: Voiding Method Indwelling Catheter Indwelling Catheter ABP, PAP, CO, CI - Last Documented Arterial Blood Pressure 74/55 Pulmonary Artery Pressure 40/14 Cardiac Output 7.9 Cardiac Index 3.8 - Constitutional General appearance: Present: cooperative, no acute distress, obese - Respiratory Details: Lungs sounds diminished bilaterally. Respirations even, nonlabored. Currently on 2 L nasal cannula with oxygen saturations 94%. Able to achieve 750 mL on his incentive spirometry. Mediastinal chest tube to -20 cm wall suction, 50 mL serous drainage overnight, 250 mL the last 24 hours. Left pleural chest tube to -20 cm wall suction, 40 mL serous drainage overnight, 200 mL last 24 hours. No air leaks present. Chest x-ray reviewed, small left pleural effusion present. - Cardiovascular Details: S1, S2 present. Regular rate and rhythm, sinus rhythm on telemetry. A/V epicardial pacemaker wires present, grounded. Sternum stable. Palpable peripheral pulses bilaterally. No edema present. No calf pain or tenderness noted. Right internal jugular Cordis present. Heart hugger in place with patient demonstrating appropriate use. Antiembolism stockings, SCDs present. - Gastrointestinal Gastrointestinal Comment(s): Abdomen soft, nontender, nondistended. Active bowel sounds 4 quadrants. Tolerating diet. Positive flatus, negative BM. - Genitourinary Genitourinary Comment(s): Ta present draining clear, yellow urine. Output 45-75 mL/h overnight. - Integumentary Integumentary Comment(s): Sternal incision well approximated and covered with dry intact dressing. Right lower extremity EVH site well approximated, KYLER drain present with minimal serous drainage. Warm, dry, pink with evidence of good perfusion. - Neurologic Neurologic: Present: CNII-XII intact - Musculoskeletal Musculoskeletal: Present: gait normal, strength equal bilaterally - Psychiatric Psychiatric: Present: A&O x's 3, appropriate affect, intact judgment & insight - Allied health notes Allied health notes reviewed: nursing - Labs CBC & Chem 7: 09/08/17 04:05 09/08/17 04:05 Labs: Abnormal Lab Results - Last 24 Hours (Table) 09/07/17 09/07/17 09/07/17 Range/Units 09:09 10:18 11:03 RBC (4.30-5.90) m/uL Hgb (13.0-17.5) gm/dL Hct (39.0-53.0) % MCV (80.0-100.0) fL Plt Count (150-450) k/uL Lymphocytes # (1.0-4.8) k/uL Glucose (74-99) mg/dL POC Glucose (mg/dL) 135 H 134 H 117 H (75-99) mg/dL Calcium (8.4-10.2) mg/dL Total Bilirubin (0.2-1.3) mg/dL Alkaline Phosphatase (38-126) U/L Total Protein (6.3-8.2) g/dL Albumin (3.5-5.0) g/dL 09/07/17 09/07/17 09/07/17 Range/Units 12:00 13:11 14:03 RBC (4.30-5.90) m/uL Hgb (13.0-17.5) gm/dL Hct (39.0-53.0) % MCV (80.0-100.0) fL Plt Count (150-450) k/uL Lymphocytes # (1.0-4.8) k/uL Glucose (74-99) mg/dL POC Glucose (mg/dL) 125 H 244 H 206 H (75-99) mg/dL Calcium (8.4-10.2) mg/dL Total Bilirubin (0.2-1.3) mg/dL Alkaline Phosphatase (38-126) U/L Total Protein (6.3-8.2) g/dL Albumin (3.5-5.0) g/dL 09/07/17 09/07/17 09/07/17 Range/Units 15:50 16:24 17:10 RBC (4.30-5.90) m/uL Hgb (13.0-17.5) gm/dL Hct (39.0-53.0) % MCV (80.0-100.0) fL Plt Count (150-450) k/uL Lymphocytes # (1.0-4.8) k/uL Glucose (74-99) mg/dL POC Glucose (mg/dL) 135 H 118 H 115 H (75-99) mg/dL Calcium (8.4-10.2) mg/dL Total Bilirubin (0.2-1.3) mg/dL Alkaline Phosphatase (38-126) U/L Total Protein (6.3-8.2) g/dL Albumin (3.5-5.0) g/dL 09/07/17 09/07/1718 Range/Units 18:10 19:04 20:10 RBC (4.30-5.90) m/uL Hgb (13.0-17.5) gm/dL Hct (39.0-53.0) % MCV (80.0-100.0) fL Plt Count (150-450) k/uL Lymphocytes # (1.0-4.8) k/uL Glucose (74-99) mg/dL POC Glucose (mg/dL) 138 H 177 H 207 H (75-99) mg/dL Calcium (8.4-10.2) mg/dL Total Bilirubin (0.2-1.3) mg/dL Alkaline Phosphatase (38-126) U/L Total Protein (6.3-8.2) g/dL Albumin (3.5-5.0) g/dL 09/07/17 09/07/17 09/07/17 Range/Units 21:19 22:29 23:25 RBC (4.30-5.90) m/uL Hgb (13.0-17.5) gm/dL Hct (39.0-53.0) % MCV (80.0-100.0) fL Plt Count (150-450) k/uL Lymphocytes # (1.0-4.8) k/uL Glucose (74-99) mg/dL POC Glucose (mg/dL) 186 H 158 H 139 H (75-99) mg/dL Calcium (8.4-10.2) mg/dL Total Bilirubin (0.2-1.3) mg/dL Alkaline Phosphatase (38-126) U/L Total Protein (6.3-8.2) g/dL Albumin (3.5-5.0) g/dL 09/08/17 09/08/17 09/08/17 Range/Units 01:10 02:10 03:09 RBC (4.30-5.90) m/uL Hgb (13.0-17.5) gm/dL Hct (39.0-53.0) % MCV (80.0-100.0) fL Plt Count (150-450) k/uL Lymphocytes # (1.0-4.8) k/uL Glucose (74-99) mg/dL POC Glucose (mg/dL) 108 H 111 H 127 H (75-99) mg/dL Calcium (8.4-10.2) mg/dL Total Bilirubin (0.2-1.3) mg/dL Alkaline Phosphatase (38-126) U/L Total Protein (6.3-8.2) g/dL Albumin (3.5-5.0) g/dL 09/08/17 09/08/17 09/08/17 Range/Units 04:05 04:05 04:05 RBC 2.75 L (4.30-5.90) m/uL Hgb 9.1 L (13.0-17.5) gm/dL Hct 29.3 L (39.0-53.0) % MCV 106.5 H (80.0-100.0) fL Plt Count 77 L (150-450) k/uL Lymphocytes # 0.7 L (1.0-4.8) k/uL Glucose 120 H (74-99) mg/dL POC Glucose (mg/dL) 129 H (75-99) mg/dL Calcium 8.1 L (8.4-10.2) mg/dL Total Bilirubin 1.6 H (0.2-1.3) mg/dL Alkaline Phosphatase 31 L (38-126) U/L Total Protein 4.8 L (6.3-8.2) g/dL Albumin 3.0 L (3.5-5.0) g/dL 09/08/17 09/08/17 09/08/17 Range/Units 05:36 06:22 07:07 RBC (4.30-5.90) m/uL Hgb (13.0-17.5) gm/dL Hct (39.0-53.0) % MCV (80.0-100.0) fL Plt Count (150-450) k/uL Lymphocytes # (1.0-4.8) k/uL Glucose (74-99) mg/dL POC Glucose (mg/dL) 119 H 123 H 129 H (75-99) mg/dL Calcium (8.4-10.2) mg/dL Total Bilirubin (0.2-1.3) mg/dL Alkaline Phosphatase (38-126) U/L Total Protein (6.3-8.2) g/dL Albumin (3.5-5.0) g/dL 09/08/17 Range/Units 07:45 RBC (4.30-5.90) m/uL Hgb (13.0-17.5) gm/dL Hct (39.0-53.0) % MCV (80.0-100.0) fL Plt Count (150-450) k/uL Lymphocytes # (1.0-4.8) k/uL Glucose (74-99) mg/dL POC Glucose (mg/dL) 116 H (75-99) mg/dL Calcium (8.4-10.2) mg/dL Total Bilirubin (0.2-1.3) mg/dL Alkaline Phosphatase (38-126) U/L Total Protein (6.3-8.2) g/dL Albumin (3.5-5.0) g/dL - Imaging and Cardiology Chest x-ray: report reviewed, image reviewed Assessment and Plan (1) Coronary artery disease Current Visit: Yes Status: Chronic Code(s): I25.10 - ATHSCL HEART DISEASE OF [place] CORONARY ARTERY W/O ANG PCTRS SNOMED Code(s): 79706604 (2) Hypertension Current Visit: Yes Status: Chronic Code(s): I10 - ESSENTIAL (PRIMARY) HYPERTENSION SNOMED Code(s): 28784401 (3) Diabetes mellitus type 2 in obese Current Visit: Yes Status: Chronic Code(s): E11.69 - TYPE 2 DIABETES MELLITUS WITH OTHER SPECIFIED COMPLICATION; E66.9 - OBESITY, UNSPECIFIED SNOMED Code(s): 90715363 (4) Family history of premature coronary artery disease Current Visit: Yes Status: Chronic Code(s): Z82.49 - FAMILY HX OF ISCHEM HEART DIS AND OTH DIS OF THE CIRC SYS SNOMED Code(s): 926373034 (5) Previous myocardial infarction older than 8 weeks Current Visit: No Status: Resolved Code(s): I25.2 - OLD MYOCARDIAL INFARCTION SNOMED Code(s): 9136878 (6) History of heart artery stent Current Visit: No Status: Resolved Code(s): Z95.5 - PRESENCE OF CORONARY ANGIOPLASTY IMPLANT AND GRAFT SNOMED Code(s): 203312399 (7) Hyperlipidemia Current Visit: Yes Status: Chronic Code(s): E78.5 - HYPERLIPIDEMIA, UNSPECIFIED SNOMED Code(s): 61960745 (8) History of DVT (deep vein thrombosis) Current Visit: No Status: Resolved Code(s): Z86.718 - PERSONAL HISTORY OF OTHER VENOUS THROMBOSIS AND EMBOLISM SNOMED Code(s): 917697968 (9) Arthritis Current Visit: Yes Status: Chronic Code(s): M19.90 - UNSPECIFIED OSTEOARTHRITIS, UNSPECIFIED SITE SNOMED Code(s): 8411370 (10) Tobacco dependence in remission Current Visit: No Status: Resolved Code(s): F17.201 - NICOTINE DEPENDENCE, UNSPECIFIED, IN REMISSION SNOMED Code(s): 218679297 (11) Obesity (BMI 30-39.9) Current Visit: Yes Status: Chronic Code(s): E66.9 - OBESITY, UNSPECIFIED SNOMED Code(s): 723305733 (12) Left main coronary artery disease Current Visit: Yes Status: Chronic Code(s): I25.10 - ATHSCL HEART DISEASE OF [place] CORONARY ARTERY W/O ANG PCTRS SNOMED Code(s): 918103605 Plan: 1. Continue baby aspirin, Plavix, statin, heparin subcu, beta tony. Will maximize beta tony therapy as tolerated. 2. Continue to hold Xarelto. 3. Wean O2 as tolerated. Encourage incentive spirometry use. 4. Increase activity, ambulate as tolerated. PT/OT/cardiac rehab following. 5. GI/DVT prophylaxis. 6. Will re-add home [facility] for enlarged prostate. 7. Likely will discontinue mediastinal chest tube. 8. Will monitor daily labs, x-rays. 9. Diabetic management per primary care service. 10. Likely will transfer to [facility] today if bed available. 11. More recommendations to follow. Time with Patient: Greater than 30
--- NOTE | 2017-09-08 08:52 | PN ---
PROGRESS NOTE Mr. Caceres is a 76-year-old male who underwent a coronary artery bypass grafting. He is doing well this morning. His breathing stable. He denies any dizziness or palpitation. He continued be in sinus mechanism. He has no evidence of tachy or bradycardia. He continued on aspirin once a day, Lipitor 40 mg daily, Plavix 75 mg daily, metoprolol tartrate 12.5 mg twice a day. PHYSICAL EXAMINATION: Blood pressure 113/50 with a heart rate in 80s. LUNGS: With mild crackles at the bases. Heart regular rate and rhythm S1, S2. No S3 with systolic ejection murmur at the base. ABDOMEN: Soft, nontender. EXTREMITIES: With trace to 1+ edema. LAB DATA: BUN and creatinine 11 and 0.8. Hemoglobin of 9.1. IMPRESSION: 1. Status post coronary artery bypass grafting. 2. History of hyperlipidemia. 3. History of diabetes. RECOMMENDATION: We will continue current therapy. Continue increasing his level of activity. I am hopeful we will pull the chest tube today and probably transfer on telemetry floor on an earlier time. MMODL / IJN: [id number] /
[2017-09-08] MEDS: INSULN ASP PRT/INSULIN ASPART 100 UNIT/ML 10 ML VIAL SQ SCH (08:55)
[2017-09-08] MEDS ORDERED: FUROSEMIDE 10 MG/ML 2 ML VIAL IV STA (11:01)
--- NOTE | 2017-09-08 11:35 | P.PN ---
Subjective Progress Note Date: 09/08/17 Principal diagnosis: Severe coronary artery disease This is a very pleasant 76-year-old gentleman who follows with Dr. Jarett Oakley as his primary care physician. He has a history of diabetes mellitus, hyperlipidemia, hypertension, colitis, BPH, osteoarthritis with multiple surgeries including bilateral knee replacements. He also states his right hip is needing to be replaced. He was here in September 2016 with a left leg DVT and he remains on Xarelto. He has a remote history of chronic tobacco dependence for approximately 30 years. He did however quit in 1997. Denies having any pulmonary symptoms. He's never been on inhalers or oxygen the outpatient setting. He had not been seen by a intelligence agent in the past. He does have a history of coronary artery disease with previous myocardial infarction and stent placement in 2001. Since that time he had been doing quite well from the cardiac standpoint. Recently he had noticed some chest discomfort while shoveling snow and was seen by Dr. Oakley and subsequently with cardiology and was brought in for an outpatient cardiac catheterization today. Xarelto was stopped on 09/01/2017. He was found to have heavily calcified coronary arteries. He had significant 60-70% distal left main disease, significant 80% mid LAD disease and moderate 60-70% disease in the left circumflex. The plan is for coronary artery bypass grafting within the next 24- 48 hours. He is seen today in consultation on the selective care unit. He is resting flat in bed. He is awake and alert in no acute distress. He denies any shortness of breath, cough or congestion. No chest discomfort currently stating he has not had any since starting isosorbide mononitrate. He remains hemodynamically stable. Maintaining good O2 saturations in the mid to upper 90s on room air. Patient was reevaluated today on 09/05/2017, doing well, relatively asymptomatic , Xarelto remains on hold, and the patient is scheduled to undergo myocardial revascularization tomorrow in a.m. Pulmonary-eng, no cough no wheezing no shortness of breath. Labs were reviewed, relatively normal electrolytes are normal CBC noted. Chest x-ray showed no acute process. Bedside PFT is pending. Patient was reevaluated today on 09/06/2017, patient just came back from surgery , he underwent myocardial revascularization earlier, and he is back in the ICU on mechanical ventilation. His vent settings are FiO2 of 100%, PEEP of 5, SIMV of 14 and tidal volume of 500. ABG is pending, chest x-ray showed postoperative changes, endotracheal tube is almost in the right mainstem bronchus, it is at the level of the zoe. Hence it would be pulled up about to see him from present placement. Labs from earlier today showed relatively normal CBC, normal electrolytes are normal renal profile. Patient is presently sedated, on mechanical ventilation. Reevaluated today on 09/07/2017, patient was extubated last night shortly after his surgery, tolerated the extubation well, presently on nasal cannula, in no distress. Patient is relatively asymptomatic. Chest x-ray showed mostly postoperative changes. CBC is relatively normal, hemoglobin is 10. Platelets are a bit low, at 86,000, basic metabolic profile is normal renal profile is normal. Reevaluated today on 09/08/2017, patient continues to do well, relatively asymptomatic.patient is sitting in a bedside chair, in no distress, and in no pain.hemoglobin is 9.1, normal basic metabolic profile was noted. Chest x-ray was also noted to be relatively unremarkable.except for postoperative changes as expected. Objective - Vital Signs Vital signs: Vital Signs Temp 98.1 F 09/08/17 08:00 Pulse 75 09/08/17 11:00 Resp 24 09/08/17 11:00 BP 117/66 09/08/17 11:00 Pulse Ox 96 09/08/17 11:00 Intake & Output 09/07/17 09/08/17 09/08/17 18:59 06:59 18:59 Intake Total 1294.168 935.600 756 Output Total 845 945 320 Balance 449.168 -9.400 436 Weight 105 kg 107 kg Intake: IV 98 372 256 0.9 FOR CO 20 0.9 NaCl @ 30 ml/hr 330 90 0.9 NaCl for Pressure Bag 78 42 6 Lactated Ringers 1,000 ml 60 @ 10 mls/hr IV .Q24H [facility] Rx#:[id number] Magnesium Sulfate-D5w Pmx 100 1 gm In Dextrose/Water 1 100ml.bag @ 100 mls/hr IVPB Q1H [facility] Rx#: [id number] Intake, IV Titration 371.168 63.600 Amount Insulin Regular 100 unit 41.168 33.600 In Sodium Chloride 0.9% 100 ml @ Per Protocol IV .Q0M [facility] Rx#:[id number] Lactated Ringers 1,000 ml 330 30 @ 20 mls/hr IV .Q24H [facility] Rx#:[id number] Oral 825 500 500 Output: Chest Tube Drainage 345 160 100 Bilateral Mediastinal 170 100 30 Left Lateral Chest 175 60 70 Drainage 20 0 0 Right Calf 20 0 0 Urine 480 785 220 Other: Voiding Method Indwelling Catheter Indwelling Catheter Indwelling Catheter ABP, PAP, CO, CI - Last Documented Arterial Blood Pressure 74/55 Pulmonary Artery Pressure 40/14 Cardiac Output 7.9 Cardiac Index 3.8 - Exam GENERAL EXAM: Revealed a 76-year-old white male, on nasal cannula, in no distress. HEAD: Normocephalic. EYES: Normal reaction of pupils, equal size. NOSE: Clear with pink turbinates. THROAT: No erythema or exudates. NECK: No masses, no JVD. CHEST: No chest wall deformity. LUNGS: Equal air entry with no crackles, wheeze, rhonchi or dullness. CVS: S1 and S2 normal with no audible murmur, regular rhythm. ABDOMEN: No hepatosplenomegaly, normal bowel sounds, no guarding or rigidity. SPINE: No scoliosis or deformity SKIN: No rashes CENTRAL NERVOUS SYSTEM: Cannot be assessed, patient is fully sedated EXTREMITIES: There is no peripheral edema. No clubbing, no cyanosis. Peripheral pulses are intact. - Labs CBC & Chem 7: 09/08/17 04:05 09/08/17 04:05 Labs: Abnormal Lab Results - Last 24 Hours (Table) 09/07/17 09/07/17 09/07/17 Range/Units 12:00 13:11 14:03 RBC (4.30-5.90) m/uL Hgb (13.0-17.5) gm/dL Hct (39.0-53.0) % MCV (80.0-100.0) fL Plt Count (150-450) k/uL Lymphocytes # (1.0-4.8) k/uL Glucose (74-99) mg/dL POC Glucose (mg/dL) 125 H 244 H 206 H (75-99) mg/dL Calcium (8.4-10.2) mg/dL Total Bilirubin (0.2-1.3) mg/dL Alkaline Phosphatase (38-126) U/L Total Protein (6.3-8.2) g/dL Albumin (3.5-5.0) g/dL 09/07/17 09/07/17 09/07/17 Range/Units 15:50 16:24 17:10 RBC (4.30-5.90) m/uL Hgb (13.0-17.5) gm/dL Hct (39.0-53.0) % MCV (80.0-100.0) fL Plt Count (150-450) k/uL Lymphocytes # (1.0-4.8) k/uL Glucose (74-99) mg/dL POC Glucose (mg/dL) 135 H 118 H 115 H (75-99) mg/dL Calcium (8.4-10.2) mg/dL Total Bilirubin (0.2-1.3) mg/dL Alkaline Phosphatase (38-126) U/L Total Protein (6.3-8.2) g/dL Albumin (3.5-5.0) g/dL 09/07/17 09/07/17 09/07/17 Range/Units 18:10 19:04 20:10 RBC (4.30-5.90) m/uL Hgb (13.0-17.5) gm/dL Hct (39.0-53.0) % MCV (80.0-100.0) fL Plt Count (150-450) k/uL Lymphocytes # (1.0-4.8) k/uL Glucose (74-99) mg/dL POC Glucose (mg/dL) 138 H 177 H 207 H (75-99) mg/dL Calcium (8.4-10.2) mg/dL Total Bilirubin (0.2-1.3) mg/dL Alkaline Phosphatase (38-126) U/L Total Protein (6.3-8.2) g/dL Albumin (3.5-5.0) g/dL 09/07/17 09/07/17 09/07/17 Range/Units 21:19 22:29 23:25 RBC (4.30-5.90) m/uL Hgb (13.0-17.5) gm/dL Hct (39.0-53.0) % MCV (80.0-100.0) fL Plt Count (150-450) k/uL Lymphocytes # (1.0-4.8) k/uL Glucose (74-99) mg/dL POC Glucose (mg/dL) 186 H 158 H 139 H (75-99) mg/dL Calcium (8.4-10.2) mg/dL Total Bilirubin (0.2-1.3) mg/dL Alkaline Phosphatase (38-126) U/L Total Protein (6.3-8.2) g/dL Albumin (3.5-5.0) g/dL 09/08/17 09/08/17 09/08/17 Range/Units 01:10 02:10 03:09 RBC (4.30-5.90) m/uL Hgb (13.0-17.5) gm/dL Hct (39.0-53.0) % MCV (80.0-100.0) fL Plt Count (150-450) k/uL Lymphocytes # (1.0-4.8) k/uL Glucose (74-99) mg/dL POC Glucose (mg/dL) 108 H 111 H 127 H (75-99) mg/dL Calcium (8.4-10.2) mg/dL Total Bilirubin (0.2-1.3) mg/dL Alkaline Phosphatase (38-126) U/L Total Protein (6.3-8.2) g/dL Albumin (3.5-5.0) g/dL 09/08/17 09/08/17 09/08/17 Range/Units 04:05 04:05 04:05 RBC 2.75 L (4.30-5.90) m/uL Hgb 9.1 L (13.0-17.5) gm/dL Hct 29.3 L (39.0-53.0) % MCV 106.5 H (80.0-100.0) fL Plt Count 77 L (150-450) k/uL Lymphocytes # 0.7 L (1.0-4.8) k/uL Glucose 120 H (74-99) mg/dL POC Glucose (mg/dL) 129 H (75-99) mg/dL Calcium 8.1 L (8.4-10.2) mg/dL Total Bilirubin 1.6 H (0.2-1.3) mg/dL Alkaline Phosphatase 31 L (38-126) U/L Total Protein 4.8 L (6.3-8.2) g/dL Albumin 3.0 L (3.5-5.0) g/dL 09/08/17 09/08/17 09/08/17 Range/Units 05:36 06:22 07:07 RBC (4.30-5.90) m/uL Hgb (13.0-17.5) gm/dL Hct (39.0-53.0) % MCV (80.0-100.0) fL Plt Count (150-450) k/uL Lymphocytes # (1.0-4.8) k/uL Glucose (74-99) mg/dL POC Glucose (mg/dL) 119 H 123 H 129 H (75-99) mg/dL Calcium (8.4-10.2) mg/dL Total Bilirubin (0.2-1.3) mg/dL Alkaline Phosphatase (38-126) U/L Total Protein (6.3-8.2) g/dL Albumin (3.5-5.0) g/dL 09/08/17 Range/Units 07:45 RBC (4.30-5.90) m/uL Hgb (13.0-17.5) gm/dL Hct (39.0-53.0) % MCV (80.0-100.0) fL Plt Count (150-450) k/uL Lymphocytes # (1.0-4.8) k/uL Glucose (74-99) mg/dL POC Glucose (mg/dL) 116 H (75-99) mg/dL Calcium (8.4-10.2) mg/dL Total Bilirubin (0.2-1.3) mg/dL Alkaline Phosphatase (38-126) U/L Total Protein (6.3-8.2) g/dL Albumin (3.5-5.0) g/dL Assessment and Plan Assessment: #1 status post CABG for triple vessel coronary artery disease, postoperative day #2 #2 Exertional chest pain in a patient found to have significant coronary artery disease. Cardiac catheterization today revealed heavily calcified coronary arteries. He had significant 60-70% distal left main disease, significant 80% mid LAD disease and moderate 60-70% disease in the left circumflex. The plan is for coronary artery bypass grafting within the next 24-48 hours. #3 History of coronary artery disease with previous myocardial infarction and stent placement in 2001. 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 Held since 09/01/2017. #5 Remote history of approximately 30 years at 1 pack per day chronic tobacco dependence, however quit in 1997. #6 Diabetes mellitus, type II. #7 Hypertension. #7 Hyperlipidemia. # 9 Benign prostatic hypertrophy. # 10 History of colitis. # 11 Osteoarthritis with multiple orthopedic surgeries including bilateral knee replacements and cervical spine surgery. Eventually needing a right hip replacement as well. Recommendation: Continue present supportive care measures, incentive spirometry , bronchodilators, ambulation. Time with Patient: Less than 30
[2017-09-08 12:03] LABS: Glucose,Whole Blood 211 mg/dL (75-99)
[2017-09-08] MEDS: INSULIN ASPART 100 UNIT/ML 1 ML 10 ML VIAL SQ SCH ×4 (13:06→20:55)
[2017-09-08 17:24] LABS: Glucose,Whole Blood 164 mg/dL (75-99)
[2017-09-08 20:53] LABS: Glucose,Whole Blood 178 mg/dL (75-99)
[2017-09-08] MEDS: SENNOSIDES-DOCUSATE SODIUM 1 EACH TAB PO SCH (20:55)
[2017-09-08] MEDS: INSULIN NPH 300 UNIT/3 ML VIAL SQ SCH (20:56)
[2017-09-09] MEDS: HYDROcodone/APAP 5-325MG 1 EACH TAB PO PRN ×5 (03:11→21:31)
[2017-09-09 04:26] LABS: HCT 27.2 % (39.0-53.0); HGB 8.7 gm/dL (13.0-17.5); MCH 32.6 pg (25.0-35.0); Macrocytosis Slight; Mean Platelet Volume 7.6; Platelet Count 105 k/uL (150-450); RBC 2.67 m/uL (4.30-5.90); RDW 13.4 % (11.5-15.5)
[2017-09-09 04:39] LABS: ALT 39 U/L (21-72); AST 35 U/L (17-59); Alkaline Phosphatase 39 U/L (38-126); Anion Gap 6 mmol/L; Blood Urea Nitrogen 12 mg/dL (9-20); Carbon Dioxide 32 mmol/L (22-30); Chloride 100 mmol/L (98-107); Glucose 108 mg/dL (74-99); Magnesium 2.2 mg/dL (1.6-2.3); Potassium 3.8 mmol/L (3.5-5.1); Sodium 138 mmol/L (137-145); Total Protein 4.9 g/dL (6.3-8.2)
[2017-09-09 06:54] LABS: Glucose,Whole Blood 105 mg/dL (75-99)
[2017-09-09] MEDS ORDERED: POTASSIUM CHLORIDE ER 20 MEQ TAB.ER PO SCH (07:00)
--- NOTE | 2017-09-09 08:34 | XR ---
EXAMINATION TYPE: XR chest 1V portable DATE OF EXAM: 09/09/2017 COMPARISON: 09/08/2017 HISTORY: Post cardiac surgery TECHNIQUE: Single frontal view of the chest is obtained. FINDINGS: Postoperative change and left-sided chest tube noted with no sizable pneumothorax bilatera l subsegmental consolidation small effusion greater on the left. Cardiomegaly stable. IMPRESSION: 1. Postoperative changes with persistent bilateral consolidation and small effusion.
[2017-09-09] MEDS: METOPROLOL TARTRATE 12.5 MG TAB PO SCH ×2 (08:56→21:30)
[2017-09-09] MEDS: ASPIRIN 81 MG PO SCH (08:56)
[2017-09-09] MEDS: INSULIN ASPART 100 UNIT/ML 1 ML 10 ML VIAL SQ SCH ×5 (08:56→17:43)
[2017-09-09] MEDS: HEPARIN SODIUM,PORCINE 5,000 UNIT/ML 1 ML VIAL SQ SCH ×2 (08:56→16:53)
[2017-09-09] MEDS: CLOPIDOGREL 75 MG TAB PO SCH (08:56)
[2017-09-09] MEDS: PANTOPRAZOLE 40 MG TABLET PO SCH (08:56)
[2017-09-09] MEDS: DOXAZOSIN 2 MG TAB PO SCH ×2 (08:56→21:30)
[2017-09-09] MEDS: MUPIROCIN 2% OINT 22 GM TUBE NASAL SCH ×3 (08:57→21:30)
[2017-09-09] MEDS: ATORVASTATIN 40 MG TAB PO SCH (08:57)
[2017-09-09] MEDS: INSULN ASP PRT/INSULIN ASPART 100 UNIT/ML 10 ML VIAL SQ SCH (09:02)
[2017-09-09] MEDS: sulfaSALAzine 500 MG TAB PO SCH (09:06)
[2017-09-09] MEDS: DOXAZOSIN 4 MG TAB PO SCH (09:07)
[2017-09-09] MEDS: ISOSORBIDE MONONITRATE ER 30 MG TAB.ER.24H PO SCH (09:07)
--- NOTE | 2017-09-09 09:44 | P.PN ---
Subjective Progress Note Date: 09/09/17 Principal diagnosis: Coronary artery disease with left main disease. Previous medical history of myocardial infarction with stent placement in 2001, hypertension, diabetes mellitus type 2 with current hemoglobin A1c 8.5%, hyperlipidemia, DVT of the left lower extremity in September 2016, previous tobacco dependence, family history of premature coronary artery disease with father from myocardial infarction at 49 years old, enlarged prostate, multiple orthopedic surgeries. POD #3 urgent coronary artery bypass grafting 3 vessels, left internal mammary artery to left anterior descending artery, reverse saphenous vein graft to the obtuse marginal artery, reverse saphenous vein graft to the posterior descending artery, endoscopic vein harvest of the right greater saphenous vein, epi-aortic ultrasound, intraoperative transesophageal echocardiogram. Patient's currently sitting up in a recliner in no acute distress. States sternal pain is well-controlled with ordered pain medication. No new concerns. Patient has ambulated. Objective - Vital Signs Vital signs: Vital Signs Temp 98.5 F 09/09/17 08:00 Pulse 82 09/09/17 08:00 Resp 17 09/09/17 08:00 BP 114/55 09/09/17 08:00 Pulse Ox 94 L 09/09/17 08:00 Intake & Output 09/08/17 09/09/17 09/09/17 18:59 06:59 18:59 Intake Total 1336 0 360 Output Total 2290 660 Balance -954 -660 360 Intake: IV 336 0 0.9 NaCl @ 30 ml/hr 90 0 0.9 NaCl for Pressure Bag 6 Lactated Ringers 1,000 ml 140 @ 10 mls/hr IV .Q24H PRN Rx#:[id number] Magnesium Sulfate-D5w Pmx 100 1 gm In Dextrose/Water 1 100ml.bag @ 100 mls/hr IVPB Q1H ASHLEY Rx#: [id number] Oral 1000 360 Output: Chest Tube Drainage 120 10 Bilateral Mediastinal 30 Left Lateral Chest 90 10 Drainage 0 Right Calf 0 Urine 2170 650 Other: Voiding Method Indwelling Catheter Urinal # Voids 2 ABP, PAP, CO, CI - Last Documented Arterial Blood Pressure 74/55 Pulmonary Artery Pressure 40/14 Cardiac Output 7.9 Cardiac Index 3.8 - Constitutional General appearance: Present: cooperative, no acute distress, obese - Respiratory Details: Lungs sounds diminished bilaterally. Respirations even, nonlabored. Currently on 2 L nasal cannula with oxygen saturations 96%. Able to achieve 1000 mL on his incentive spirometry. Left pleural chest tube to -20 cm wall suction, 10 mL serous drainage overnight, 150 mL the last 12 hours. No air leaks present. - Cardiovascular Details: S1, S2 present. Regular rate and rhythm, sinus rhythm on telemetry. A/V epicardial pacemaker wires present, grounded. Sternum stable. Palpable peripheral pulses bilaterally. No edema present. No calf pain or tenderness noted. Heart hugger in place with patient demonstrating appropriate use. Antiembolism stockings, SCDs present. - Gastrointestinal Gastrointestinal Comment(s): Abdomen soft, nontender, nondistended. Active bowel sounds 4 quadrants. Tolerating diet. - Genitourinary Genitourinary Comment(s): Continues to void clear, yellow urine. - Integumentary Integumentary Comment(s): Sternal incision well approximated Dermabond. Right lower extremity EVH site well approximated. Skin warm, dry, pink with evidence of good perfusion. - Neurologic Neurologic: Present: CNII-XII intact - Musculoskeletal Musculoskeletal: Present: gait normal, strength equal bilaterally - Psychiatric Psychiatric: Present: A&O x's 3, appropriate affect, intact judgment & insight - Allied health notes Allied health notes reviewed: nursing - Labs CBC & Chem 7: 09/09/17 03:44 09/09/17 03:44 Labs: Abnormal Lab Results - Last 24 Hours (Table) 09/08/17 09/08/17 09/08/17 Range/Units 12:00 17:23 20:50 RBC (4.30-5.90) m/uL Hgb (13.0-17.5) gm/dL Hct (39.0-53.0) % MCV (80.0-100.0) fL Plt Count (150-450) k/uL Carbon Dioxide (22-30) mmol/L Glucose (74-99) mg/dL POC Glucose (mg/dL) 211 H 164 H 178 H (75-99) mg/dL Calcium (8.4-10.2) mg/dL Total Protein (6.3-8.2) g/dL Albumin (3.5-5.0) g/dL 09/09/17 09/09/17 09/09/17 Range/Units 03:44 03:44 06:53 RBC 2.67 L (4.30-5.90) m/uL Hgb 8.7 L (13.0-17.5) gm/dL Hct 27.2 L (39.0-53.0) % MCV 102.0 H (80.0-100.0) fL Plt Count 105 L (150-450) k/uL Carbon Dioxide 32 H (22-30) mmol/L Glucose 108 H (74-99) mg/dL POC Glucose (mg/dL) 105 H (75-99) mg/dL Calcium 8.0 L (8.4-10.2) mg/dL Total Protein 4.9 L (6.3-8.2) g/dL Albumin 3.0 L (3.5-5.0) g/dL - Imaging and Cardiology Chest x-ray: report reviewed, image reviewed Assessment and Plan (1) Coronary artery disease Current Visit: Yes Status: Chronic Code(s): I25.10 - ATHSCL HEART DISEASE OF [place] CORONARY ARTERY W/O ANG PCTRS SNOMED Code(s): 52395577 (2) Hypertension Current Visit: Yes Status: Chronic Code(s): I10 - ESSENTIAL (PRIMARY) HYPERTENSION SNOMED Code(s): 91548757 (3) Diabetes mellitus type 2 in obese Current Visit: Yes Status: Chronic Code(s): E11.69 - TYPE 2 DIABETES MELLITUS WITH OTHER SPECIFIED COMPLICATION; E66.9 - OBESITY, UNSPECIFIED SNOMED Code(s): 81055990 (4) Family history of premature coronary artery disease Current Visit: Yes Status: Chronic Code(s): Z82.49 - FAMILY HX OF ISCHEM HEART DIS AND OTH DIS OF THE CIRC SYS SNOMED Code(s): 588173863 (5) Previous myocardial infarction older than 8 weeks Current Visit: No Status: Resolved Code(s): I25.2 - OLD MYOCARDIAL INFARCTION SNOMED Code(s): 2864666 (6) History of heart artery stent Current Visit: No Status: Resolved Code(s): Z95.5 - PRESENCE OF CORONARY ANGIOPLASTY IMPLANT AND GRAFT SNOMED Code(s): 014119900 (7) Hyperlipidemia Current Visit: Yes Status: Chronic Code(s): E78.5 - HYPERLIPIDEMIA, UNSPECIFIED SNOMED Code(s): 18344004 (8) History of DVT (deep vein thrombosis) Current Visit: No Status: Resolved Code(s): Z86.718 - PERSONAL HISTORY OF OTHER VENOUS THROMBOSIS AND EMBOLISM SNOMED Code(s): 432617573 (9) Arthritis Current Visit: Yes Status: Chronic Code(s): M19.90 - UNSPECIFIED OSTEOARTHRITIS, UNSPECIFIED SITE SNOMED Code(s): 3695941 (10) Tobacco dependence in remission Current Visit: No Status: Resolved Code(s): F17.201 - NICOTINE DEPENDENCE, UNSPECIFIED, IN REMISSION SNOMED Code(s): 173554917 (11) Obesity (BMI 30-39.9) Current Visit: Yes Status: Chronic Code(s): E66.9 - OBESITY, UNSPECIFIED SNOMED Code(s): 572581170 (12) Left main coronary artery disease Current Visit: Yes Status: Chronic Code(s): I25.10 - ATHSCL HEART DISEASE OF [place] CORONARY ARTERY W/O ANG PCTRS SNOMED Code(s): 321762718 Plan: 1. Continue baby aspirin, Plavix, statin, heparin subcu, beta tony. Will maximize beta tony therapy as tolerated. 2. Continue to hold Xarelto. 3. Wean O2 as tolerated. Encourage incentive spirometry use. 4. Increase activity, ambulate as tolerated. PT/OT/cardiac rehab following. 5. GI/DVT prophylaxis. 6. Left pleural chest tube discontinued without incident. Bilateral breath sounds equal, patient tolerated well. 7. Will monitor daily labs, x-rays. 8. Diabetic management per primary care service. 9. Transfer to E. selective care when bed available. 10. More recommendations to follow. Anticipate discharge to home in the next 24-48 hours. Time with Patient: Greater than 30
--- NOTE | 2017-09-09 10:31 | PN ---
PROGRESS NOTE Mr. Caceres is a 76-year-old male who is status post coronary artery bypass grafting. He is feeling quite well this morning. He continued to be in sinus mechanism. His breathing has been stable. He denies any dizziness or palpitation. He denies any nausea. He has been walking without much difficulty. He continues to be at this time on aspirin once a day, Lipitor 40 mg daily, Plavix 75 mg daily, Cardura 2 mg twice a day, metoprolol tartrate 12.5 mg twice a day. PHYSICAL EXAMINATION: Blood pressure 114/50 with the heart rate in the 80s. LUNGS: No wheezes. HEART: Regular rate and rhythm. S1, S2. No S3 with systolic murmur. ABDOMEN: Soft, obese, nontender. EXTREMITIES: +1 edema. LAB DATA: Lab data revealed a hemoglobin of 8.7. BUN and creatinine of 12 and 0.9. IMPRESSION: 1. Status post coronary artery bypass grafting, stable. 2. Hypertension. 3. Hyperlipidemia. 4. Diabetes mellitus. RECOMMENDATION: Patient will increase his activity. I am hopefully that he will be transferred to telemetry floor today. Increase his level activity and if he is stable, probably home soon. MMODL / IJN: [id number] /
--- NOTE | 2017-09-09 10:39 | P.PN ---
Subjective Progress Note Date: 09/09/17 Principal diagnosis: Severe coronary artery disease, status post three-vessel CABG, postop day 3 This is a very pleasant 76-year-old gentleman who follows with Dr. Jarett Oakley as his primary care physician. He has a history of diabetes mellitus, hyperlipidemia, hypertension, colitis, BPH, osteoarthritis with multiple surgeries including bilateral knee replacements. He also states his right hip is needing to be replaced. He was here in September 2016 with a left leg DVT and he remains on Xarelto. He has a remote history of chronic tobacco dependence for approximately 30 years. He did however quit in 1997. Denies having any pulmonary symptoms. He's never been on inhalers or oxygen the outpatient setting. He had not been seen by a language specialist in the past. He does have a history of coronary artery disease with previous myocardial infarction and stent placement in 2001. Since that time he had been doing quite well from the cardiac standpoint. Recently he had noticed some chest discomfort while shoveling snow and was seen by Dr. Oakley and subsequently with cardiology and was brought in for an outpatient cardiac catheterization today. Xarelto was stopped on 09/01/2017. He was found to have heavily calcified coronary arteries. He had significant 60-70% distal left main disease, significant 80% mid LAD disease and moderate 60-70% disease in the left circumflex. The plan is for coronary artery bypass grafting within the next 24- 48 hours. He is seen today in consultation on the selective care unit. He is resting flat in bed. He is awake and alert in no acute distress. He denies any shortness of breath, cough or congestion. No chest discomfort currently stating he has not had any since starting isosorbide mononitrate. He remains hemodynamically stable. Maintaining good O2 saturations in the mid to upper 90s on room air. Patient was reevaluated today on 09/05/2017, doing well, relatively asymptomatic , Xarelto remains on hold, and the patient is scheduled to undergo myocardial revascularization tomorrow in a.m. Pulmonary-eng, no cough no wheezing no shortness of breath. Labs were reviewed, relatively normal electrolytes are normal CBC noted. Chest x-ray showed no acute process. Bedside PFT is pending. Patient was reevaluated today on 09/06/2017, patient just came back from surgery , he underwent myocardial revascularization earlier, and he is back in the ICU on mechanical ventilation. His vent settings are FiO2 of 100%, PEEP of 5, SIMV of 14 and tidal volume of 500. ABG is pending, chest x-ray showed postoperative changes, endotracheal tube is almost in the right mainstem bronchus, it is at the level of the zoe. Hence it would be pulled up about to see him from present placement. Labs from earlier today showed relatively normal CBC, normal electrolytes are normal renal profile. Patient is presently sedated, on mechanical ventilation. Reevaluated today on 09/07/2017, patient was extubated last night shortly after his surgery, tolerated the extubation well, presently on nasal cannula, in no distress. Patient is relatively asymptomatic. Chest x-ray showed mostly postoperative changes. CBC is relatively normal, hemoglobin is 10. Platelets are a bit low, at 86,000, basic metabolic profile is normal renal profile is normal. Reevaluated today on 09/08/2017, patient continues to do well, relatively asymptomatic.patient is sitting in a bedside chair, in no distress, and in no pain.hemoglobin is 9.1, normal basic metabolic profile was noted. Chest x-ray was also noted to be relatively unremarkable.except for postoperative changes as expected. On 09/09/2017 patient seen in follow-up on selective care unit. Sitting up in chair, doing well, denies any acute distress, does have some incisional pain, which is fairly well-controlled with current pain medications. Denies any shortness of breath, compliant with his incentive spirometer. Afebrile hemodynamically stable, and 2 L per nasal cannula with O2 sat between 94-96%. Lung sounds are clear to auscultation, no rhonchi no wheezes noted. His chest x -ray shows small bilateral pleural effusions and atelectasis bilaterally. No acute events overnight. His IV fluids have been hep-locked. Objective - Vital Signs Vital signs: Vital Signs Temp 98.5 F 09/09/17 08:00 Pulse 82 09/09/17 08:00 Resp 17 09/09/17 08:00 BP 114/55 09/09/17 08:00 Pulse Ox 94 L 09/09/17 08:00 Intake & Output 09/08/17 09/09/17 09/09/17 18:59 06:59 18:59 Intake Total 1336 0 360 Output Total 2290 660 Balance -954 -660 360 Intake: IV 336 0 0.9 NaCl @ 30 ml/hr 90 0 0.9 NaCl for Pressure Bag 6 Lactated Ringers 1,000 ml 140 @ 10 mls/hr IV .Q24H PRN Rx#:[id number] Magnesium Sulfate-D5w Pmx 100 1 gm In Dextrose/Water 1 100ml.bag @ 100 mls/hr IVPB Q1H A[facility]LEY Rx#: [id number] Oral 1000 360 Output: Chest Tube Drainage 120 10 Bilateral Mediastinal 30 Left Lateral Chest 90 10 Drainage 0 Right Calf 0 Urine 2170 650 Other: Voiding Method Indwelling Catheter Urinal # Voids 2 ABP, PAP, CO, CI - Last Documented Arterial Blood Pressure 74/55 Pulmonary Artery Pressure 40/14 Cardiac Output 7.9 Cardiac Index 3.8 - Exam GENERAL EXAM: Revealed a 76-year-old white male, on nasal cannula, in no distress. HEAD: Normocephalic. EYES: Normal reaction of pupils, equal size. NOSE: Clear with pink turbinates. THROAT: No erythema or exudates. NECK: No masses, no JVD. CHEST: No chest wall deformity. Midsternal incision is clean dry and intact, sternum stable. LUNGS: Equal air entry with no crackles, wheeze, rhonchi or dullness. CVS: S1 and S2 normal with no audible murmur, regular rhythm. ABDOMEN: No hepatosplenomegaly, normal bowel sounds, no guarding or rigidity. SPINE: No scoliosis or deformity SKIN: No rashes CENTRAL NERVOUS SYSTEM: Cannot be assessed, patient is fully sedated EXTREMITIES: There is no peripheral edema. No clubbing, no cyanosis. Peripheral pulses are intact. - Labs CBC & Chem 7: 09/09/17 03:44 09/09/17 03:44 Labs: Abnormal Lab Results - Last 24 Hours (Table) 09/08/17 09/08/17 09/08/17 Range/Units 12:00 17:23 20:50 RBC (4.30-5.90) m/uL Hgb (13.0-17.5) gm/dL Hct (39.0-53.0) % MCV (80.0-100.0) fL Plt Count (150-450) k/uL Carbon Dioxide (22-30) mmol/L Glucose (74-99) mg/dL POC Glucose (mg/dL) 211 H 164 H 178 H (75-99) mg/dL Calcium (8.4-10.2) mg/dL Total Protein (6.3-8.2) g/dL Albumin (3.5-5.0) g/dL 09/09/17 09/09/17 09/09/17 Range/Units 03:44 03:44 06:53 RBC 2.67 L (4.30-5.90) m/uL Hgb 8.7 L (13.0-17.5) gm/dL Hct 27.2 L (39.0-53.0) % MCV 102.0 H (80.0-100.0) fL Plt Count 105 L (150-450) k/uL Carbon Dioxide 32 H (22-30) mmol/L Glucose 108 H (74-99) mg/dL POC Glucose (mg/dL) 105 H (75-99) mg/dL Calcium 8.0 L (8.4-10.2) mg/dL Total Protein 4.9 L (6.3-8.2) g/dL Albumin 3.0 L (3.5-5.0) g/dL Assessment and Plan Plan: Assessment: #1 status post CABG for triple vessel coronary artery disease, postoperative day #2 #2 Exertional chest pain in a patient found to have significant coronary artery disease. Cardiac catheterization today revealed heavily calcified coronary arteries. He had significant 60-70% distal left main disease, significant 80% mid LAD disease and moderate 60-70% disease in the left circumflex. The plan is for coronary artery bypass grafting within the next 24-48 hours. #3 History of coronary artery disease with previous myocardial infarction and stent placement in 2001. 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 Held since 09/01/2017. #5 Remote history of approximately 30 years at 1 pack per day chronic tobacco dependence, however quit in 1997. #6 Diabetes mellitus, type II. #7 Hypertension. #7 Hyperlipidemia. # 9 Benign prostatic hypertrophy. # 10 History of colitis. # 11 Osteoarthritis with multiple orthopedic surgeries including bilateral knee replacements and cervical spine surgery. Eventually needing a right hip replacement as well. Recommendation: Today pulmonary toileting, continue encouraging. Remains hemodynamically stable , no acute events overnight. Continue with current medical treatment. Patient has been cleared for transfer to selective care unit today I performed a history & physical examination of the patient and discussed their management with my nurse practitioner, Dejah Ford. I reviewed the nurse practitioner's note and agree with the documented findings and plan of care. Lung sounds are clear. The findings and the impression was discussed with the patient. I attest to the documentation by the nurse practitioner. Time with Patient: Greater than 30
--- NOTE | 2017-09-09 10:53 | P.PN ---
Subjective Progress Note Date: 09/09/17 76-year-old male who sees Dr. Oakley in the outpatient setting. The patient has been having chest pain on and off for the last few months. He was referred to cardiology and underwent scheduled outpatient cardiac catheterization on 09/04/[address] Hermosillo and was found to have triple vessel disease including 60-70% stenosis of left main, 80% stenosis of mid LAD, 60-70% left circumflex artery, and 70% obtuse marginal branch. He was admitted to the selective care unit. Dr. Oakley was consulted for medical management. Dr. Chaudhary was consulted for myocardial revascularization. The patient has a history of coronary artery disease with previous stent placement in 2001, hypertension, hyperlipidemia, DVT of the left lower extremity in 2016 and was prescribed Xarelto. He has a family history of premature coronary artery disease. He is a former cigarette smoker and quit in 1997. 09/05/2017 The patient was seen and examined at the bedside this morning by Dr. Oakley. He states he is feeling relatively well at this time. He denies shortness of breath. Denies chest pain or pressure. His Xarelto remains on hold at this time. He is scheduled for CABG tomorrow 09/06/2017. He denies nausea or vomiting at this time. Denies pain or discomfort. His vital signs have remained stable. Blood pressure this morning was 122/67. His heart rate is in the 50s. He is afebrile with a temperature of 97.8. Chest x-ray completed on 09/04/2017 is negative for an acute process. Bilateral carotid Doppler was completed on 03/04/2018 which revealed no hemodynamic significant stenosis of the bilateral carotid arteries. He denies any further concerns or complaints at this time. 09/06/2017 Patient seen and examined at the bedside in the intensive care unit by Dr. Oakley. He is awake and alert. He remains NPO. He is scheduled for CABG this morning with Dr. Chaudhary. Blood sugars are ranging 134-189. He is currently on sliding scale coverage and will transition to insulin drip post-op. Denies chest pain or pressure. Denies shortness of breath. Denies nausea or vomiting. Denies pain or discomfort. Vital signs remain stable. Blood pressure is 131/80. Heart rate remains in the 50s. He is afebrile. 09/07/2017-Notes per covering provider 09/08/2017-Notes per covering provider 09/09/2017 Patient seen and examined at the bedside in the intensive care unit. He is postop day #3 from coronary artery bypass grafting surgery. He is currently laying in the bed. Denies pain or discomfort at this time. Denies chest pain or pressure. Denies shortness of breath. Heart hugger in place. Using incentive spirometer 10 times an hour while awake. He states he has been ambulating. Blood sugars are ranging from 105-211 for the past 24 hours. His insulin drip has been discontinued. He is currently on novolog sliding scale with meals, 43 units of 70/30 at breakfast, 11 units novolog at dinner, and 11 units NPH at HS ordered per CV service. He states he is tolerating PO intake without nausea or vomiting. Denies further concerns or complaints at this time. Objective - Vital Signs Vital signs: Vital Signs Temp 98.5 F 09/09/17 08:00 Pulse 82 09/09/17 08:00 Resp 17 09/09/17 08:00 BP 114/55 09/09/17 08:00 Pulse Ox 94 L 09/09/17 08:00 Intake & Output 09/08/17 09/09/17 09/09/17 18:59 06:59 18:59 Intake Total 1336 0 360 Output Total 2290 660 Balance -954 -660 360 Intake: IV 336 0 0.9 NaCl @ 30 ml/hr 90 0 0.9 NaCl for Pressure Bag 6 Lactated Ringers 1,000 ml 140 @ 10 mls/hr IV .Q24H PRN Rx#:[id number] Magnesium Sulfate-D5w Pmx 100 1 gm In Dextrose/Water 1 100ml.bag @ 100 mls/hr IVPB Q1H ASHLEY Rx#: [id number] Oral 1000 360 Output: Chest Tube Drainage 120 10 Bilateral Mediastinal 30 Left Lateral Chest 90 10 Drainage 0 Right Calf 0 Urine 2170 650 Other: Voiding Method Indwelling Catheter Urinal # Voids 2 ABP, PAP, CO, CI - Last Documented Arterial Blood Pressure 74/55 Pulmonary Artery Pressure 40/14 Cardiac Output 7.9 Cardiac Index 3.8 - Exam GENERAL: This is a 76-year-old male in no apparent distress at the time of examination. Pleasant and cooperative. HEENT: Head is atraumatic, normocephalic. Pupils are equal, round, and reactive to light. Sclerae anicteric. Conjunctivae are clear. Mucus membranes of the mouth are moist. Neck is supple. RESPIRATORY: Clear to ausculation, diminished at the bases. No wheezes, rales, or rhonchi. No use of accessory muscles. Patient maintaining oxygen saturation greater than 92%. No chest wall tenderness is noted on palpation or with deep breathing. CARDIOVASCULAR: Heart hugger in place. Regular rate and rhythm. S1 and S2 noted. No systolic or diastolic murmur auscultated. No JVD noted. No S3 or S4 noted. GASTROINTESTINAL: Obese, No distention noted. Abdomen soft and round. Normal active bowel sounds auscultated X 4 quadrants. No pain or tenderness noted upon palpation. INTEGUMENTARY: Midline sternal incision without drainage or erythema. No cyanosis. No jaundice. No rashes noted. No cellulitis noted. EXTREMITIES: GAUTAM hose and SCDs present bilaterally. 2+ peripheral pulses. No evidence of peripheral edema. No calf tenderness noted. NEUROLOGIC: Cranial nerves II-XII intact. PSYCHIATRIC: Awake, alert, and oriented X 3. Appropriate affect. Intact judgement and insight. - Labs CBC & Chem 7: 09/09/17 03:44 09/09/17 03:44 Labs: Abnormal Lab Results - Last 24 Hours (Table) 09/08/17 09/08/17 09/08/17 Range/Units 12:00 17:23 20:50 RBC (4.30-5.90) m/uL Hgb (13.0-17.5) gm/dL Hct (39.0-53.0) % MCV (80.0-100.0) fL Plt Count (150-450) k/uL Carbon Dioxide (22-30) mmol/L Glucose (74-99) mg/dL POC Glucose (mg/dL) 211 H 164 H 178 H (75-99) mg/dL Calcium (8.4-10.2) mg/dL Total Protein (6.3-8.2) g/dL Albumin (3.5-5.0) g/dL 09/09/17 09/09/17 09/09/17 Range/Units 03:44 03:44 06:53 RBC 2.67 L (4.30-5.90) m/uL Hgb 8.7 L (13.0-17.5) gm/dL Hct 27.2 L (39.0-53.0) % MCV 102.0 H (80.0-100.0) fL Plt Count 105 L (150-450) k/uL Carbon Dioxide 32 H (22-30) mmol/L Glucose 108 H (74-99) mg/dL POC Glucose (mg/dL) 105 H (75-99) mg/dL Calcium 8.0 L (8.4-10.2) mg/dL Total Protein 4.9 L (6.3-8.2) g/dL Albumin 3.0 L (3.5-5.0) g/dL Assessment and Plan Plan: ASSESSMENT: Complaints of intermittent chest pain 3 months, s/p cardiac catheterization on 09/04/2017 revealing 60-70% stenosis of left main, 80% stenosis of mid LAD, 60- 70% left circumflex artery, and 70% disease of obtuse marginal branch S/P coronary artery bypass grafting 3 vessels, left internal mammary artery to left anterior descending artery, reverse saphenous vein graft to the obtuse marginal artery, reverse saphenous vein graft to the posterior descending artery , POD #3 Coronary artery disease with previous myocardial infarction and stent placement History of deep vein thrombosis of left lower extremity, maintained on long- term anticoagulation with Xarelto, currently on hold Diabetes mellitus, type II, hemoglobin A1c 8.5% Essential hypertension Hyperlipidemia Family history of premature coronary artery disease Osteoarthritis History of nicotine dependence, in remission, patient quit smoking cigarettes in 1997 Obesity: BMI 37.6 PLAN: -Continue management per cardiothoracic service -Capillary blood glucose Accu-Cheks before meals and at bedtime -Continue novolog sliding scale AC/HS -Continue 43 units of 70/30 at breakfast, 11 units novolog at dinner, and 11 units NPH at HS ordered per CV service. -conservation educator on consult secondary to CABG and DM -Home meds as appropriate -Activity as tolerated -Encourage ambulation -Incentive spirometer 10 times an hour while awake -Pain control -Monitor labs -GI/DVT prophylaxis -Monitor vital signs and address as appropriate -Further recommendations pending patient's course Nurse practitioner note has been reviewed by physician. Signing provider agrees with the documented findings, assessment, and plan of care.
[2017-09-09 12:13] LABS: Glucose,Whole Blood 202 mg/dL (75-99)
[2017-09-09] MEDS ORDERED: POTASSIUM CHLORIDE ER 20 MEQ TAB.ER PO STA (13:09)
[2017-09-09 17:19] LABS: Glucose,Whole Blood 134 mg/dL (75-99)
[2017-09-09 21:16] LABS: Glucose,Whole Blood 104 mg/dL (75-99)
[2017-09-09] MEDS: SENNOSIDES-DOCUSATE SODIUM 1 EACH TAB PO SCH (21:30)
[2017-09-09] MEDS: INSULIN NPH 300 UNIT/3 ML VIAL SQ SCH (21:31)
[2017-09-10] MEDS: HEPARIN SODIUM,PORCINE 5,000 UNIT/ML 1 ML VIAL SQ SCH ×4 (00:12→23:32)
[2017-09-10] MEDS: INSULIN ASPART 100 UNIT/ML 1 ML 10 ML VIAL SQ SCH ×6 (00:14→21:10)
[2017-09-10 04:37] LABS: HCT 27.5 % (39.0-53.0); HGB 9.1 gm/dL (13.0-17.5); MCH 33.1 pg (25.0-35.0); MCHC 33.3 g/dL (31.0-37.0); MCV 99.3 fL (80.0-100.0); Mean Platelet Volume 8.4; Platelet Count 144 k/uL (150-450); RBC 2.76 m/uL (4.30-5.90); RDW 14.2 % (11.5-15.5)
[2017-09-10 05:16] LABS: ALT 59 U/L (21-72); AST 56 U/L (17-59); Albumin 3.2 g/dL (3.5-5.0); Alkaline Phosphatase 95 U/L (38-126); Anion Gap 9 mmol/L; Blood Urea Nitrogen 12 mg/dL (9-20); Calcium 8.4 mg/dL (8.4-10.2); Carbon Dioxide 30 mmol/L (22-30); Chloride 101 mmol/L (98-107); Glucose 94 mg/dL (74-99); Magnesium 2.1 mg/dL (1.6-2.3); Potassium 3.5 mmol/L (3.5-5.1); Sodium 140 mmol/L (137-145); Total Bilirubin 1.1 mg/dL (0.2-1.3); Total Protein 5.4 g/dL (6.3-8.2)
[2017-09-10 07:27] LABS: Glucose,Whole Blood 99 mg/dL (75-99)
--- NOTE | 2017-09-10 07:44 | XR ---
EXAMINATION TYPE: XR chest 2V DATE OF EXAM: 09/10/2017 COMPARISON: Prior chest x-ray 09/09/2017 HISTORY: Status post cardiac surgery TECHNIQUE: Frontal and lateral views of the chest are obtained. FINDINGS: Patient is post median sternotomy. Left-sided chest tube has been removed. Heart is enlarg ed. No sizable pneumothorax. Interstitium may be slightly improved. Atelectatic changes persist. Ther e is likely small left pleural effusion. IMPRESSION: Improvement in aeration, volume status. No evident complication status post chest tube r emoval.
--- NOTE | 2017-09-10 09:00 | P.PN ---
Subjective Progress Note Date: 09/10/17 Principal diagnosis: Status post bypass grafting Progress note dated 09/10/2017 This is a 76-year-old male who is postop day #4 status post bypass grafting. The patient is doing very very well. Had a known history of CAD. The patient also has a history of previous myocardial infarction with stent placement back in 2001, DVT of the left lower extremity, previous history of chronic tobacco dependence, diabetes mellitus, hypertension, hyperlipidemia, BPH, colitis, and DJD. The patient is doing much better. Feeling better. The patient is on 2 L nasal cannula. He's not receiving any IV fluids. Objective - Vital Signs Vital signs: Vital Signs Temp 98.3 F 09/10/17 04:00 Pulse 86 09/10/17 04:00 Resp 18 09/10/17 04:00 BP 118/60 09/10/17 04:00 Pulse Ox 95 09/10/17 07:45 Intake & Output 09/09/17 09/10/17 09/10/17 18:59 06:59 18:59 Intake Total 720 200 Output Total 800 2000 Balance -80 -1800 Weight 106.9 kg 106.9 kg Intake: Oral 720 200 Output: Urine 800 2000 Other: Voiding Method Urinal Urinal # Voids 2 ABP, PAP, CO, CI - Last Documented Arterial Blood Pressure 74/55 Pulmonary Artery Pressure 40/14 Cardiac Output 7.9 Cardiac Index 3.8 - Exam No acute distress, oriented 3. Nasal O2 in place running at 2 L/m. HEENT examination is grossly unremarkable. Mucous membranes are moist. No oral lesions. Neck supple. Full range of motion. No adenopathy thyromegaly or neck vein distention. Cardiovascular examination reveals regular rhythm rate. S1-S2 normal. No S3 or S4. No discernible murmur noted. Lungs reveal a few scattered rhonchi. No wheezes. No crackles. Breath sounds are diminished throughout. Breath sounds are equal bilaterally. Abdomen soft bowel sounds are heard. No masses or tenderness. Extremities are intact. No cyanosis clubbing or edema. Skin is without rash or lesion. Neurologic examination is brief but nonfocal. - Labs CBC & Chem 7: 09/10/17 04:18 09/10/17 04:18 Labs: Abnormal Lab Results - Last 24 Hours (Table) 09/09/17 09/09/17 09/09/17 Range/Units 12:10 17:17 21:15 RBC (4.30-5.90) m/uL Hgb (13.0-17.5) gm/dL Hct (39.0-53.0) % Plt Count (150-450) k/uL POC Glucose (mg/dL) 202 H 134 H 104 H (75-99) mg/dL Total Protein (6.3-8.2) g/dL Albumin (3.5-5.0) g/dL 09/10/17 09/10/17 Range/Units 04:18 04:18 RBC 2.76 L (4.30-5.90) m/uL Hgb 9.1 L (13.0-17.5) gm/dL Hct 27.5 L (39.0-53.0) % Plt Count 144 L (150-450) k/uL POC Glucose (mg/dL) (75-99) mg/dL Total Protein 5.4 L (6.3-8.2) g/dL Albumin 3.2 L (3.5-5.0) g/dL Assessment and Plan (1) Osteoarthritis Current Visit: Yes Status: Acute Code(s): M19.90 - UNSPECIFIED OSTEOARTHRITIS, UNSPECIFIED SITE SNOMED Code(s): 783604553 (2) BPH (benign prostatic hyperplasia) Current Visit: Yes Status: Acute Code(s): N40.0 - BENIGN PROSTATIC HYPERPLASIA WITHOUT LOWER URINRY TRACT SYMP SNOMED Code(s): 367619349 (3) DVT (deep venous thrombosis) Current Visit: Yes Status: Acute Code(s): I82.409 - ACUTE EMBOLISM AND THOMBOS UNSP DEEP VN UNSP LOWER EXTREMITY SNOMED Code(s): 707868047 (4) Myocardial infarction Current Visit: Yes Status: Acute Code(s): I21.9 - ACUTE MYOCARDIAL INFARCTION, UNSPECIFIED SNOMED Code(s): 38702495 (5) Status post aorto-coronary artery bypass graft Current Visit: Yes Status: Acute Code(s): Z95.1 - PRESENCE OF AORTOCORONARY BYPASS GRAFT SNOMED Code(s): 706873980 (6) Coronary artery disease Current Visit: Yes Status: Chronic Code(s): I25.10 - ATHSCL HEART DISEASE OF [place] CORONARY ARTERY W/O ANG PCTRS SNOMED Code(s): 08519883 (7) Diabetes mellitus type 2 in obese Current Visit: Yes Status: Chronic Code(s): E11.69 - TYPE 2 DIABETES MELLITUS WITH OTHER SPECIFIED COMPLICATION; E66.9 - OBESITY, UNSPECIFIED SNOMED Code(s): 45552691 (8) Family history of premature coronary artery disease Current Visit: Yes Status: Chronic Code(s): Z82.49 - FAMILY HX OF ISCHEM HEART DIS AND OTH DIS OF THE CIRC SYS SNOMED Code(s): 256435391 (9) Hyperlipidemia Current Visit: Yes Status: Chronic Code(s): E78.5 - HYPERLIPIDEMIA, UNSPECIFIED SNOMED Code(s): 07652921 (10) Hypertension Current Visit: Yes Status: Chronic Code(s): I10 - ESSENTIAL (PRIMARY) HYPERTENSION SNOMED Code(s): 01669749 (11) Left main coronary artery disease Current Visit: Yes Status: Chronic Code(s): I25.10 - ATHSCL HEART DISEASE OF [place] CORONARY ARTERY W/O [employer] PCTRS SNOMED Code(s): 772970176 (12) Obesity (BMI 30-39.9) Current Visit: Yes Status: Chronic Code(s): E66.9 - OBESITY, UNSPECIFIED SNOMED Code(s): 947766473 Plan: Plan dated 09/10/2017 The patient is doing well. The patient could probably move out of the intensive care unit. We'll leave that up to cardiology and cardiothoracic surgery. From the pulmonary standpoint, the patient is doing well. From our perspective the patient could be moved to the stepdown unit. Labs x-rays a medications are all reviewed. Time with Patient: Less than 30
[2017-09-10] MEDS: METOPROLOL TARTRATE 12.5 MG TAB PO SCH ×2 (09:07→21:11)
[2017-09-10] MEDS: metFORMIN 500 MG TAB PO SCH ×2 (09:07→17:17)
[2017-09-10] MEDS: PANTOPRAZOLE 40 MG TABLET PO SCH (09:07)
[2017-09-10] MEDS: CLOPIDOGREL 75 MG TAB PO SCH (09:08)
[2017-09-10] MEDS: ATORVASTATIN 40 MG TAB PO SCH (09:08)
[2017-09-10] MEDS: ASPIRIN 81 MG PO SCH (09:08)
[2017-09-10] MEDS: DOXAZOSIN 2 MG TAB PO SCH ×2 (09:08→21:11)
--- NOTE | 2017-09-10 09:41 | P.PN ---
Subjective Progress Note Date: 09/10/17 Principal diagnosis: Coronary artery disease with left main disease. Previous medical history of myocardial infarction with stent placement in 2001, hypertension, diabetes mellitus type 2 with admission hemoglobin A1c of 8.5%, hyperlipidemia, DVT of the left lower extremity in September 2016, previous tobacco dependence, family history of premature coronary artery disease with father from myocardial infarction at 49 years old, enlarged prostate, multiple orthopedic surgeries. POD #4 urgent coronary artery bypass grafting 3 vessels, left internal mammary artery to left anterior descending artery, reverse greater saphenous vein graft to the obtuse marginal artery, reverse greater saphenous vein graft to the posterior descending artery, endoscopic vein harvest of the right greater saphenous vein, epi-aortic ultrasound, intraoperative transesophageal echocardiogram performed by anesthesia. The patient is currently sitting up to bedside chair and is in no acute distress. Denies complaints of pain with rest, rates his pain 3 out of 10 on the pain scale with coughing. He reports that he ambulated in the ICU hallway twice yesterday 09/09/2017. Objective - Vital Signs Vital signs: Vital Signs Temp 98.3 F 09/10/17 04:00 Pulse 86 09/10/17 04:00 Resp 18 09/10/17 04:00 BP 118/60 09/10/17 04:00 Pulse Ox 95 09/10/17 07:45 Intake & Output 09/09/17 09/10/17 09/10/17 18:59 06:59 18:59 Intake Total 720 200 Output Total 800 2000 Balance -80 -1800 Weight 106.9 kg 106.9 kg Intake: Oral 720 200 Output: Urine 800 2000 Other: Voiding Method Urinal Urinal # Voids 2 ABP, PAP, CO, CI - Last Documented Arterial Blood Pressure 74/55 Pulmonary Artery Pressure 40/14 Cardiac Output 7.9 Cardiac Index 3.8 - Constitutional General appearance: Present: cooperative, no acute distress, obese - Neck Details: No JVD, no lymphadenopathy. Neck is supple. - Respiratory Details: Lung sounds essentially clear to his bilateral upper lobes, few scattered crackles to his bilateral bases. Respirations are symmetrical and nonlabored. Oxygen saturation are 96% on 2 L nasal cannula and 89-90% on room air at rest. Achieving 1000 mL on his incentive spirometry. - Cardiovascular Details: Regular rhythm and rate. S1 and S2 present, negative for S3, gallop or murmur. Sternum is stable. Atrial and ventricular epicardial pacemaker wires present and rounded. No edema present. Heart hugger is in place and he is demonstrating appropriate use. Knee-high GAUTAM hose and sequential compression devices in place to his bilateral lower extremities. - Gastrointestinal Gastrointestinal Comment(s): Abdomen is soft, nontender and nondistended. Active bowel sounds all 4 abdominal quadrants. Tolerating oral intake. - Genitourinary Genitourinary Comment(s): Adequate urine output. 800 mL output in the last 8 hours. Clear yellow urine. - Integumentary Integumentary Comment(s): Midline sternal incision clean dry and well approximated. Dermabond clean and dry. Right lower extremity EVH harvest site clean dry and well approximated. No drainage. - Neurologic Neurologic: Present: CNII-XII intact - Musculoskeletal Musculoskeletal: Present: gait normal, strength equal bilaterally - Psychiatric Psychiatric: Present: A&O x's 3, appropriate affect, intact judgment & insight - Allied health notes Allied health notes reviewed: nursing - Labs CBC & Chem 7: 09/10/17 04:18 09/10/17 04:18 Labs: Abnormal Lab Results - Last 24 Hours (Table) 09/09/17 09/09/17 09/09/17 Range/Units 12:10 17:17 21:15 RBC (4.30-5.90) m/uL Hgb (13.0-17.5) gm/dL Hct (39.0-53.0) % Plt Count (150-450) k/uL POC Glucose (mg/dL) 202 H 134 H 104 H (75-99) mg/dL Total Protein (6.3-8.2) g/dL Albumin (3.5-5.0) g/dL 09/10/17 09/10/17 Range/Units 04:18 04:18 RBC 2.76 L (4.30-5.90) m/uL Hgb 9.1 L (13.0-17.5) gm/dL Hct 27.5 L (39.0-53.0) % Plt Count 144 L (150-450) k/uL POC Glucose (mg/dL) (75-99) mg/dL Total Protein 5.4 L (6.3-8.2) g/dL Albumin 3.2 L (3.5-5.0) g/dL - Imaging and Cardiology Chest x-ray: report reviewed, image reviewed Assessment and Plan (1) History of DVT of lower extremity Current Visit: Yes Status: Acute Code(s): Z86.718 - PERSONAL HISTORY OF OTHER VENOUS THROMBOSIS AND EMBOLISM SNOMED Code(s): 143835846 (2) Previous myocardial infarction older than 8 weeks Current Visit: Yes Status: Acute Code(s): I25.2 - OLD MYOCARDIAL INFARCTION SNOMED Code(s): 9209284 (3) History of heart artery stent Current Visit: Yes Status: Acute Code(s): Z95.5 - PRESENCE OF CORONARY ANGIOPLASTY IMPLANT AND GRAFT SNOMED Code(s): 050000740 (4) Tobacco dependence in remission Current Visit: Yes Status: Acute Code(s): F17.201 - NICOTINE DEPENDENCE, UNSPECIFIED, IN REMISSION SNOMED Code(s): 314708703 (5) BPH (benign prostatic hyperplasia) Current Visit: Yes Status: Acute Code(s): N40.0 - BENIGN PROSTATIC HYPERPLASIA WITHOUT LOWER URINRY TRACT SYMP SNOMED Code(s): 439402304 (6) Status post aorto-coronary artery bypass graft Current Visit: Yes Status: Acute Code(s): Z95.1 - PRESENCE OF AORTOCORONARY BYPASS GRAFT SNOMED Code(s): 528696246 (7) Arthritis Current Visit: Yes Status: Chronic Code(s): M19.90 - UNSPECIFIED OSTEOARTHRITIS, UNSPECIFIED SITE SNOMED Code(s): 7609757 (8) Coronary artery disease Current Visit: Yes Status: Chronic Code(s): I25.10 - ATHSCL HEART DISEASE OF [place] CORONARY ARTERY W/O ANG PCTRS SNOMED Code(s): 87639261 (9) Diabetes mellitus type 2 in obese Current Visit: Yes Status: Chronic Code(s): E11.69 - TYPE 2 DIABETES MELLITUS WITH OTHER SPECIFIED COMPLICATION; E66.9 - OBESITY, UNSPECIFIED SNOMED Code(s): 63783138 (10) Family history of premature coronary artery disease Current Visit: Yes Status: Chronic Code(s): Z82.49 - FAMILY HX OF ISCHEM HEART DIS AND OTH DIS OF THE CIRC SYS SNOMED Code(s): 520935851 (11) Hyperlipidemia Current Visit: Yes Status: Chronic Code(s): E78.5 - HYPERLIPIDEMIA, UNSPECIFIED SNOMED Code(s): 20067621 (12) Hypertension Current Visit: Yes Status: Chronic Code(s): I10 - ESSENTIAL (PRIMARY) HYPERTENSION SNOMED Code(s): 62291780 (13) Left main coronary artery disease Current Visit: Yes Status: Chronic Code(s): I25.10 - ATHSCL HEART DISEASE OF [place] CORONARY ARTERY W/O ANG PCTRS SNOMED Code(s): 124062561 (14) Obesity (BMI 30-39.9) Current Visit: Yes Status: Chronic Code(s): E66.9 - OBESITY, UNSPECIFIED SNOMED Code(s): 154092859 Plan: 1. Continue baby aspirin, Plavix, statin, heparin subcu, beta tony. Will maximize beta tony therapy as tolerated. 2. Continue to hold Xarelto, we will reevaluate prior to discharge. 3. Wean O2 as tolerated. Encourage incentive spirometry use every hour while awake. 4. Increase activity, ambulate as tolerated. PT/OT/cardiac rehab following. 5. GI/DVT prophylaxis. 6. We will remove his epicardial pacemaker wires today and he will be on bed rest for 1 hour post epicardial pacemaker wire removal. 7. Will monitor daily labs, x-rays. Replace potassium of 3.5 per potassium replacement protocol. 8. Diabetic management per primary care service. 9. Transfer to E. selective care when bed available. 10. Lasix 40 mg IV twice a day 4 doses then Discontinue. 11. More recommendations to follow. Anticipate discharge to home in the next 24-48 hours. Time with Patient: Greater than 30
[2017-09-10] MEDS: POTASSIUM CHLORIDE ER 20 MEQ TAB.ER PO SCH ×2 (09:51→11:40)
[2017-09-10] MEDS: FUROSEMIDE 10 MG/ML 4 ML VIAL IV SCH ×2 (09:52→21:12)
--- NOTE | 2017-09-10 10:00 | PN ---
PROGRESS NOTE Mr. Caceres is a 76-year-old male, status post bypass grafting. He is do well this morning. He is complaining of some soreness in the chest, but otherwise continued in sinus mechanism. His breathing has been stable. He denies any dizziness, palpitation. He denies any nausea. His blood pressure is stable. He has been using his incentive spirometry. He is continued on aspirin once a day, Lipitor 40 mg daily, Plavix 75 mg daily, Doxazosin 2 mg twice a day and metformin 500 mg twice a day, metoprolol tartrate 12.5 mg twice a day. PHYSICAL EXAMINATION: Blood pressure 118/60 with a heart rate in the 80s lungs no wheezes. HEART: Regular rate and rhythm. HEART: S1, S2. No S3. No rub. ABDOMEN: Soft, nontender. EXTREMITIES: Trace to 1+ edema. LAB DATA: BUN and creatinine 12 and 0.9, hemoglobin of 9.1. IMPRESSION: 1. Status post coronary artery bypass grafting, stable. 2. History of hyperlipidemia. 3. Diabetes mellitus. RECOMMENDATION: Patient is stable from the cardiac standpoint. He hopefully will be transferred to telemetry floor today. His level of activity will be increased and depending on his progress, further recommendations will be made. MMODL / IJN: [id number] /
[2017-09-10] MEDS: INSULN ASP PRT/INSULIN ASPART 100 UNIT/ML 10 ML VIAL SQ SCH (10:49)
--- NOTE | 2017-09-10 11:25 | P.PN ---
Subjective Progress Note Date: 09/10/17 76-year-old male who sees Dr. Oakley in the outpatient setting. The patient has been having chest pain on and off for the last few months. He was referred to cardiology and underwent scheduled outpatient cardiac catheterization on 09/04/[address] Hermosillo and was found to have triple vessel disease including 60-70% stenosis of left main, 80% stenosis of mid LAD, 60-70% left circumflex artery, and 70% obtuse marginal branch. He was admitted to the selective care unit. Dr. Oakley was consulted for medical management. Dr. Chaudhary was consulted for myocardial revascularization. The patient has a history of coronary artery disease with previous stent placement in 2001, hypertension, hyperlipidemia, DVT of the left lower extremity in 2016 and was prescribed Xarelto. He has a family history of premature coronary artery disease. He is a former cigarette smoker and quit in 1997. 09/05/2017 The patient was seen and examined at the bedside this morning by Dr. Oakley. He states he is feeling relatively well at this time. He denies shortness of breath. Denies chest pain or pressure. His Xarelto remains on hold at this time. He is scheduled for CABG tomorrow 09/06/2017. He denies nausea or vomiting at this time. Denies pain or discomfort. His vital signs have remained stable. Blood pressure this morning was 122/67. His heart rate is in the 50s. He is afebrile with a temperature of 97.8. Chest x-ray completed on 09/04/2017 is negative for an acute process. Bilateral carotid Doppler was completed on 03/04/2018 which revealed no hemodynamic significant stenosis of the bilateral carotid arteries. He denies any further concerns or complaints at this time. 09/06/2017 Patient seen and examined at the bedside in the intensive care unit by Dr. Oakley. He is awake and alert. He remains NPO. He is scheduled for CABG this morning with Dr. Chaudhary. Blood sugars are ranging 134-189. He is currently on sliding scale coverage and will transition to insulin drip post-op. Denies chest pain or pressure. Denies shortness of breath. Denies nausea or vomiting. Denies pain or discomfort. Vital signs remain stable. Blood pressure is 131/80. Heart rate remains in the 50s. He is afebrile. 09/07/2017-Notes per covering provider 09/08/2017-Notes per covering provider 09/09/2017 Patient seen and examined at the bedside in the intensive care unit. He is postop day #3 from coronary artery bypass grafting surgery. He is currently laying in the bed. Denies pain or discomfort at this time. Denies chest pain or pressure. Denies shortness of breath. Heart hugger in place. Using incentive spirometer 10 times an hour while awake. He states he has been ambulating. Blood sugars are ranging from 105-211 for the past 24 hours. His insulin drip has been discontinued. He is currently on novolog sliding scale with meals, 43 units of 70/30 at breakfast, 11 units novolog at dinner, and 11 units NPH at HS ordered per CV service. He states he is tolerating PO intake without nausea or vomiting. Denies further concerns or complaints at this time. 09/10/2017 Patient seen and examined at the bedside. Patient states his pain is well controlled at this time. Denies shortness of breath. Denies chest pain or pressure. Reports he is using his IS ten times an hour. He has been ambulating in the hallways. His blood sugars are ranging from 99-134. He on novolog sliding scale with meals, 43 units of 70/30 at breakfast, 11 units novolog at dinner, and 11 units NPH at HS ordered per CV service. Vital signs remain stable. Objective - Vital Signs Vital signs: Vital Signs Temp 98.4 F 09/10/17 08:00 Pulse 81 09/10/17 08:00 Resp 20 09/10/17 08:00 BP 111/53 09/10/17 08:00 Pulse Ox 94 L 09/10/17 08:00 Intake & Output 09/09/17 09/10/17 09/10/17 18:59 06:59 18:59 Intake Total 720 200 240 Output Total 800 1999 Balance -80 -1800 40 Weight 106.9 kg 106.9 kg Intake: Oral 720 200 240 Output: Urine 800 1999 Other: Voiding Method Urinal Urinal Urinal # Voids 2 ABP, PAP, CO, CI - Last Documented Arterial Blood Pressure 74/55 Pulmonary Artery Pressure 40/14 Cardiac Output 7.9 Cardiac Index 3.8 - Exam GENERAL: This is a 76-year-old male in no apparent distress at the time of examination. Pleasant and cooperative. HEENT: Head is atraumatic, normocephalic. Pupils are equal, round, and reactive to light. Sclerae anicteric. Conjunctivae are clear. Mucus membranes of the mouth are moist. Neck is supple. RESPIRATORY: Clear to ausculation, diminished at the bases with a few crackles. No use of accessory muscles. Patient maintaining oxygen saturation greater than 92%. No chest wall tenderness is noted on palpation or with deep breathing. CARDIOVASCULAR: Heart hugger in place. Regular rate and rhythm. S1 and S2 noted. No systolic or diastolic murmur auscultated. No JVD noted. No S3 or S4 noted. GASTROINTESTINAL: Obese, No distention noted. Abdomen soft and round. Normal active bowel sounds auscultated X 4 quadrants. No pain or tenderness noted upon palpation. INTEGUMENTARY: Midline sternal incision without drainage or erythema. No cyanosis. No jaundice. No rashes noted. No cellulitis noted. EXTREMITIES: GAUTAM hose and SCDs present bilaterally. 2+ peripheral pulses. No evidence of peripheral edema. No calf tenderness noted. NEUROLOGIC: Cranial nerves II-XII intact. PSYCHIATRIC: Awake, alert, and oriented X 3. Appropriate affect. Intact judgement and insight. - Labs CBC & Chem 7: 09/10/17 04:18 09/10/17 04:18 Labs: Abnormal Lab Results - Last 24 Hours (Table) 09/09/17 09/09/17 09/09/17 Range/Units 12:10 17:17 21:15 RBC (4.30-5.90) m/uL Hgb (13.0-17.5) gm/dL Hct (39.0-53.0) % Plt Count (150-450) k/uL POC Glucose (mg/dL) 202 H 134 H 104 H (75-99) mg/dL Total Protein (6.3-8.2) g/dL Albumin (3.5-5.0) g/dL 09/10/17 09/10/17 Range/Units 04:18 04:18 RBC 2.76 L (4.30-5.90) m/uL Hgb 9.1 L (13.0-17.5) gm/dL Hct 27.5 L (39.0-53.0) % Plt Count 144 L (150-450) k/uL POC Glucose (mg/dL) (75-99) mg/dL Total Protein 5.4 L (6.3-8.2) g/dL Albumin 3.2 L (3.5-5.0) g/dL Assessment and Plan Plan: ASSESSMENT: Complaints of intermittent chest pain 3 months, s/p cardiac catheterization on 09/04/2017 revealing 60-70% stenosis of left main, 80% stenosis of mid LAD, 60- 70% left circumflex artery, and 70% disease of obtuse marginal branch S/P coronary artery bypass grafting 3 vessels, left internal mammary artery to left anterior descending artery, reverse saphenous vein graft to the obtuse marginal artery, reverse saphenous vein graft to the posterior descending artery , POD #4 Coronary artery disease with previous myocardial infarction and stent placement History of deep vein thrombosis of left lower extremity, maintained on long- term anticoagulation with Xarelto, currently on hold Diabetes mellitus, type II, hemoglobin A1c 8.5% Essential hypertension Hyperlipidemia Family history of premature coronary artery disease Osteoarthritis History of nicotine dependence, in remission, patient quit smoking cigarettes in 1997 Obesity: BMI 37.6 PLAN: -Continue management per cardiothoracic service -Transfer to selective care unit today -Capillary blood glucose Accu-Cheks before meals and at bedtime -Continue novolog sliding scale AC/HS -Continue 43 units of 70/30 at breakfast, 11 units novolog at dinner, and 11 units NPH at HS ordered per CV service. -iap displays analyst on consult secondary to CABG and DM -Home meds as appropriate -Activity as tolerated -Encourage ambulation -Incentive spirometer 10 times an hour while awake -Pain control -Monitor labs -GI/DVT prophylaxis -Monitor vital signs and address as appropriate -Further recommendations pending patient's course Nurse practitioner note has been reviewed by physician. Signing provider agrees with the documented findings, assessment, and plan of care.
[2017-09-10 12:18] LABS: Glucose,Whole Blood 186 mg/dL (75-99)
[2017-09-10 17:00] LABS: Glucose,Whole Blood 179 mg/dL (75-99)
[2017-09-10] MEDS: HYDROcodone/APAP 5-325MG 1 EACH TAB PO PRN (17:21)
[2017-09-10] MEDS ORDERED: ALPRAZolam 0.5 MG TAB PO SCH (21:00)
[2017-09-10] MEDS: SENNOSIDES-DOCUSATE SODIUM 1 EACH TAB PO SCH (21:10)
[2017-09-10] MEDS: INSULIN NPH 300 UNIT/3 ML VIAL SQ SCH (21:10)
[2017-09-10 21:12] LABS: Glucose,Whole Blood 127 mg/dL (75-99)
[2017-09-11 02:12] LABS: Glucose,Whole Blood 125 mg/dL (75-99)
[2017-09-11 05:53] LABS: Basophils % (A) 0 %; Eosinophils # (A) 0.1 k/uL (0-0.7); Eosinophils % (A) 2 %; HCT 27.1 % (39.0-53.0); HGB 8.6 gm/dL (13.0-17.5); Lymphocytes # (A) 1.2 k/uL (1.0-4.8); Lymphocytes % (A) 24 %; MCH 31.7 pg (25.0-35.0); MCHC 31.6 g/dL (31.0-37.0); MCV 100.4 fL (80.0-100.0); Mean Platelet Volume 7.5; Monocytes # (A) 0.4 k/uL (0-1.0); Monocytes % (A) 8 %; Neutrophils # (A) 3.2 k/uL (1.3-7.7); Neutrophils % (A) 63 %; Platelet Count 188 k/uL (150-450); RDW 13.3 % (11.5-15.5); WBC 5.1 k/uL (3.8-10.6)
[2017-09-11 06:05] LABS: ALT 85 U/L (21-72); AST 66 U/L (17-59); Albumin 3.2 g/dL (3.5-5.0); Alkaline Phosphatase 112 U/L (38-126); Anion Gap 7 mmol/L; Blood Urea Nitrogen 14 mg/dL (9-20); Calcium 8.4 mg/dL (8.4-10.2); Carbon Dioxide 32 mmol/L (22-30); Chloride 100 mmol/L (98-107); Glucose 107 mg/dL (74-99); Sodium 139 mmol/L (137-145); Total Protein 5.2 g/dL (6.3-8.2)
[2017-09-11 06:26] LABS: Glucose,Whole Blood 102 mg/dL (75-99)
[2017-09-11] MEDS: INSULIN ASPART 100 UNIT/ML 1 ML 10 ML VIAL SQ SCH ×2 (06:29→12:07)
[2017-09-11] MEDS: INSULN ASP PRT/INSULIN ASPART 100 UNIT/ML 10 ML VIAL SQ SCH (07:03)
[2017-09-11] MEDS: metFORMIN 500 MG TAB PO SCH (07:04)
[2017-09-11] MEDS: PANTOPRAZOLE 40 MG TABLET PO SCH (07:04)
[2017-09-11] MEDS: HYDROcodone/APAP 5-325MG 1 EACH TAB PO PRN ×2 (08:35→16:16)
[2017-09-11] MEDS: HEPARIN SODIUM,PORCINE 5,000 UNIT/ML 1 ML VIAL SQ SCH (09:17)
[2017-09-11] MEDS: CLOPIDOGREL 75 MG TAB PO SCH (09:18)
[2017-09-11] MEDS: ATORVASTATIN 40 MG TAB PO SCH ×2 (09:18→09:19)
[2017-09-11] MEDS: ASPIRIN 81 MG PO SCH (09:18)
[2017-09-11] MEDS: FUROSEMIDE 10 MG/ML 4 ML VIAL IV SCH (09:19)
[2017-09-11] MEDS: DOXAZOSIN 2 MG TAB PO SCH (09:19)
[2017-09-11] MEDS: METOPROLOL TARTRATE 12.5 MG TAB PO SCH (09:20)
--- NOTE | 2017-09-11 09:23 | P.PN ---
Subjective Progress Note Date: 09/11/17 76-year-old male who sees Dr. Oakley in the outpatient setting. The patient has been having chest pain on and off for the last few months. He was referred to cardiology and underwent scheduled outpatient cardiac catheterization on 09/04/[address] Hermosillo and was found to have triple vessel disease including 60-70% stenosis of left main, 80% stenosis of mid LAD, 60-70% left circumflex artery, and 70% obtuse marginal branch. He was admitted to the selective care unit. Dr. Oakley was consulted for medical management. Dr. Chaudhary was consulted for myocardial revascularization. The patient has a history of coronary artery disease with previous stent placement in 2001, hypertension, hyperlipidemia, DVT of the left lower extremity in 2016 and was prescribed Xarelto. He has a family history of premature coronary artery disease. He is a former cigarette smoker and quit in 1997. 09/05/2017 The patient was seen and examined at the bedside this morning by Dr. Oakley. He states he is feeling relatively well at this time. He denies shortness of breath. Denies chest pain or pressure. His Xarelto remains on hold at this time. He is scheduled for CABG tomorrow 09/06/2017. He denies nausea or vomiting at this time. Denies pain or discomfort. His vital signs have remained stable. Blood pressure this morning was 122/67. His heart rate is in the 50s. He is afebrile with a temperature of 97.8. Chest x-ray completed on 09/04/2017 is negative for an acute process. Bilateral carotid Doppler was completed on 03/04/2018 which revealed no hemodynamic significant stenosis of the bilateral carotid arteries. He denies any further concerns or complaints at this time. 09/06/2017 Patient seen and examined at the bedside in the intensive care unit by Dr. Oakley. He is awake and alert. He remains NPO. He is scheduled for CABG this morning with Dr. Chaudhary. Blood sugars are ranging 134-189. He is currently on sliding scale coverage and will transition to insulin drip post-op. Denies chest pain or pressure. Denies shortness of breath. Denies nausea or vomiting. Denies pain or discomfort. Vital signs remain stable. Blood pressure is 131/80. Heart rate remains in the 50s. He is afebrile. 09/07/2017-Notes per covering provider 09/08/2017-Notes per covering provider 09/09/2017 Patient seen and examined at the bedside in the intensive care unit. He is postop day #3 from coronary artery bypass grafting surgery. He is currently laying in the bed. Denies pain or discomfort at this time. Denies chest pain or pressure. Denies shortness of breath. Heart hugger in place. Using incentive spirometer 10 times an hour while awake. He states he has been ambulating. Blood sugars are ranging from 105-211 for the past 24 hours. His insulin drip has been discontinued. He is currently on novolog sliding scale with meals, 43 units of 70/30 at breakfast, 11 units novolog at dinner, and 11 units NPH at HS ordered per CV service. He states he is tolerating PO intake without nausea or vomiting. Denies further concerns or complaints at this time. 09/10/2017 Patient seen and examined at the bedside. Patient states his pain is well controlled at this time. Denies shortness of breath. Denies chest pain or pressure. Reports he is using his IS ten times an hour. He has been ambulating in the hallways. His blood sugars are ranging from 99-134. He on novolog sliding scale with meals, 43 units of 70/30 at breakfast, 11 units novolog at dinner, and 11 units NPH at HS ordered per CV service. Vital signs remain stable. 09/11/2017 Patient seen and examined at the bedside on rounds with Dr. Oakley. He has been moved to the selective care unit. He is sitting up in the chair. Ate 100% of his breakfast. States he has been ambulating in the hallways. Denies chest pain or pressure. Denies shortness of breath. Using incentive spirometer 10 times an hour while awake. He was started back on his Metformin yesterday per Dr. Oakley. He also remains on insulin coverage at this time. Blood sugars running 102-127. Objective - Vital Signs Vital signs: Vital Signs Temp 98.5 F 09/11/17 08:19 Pulse 96 09/11/17 08:19 Resp 17 09/11/17 08:19 BP 116/74 09/11/17 08:19 Pulse Ox 96 09/11/17 04:00 Intake & Output 09/10/17 09/11/17 09/11/17 18:59 06:59 18:59 Intake Total 720 120 490 Output Total 1100 1125 460 Balance -380 -1005 30 Weight 102.4 kg Intake: Oral 720 120 490 Output: Urine 1100 1125 460 Other: Voiding Method Urinal Urinal # Voids 1 1 # Bowel Movements 0 ABP, PAP, CO, CI - Last Documented Arterial Blood Pressure 74/55 Pulmonary Artery Pressure 40/14 Cardiac Output 7.9 Cardiac Index 3.8 - Exam GENERAL: This is a 76-year-old male in no apparent distress at the time of examination. Pleasant and cooperative. HEENT: Head is atraumatic, normocephalic. Pupils are equal, round, and reactive to light. Sclerae anicteric. Conjunctivae are clear. Mucus membranes of the mouth are moist. Neck is supple. RESPIRATORY: Clear to ausculation, diminished at the bases with a few crackles. No use of accessory muscles. Patient maintaining oxygen saturation greater than 92%. No chest wall tenderness is noted on palpation or with deep breathing. CARDIOVASCULAR: Heart hugger in place. Regular rate and rhythm. S1 and S2 noted. No systolic or diastolic murmur auscultated. No JVD noted. No S3 or S4 noted. GASTROINTESTINAL: Obese, No distention noted. Abdomen soft and round. Normal active bowel sounds auscultated X 4 quadrants. No pain or tenderness noted upon palpation. INTEGUMENTARY: Midline sternal incision without drainage or erythema. No cyanosis. No jaundice. No rashes noted. No cellulitis noted. EXTREMITIES: GAUTAM hose and SCDs present bilaterally. 2+ peripheral pulses. No evidence of peripheral edema. No calf tenderness noted. NEUROLOGIC: Cranial nerves II-XII intact. PSYCHIATRIC: Awake, alert, and oriented X 3. Appropriate affect. Intact judgement and insight. - Labs CBC & Chem 7: 09/11/17 05:30 09/11/17 05:30 Labs: Abnormal Lab Results - Last 24 Hours (Table) 09/10/17 09/10/17 09/10/17 Range/Units 11:52 16:36 21:02 RBC (4.30-5.90) m/uL Hgb (13.0-17.5) gm/dL Hct (39.0-53.0) % MCV (80.0-100.0) fL Carbon Dioxide (22-30) mmol/L Glucose (74-99) mg/dL POC Glucose (mg/dL) 186 H 179 H 127 H (75-99) mg/dL AST (17-59) U/L ALT (21-72) U/L Total Protein (6.3-8.2) g/dL Albumin (3.5-5.0) g/dL 09/11/17 09/11/17 09/11/17 Range/Units 02:07 05:30 05:30 RBC 2.70 L (4.30-5.90) m/uL Hgb 8.6 L (13.0-17.5) gm/dL Hct 27.1 L (39.0-53.0) % MCV 100.4 H (80.0-100.0) fL Carbon Dioxide 32 H (22-30) mmol/L Glucose 107 H (74-99) mg/dL POC Glucose (mg/dL) 125 H (75-99) mg/dL AST 66 H (17-59) U/L ALT 85 H (21-72) U/L Total Protein 5.2 L (6.3-8.2) g/dL Albumin 3.2 L (3.5-5.0) g/dL 09/11/17 Range/Units 05:51 RBC (4.30-5.90) m/uL Hgb (13.0-17.5) gm/dL Hct (39.0-53.0) % MCV (80.0-100.0) fL Carbon Dioxide (22-30) mmol/L Glucose (74-99) mg/dL POC Glucose (mg/dL) 102 H (75-99) mg/dL AST (17-59) U/L ALT (21-72) U/L Total Protein (6.3-8.2) g/dL Albumin (3.5-5.0) g/dL Assessment and Plan Plan: ASSESSMENT: Complaints of intermittent chest pain 3 months, s/p cardiac catheterization on 09/04/2017 revealing 60-70% stenosis of left main, 80% stenosis of mid LAD, 60- 70% left circumflex artery, and 70% disease of obtuse marginal branch S/P coronary artery bypass grafting 3 vessels, left internal mammary artery to left anterior descending artery, reverse saphenous vein graft to the obtuse marginal artery, reverse saphenous vein graft to the posterior descending artery , POD #5 Coronary artery disease with previous myocardial infarction and stent placement History of deep vein thrombosis of left lower extremity, maintained on long- term anticoagulation with Xarelto, currently on hold Diabetes mellitus, type II, hemoglobin A1c 8.5% Essential hypertension Hyperlipidemia Family history of premature coronary artery disease Osteoarthritis History of nicotine dependence, in remission, patient quit smoking cigarettes in 1997 Obesity: BMI 37.6 PLAN: Patient is cleared for discharge from a medical standpoint per Dr. Oakley when cleared by attending. Patient may resume his home dose of Metformin upon discharge. He will follow up with Dr. Oakley in 1 week. Nurse practitioner note has been reviewed by physician. Signing provider agrees with the documented findings, assessment, and plan of care.
--- NOTE | 2017-09-11 10:15 | P.PN ---
Subjective Progress Note Date: 09/11/17 Principal diagnosis: Coronary artery disease status post coronary artery bypass grafting. This is a very pleasant 76-year-old gentleman who follows with Dr. Jarett Oakley as his primary care physician. He has a history of diabetes mellitus, hyperlipidemia, hypertension, colitis, BPH, osteoarthritis with multiple surgeries including bilateral knee replacements. He also states his right hip is needing to be replaced. He was here in September 2016 with a left leg DVT and he remains on Xarelto. He has a remote history of chronic tobacco dependence for approximately 30 years. He did however quit in 1997. Denies having any pulmonary symptoms. He's never been on inhalers or oxygen the outpatient setting. 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 He does have a history of coronary artery disease with previous myocardial infarction and stent placement in 2001. Since that time he had been doing quite well from the cardiac standpoint. Recently he had noticed some chest discomfort while shoveling snow and was seen by Dr. Oakley and subsequently with cardiology and was brought in for an outpatient cardiac catheterization today. Xarelto was stopped on 09/01/2017. He was found to have heavily calcified coronary arteries. He had significant 60-70% distal left main disease, significant 80% mid LAD disease and moderate 60-70% disease in the left circumflex. The plan is for coronary artery bypass grafting within the next 24- 48 hours. He is seen today in consultation on the selective care unit. He is resting flat in bed. He is awake and alert in no acute distress. He denies any shortness of breath, cough or congestion. No chest discomfort currently stating he has not had any since starting isosorbide mononitrate. He remains hemodynamically stable. Maintaining good O2 saturations in the mid to upper 90s on room air. Patient was reevaluated today on 09/05/2017, doing well, relatively asymptomatic , Xarelto remains on hold, and the patient is scheduled to undergo myocardial revascularization tomorrow in a.m. Pulmonary-eng, no cough no wheezing no shortness of breath. Labs were reviewed, relatively normal electrolytes are normal CBC noted. Chest x-ray showed no acute process. Bedside PFT is pending. Patient was reevaluated today on 09/06/2017, patient just came back from surgery , he underwent myocardial revascularization earlier, and he is back in the ICU on mechanical ventilation. His vent settings are FiO2 of 100%, PEEP of 5, SIMV of 14 and tidal volume of 500. ABG is pending, chest x-ray showed postoperative changes, endotracheal tube is almost in the right mainstem bronchus, it is at the level of the zoe. Hence it would be pulled up about to see him from present placement. Labs from earlier today showed relatively normal CBC, normal electrolytes are normal renal profile. Patient is presently sedated, on mechanical ventilation. Reevaluated today on 09/07/2017, patient was extubated last night shortly after his surgery, tolerated the extubation well, presently on nasal cannula, in no distress. Patient is relatively asymptomatic. Chest x-ray showed mostly postoperative changes. CBC is relatively normal, hemoglobin is 10. Platelets are a bit low, at 86,000, basic metabolic profile is normal renal profile is normal. Reevaluated today on 09/08/2017, patient continues to do well, relatively asymptomatic.patient is sitting in a bedside chair, in no distress, and in no pain.hemoglobin is 9.1, normal basic metabolic profile was noted. Chest x-ray was also noted to be relatively unremarkable.except for postoperative changes as expected. On 09/09/2017 patient seen in follow-up on selective care unit. Sitting up in chair, doing well, denies any acute distress, does have some incisional pain, which is fairly well-controlled with current pain medications. Denies any shortness of breath, compliant with his incentive spirometer. Afebrile hemodynamically stable, and 2 L per nasal cannula with O2 sat between 94-96%. Lung sounds are clear to auscultation, no rhonchi no wheezes noted. His chest x -ray shows small bilateral pleural effusions and atelectasis bilaterally. No acute events overnight. His IV fluids have been hep-locked. Progress note dated 09/10/2017 This is a 76-year-old male who is postop day #4 status post bypass grafting. The patient is doing very very well. Had a known history of CAD. The patient also has a history of previous myocardial infarction with stent placement back in 2001, DVT of the left lower extremity, previous history of chronic tobacco dependence, diabetes mellitus, hypertension, hyperlipidemia, BPH, colitis, and DJD. The patient is doing much better. Feeling better. The patient is on 2 L nasal cannula. He's not receiving any IV fluids. The patient is seen again today 09/11/2017 in follow-up on the selective care unit. This is postoperative day #5. He is awake and alert in no acute distress. His pain is well controlled. He's working well with the incentive spirometer. He's been up ambulating with assistance. He is maintaining good O2 saturations in the 90s on room air. He's been hemodynamically stable. Afebrile. Maintaining normal sinus rhythm. White count 5.1, hemoglobin 8.6, creatinine 1.02. He remains on Lasix 40 mg IV push every 12 hours. He remains in a negative balance. Today's chest x-ray shows improved left pleural effusion. Objective - Vital Signs Vital signs: Vital Signs Temp 98.5 F 09/11/17 08:19 Pulse 96 09/11/17 08:19 Resp 17 09/11/17 08:19 BP 116/74 09/11/17 08:19 Pulse Ox 96 09/11/17 04:00 Intake & Output 09/10/17 09/11/17 09/11/17 18:59 06:59 18:59 Intake Total 720 120 490 Output Total 1100 1125 760 Balance -380 -1005 -270 Weight 102.4 kg Intake: Oral 720 120 490 Output: Urine 1100 1125 760 Other: Voiding Method Urinal Urinal Urinal # Voids 1 1 # Bowel Movements 0 ABP, PAP, CO, CI - Last Documented Arterial Blood Pressure 74/55 Pulmonary Artery Pressure 40/14 Cardiac Output 7.9 Cardiac Index 3.8 - Exam GENERAL EXAM: Revealed a 76-year-old white male, on nasal cannula, in no distress. HEAD: Normocephalic. EYES: Normal reaction of pupils, equal size. NOSE: Clear with pink turbinates. THROAT: No erythema or exudates. NECK: No masses, no JVD. CHEST: No chest wall deformity. Midsternal incision is clean dry and intact, sternum stable. LUNGS: Equal air entry with crackles in the left lung base. CVS: S1 and S2 normal with no audible murmur, regular rhythm. ABDOMEN: No hepatosplenomegaly, normal bowel sounds, no guarding or rigidity. SPINE: No scoliosis or deformity SKIN: No rashes CENTRAL NERVOUS SYSTEM: No focal deficits. EXTREMITIES: There is no peripheral edema. No clubbing, no cyanosis. Peripheral pulses are intact. - Labs CBC & Chem 7: 09/11/17 05:30 09/11/17 05:30 Labs: Abnormal Lab Results - Last 24 Hours (Table) 09/10/17 09/10/17 09/10/17 Range/Units 11:52 16:36 21:02 RBC (4.30-5.90) m/uL Hgb (13.0-17.5) gm/dL Hct (39.0-53.0) % MCV (80.0-100.0) fL Carbon Dioxide (22-30) mmol/L Glucose (74-99) mg/dL POC Glucose (mg/dL) 186 H 179 H 127 H (75-99) mg/dL AST (17-59) U/L ALT (21-72) U/L Total Protein (6.3-8.2) g/dL Albumin (3.5-5.0) g/dL 09/11/17 09/11/17 09/11/17 Range/Units 02:07 05:30 05:30 RBC 2.70 L (4.30-5.90) m/uL Hgb 8.6 L (13.0-17.5) gm/dL Hct 27.1 L (39.0-53.0) % MCV 100.4 H (80.0-100.0) fL Carbon Dioxide 32 H (22-30) mmol/L Glucose 107 H (74-99) mg/dL POC Glucose (mg/dL) 125 H (75-99) mg/dL AST 66 H (17-59) U/L ALT 85 H (21-72) U/L Total Protein 5.2 L (6.3-8.2) g/dL Albumin 3.2 L (3.5-5.0) g/dL 09/11/17 Range/Units 05:51 RBC (4.30-5.90) m/uL Hgb (13.0-17.5) gm/dL Hct (39.0-53.0) % MCV (80.0-100.0) fL Carbon Dioxide (22-30) mmol/L Glucose (74-99) mg/dL POC Glucose (mg/dL) 102 H (75-99) mg/dL AST (17-59) U/L ALT (21-72) U/L Total Protein (6.3-8.2) g/dL Albumin (3.5-5.0) g/dL Assessment and Plan Assessment: Impression: #1 Exertional chest pain in a patient found to have significant coronary artery disease. Cardiac catheterization today revealed heavily calcified coronary arteries. He had significant 60-70% distal left main disease, significant 80% mid LAD disease and moderate 60-70% disease in the left circumflex. Status post coronary artery bypass grafting 3 utilizing a FELIZ to the LAD, saphenous vein grafts to the obtuse marginal and posterior descending arteries. Postoperative day #5. #2 History of coronary artery disease with previous myocardial infarction and stent placement in 2001. 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 Held since 09/01/2017. No need to resume as his DVT was in September 2016. #4 Remote history of approximately 30 years at 1 pack per day chronic tobacco dependence, however quit in 1997. #5 Diabetes mellitus, type II. #6 Hypertension. #7 Hyperlipidemia. #8 Benign prostatic hypertrophy. #9 History of colitis. #10 Osteoarthritis with multiple orthopedic surgeries including bilateral knee replacements and cervical spine surgery. Eventually needing a right hip replacement as well. Plan: The patient was seen and evaluated by Dr. Mena. His chest x-ray was reviewed and does show improvement in the left pleural effusion. Continue diuretics. He is quite stable from the pulmonary standpoint. The plan is for discharge home today. He should follow-up in our office in 1-2 weeks' time. We'll repeat a chest x-ray then. He is encouraged to call sooner with any pulmonary symptoms. I, the cosigning physician, have performed a history and physical examination on the patient. Lung sounds have crackles in the left posterior base.. Maintaining good O2 saturations in the 90s on room air. I have discussed the assessment and plan of care with my nurse practitioner, Alexandra Yun. I attest to the above consultation as dictated by her.
[2017-09-11 11:51] VITALS: BP 121/67; PULSE 76; TEMP 98.6
[2017-09-11 12:04] LABS: Glucose,Whole Blood 89 mg/dL (75-99)
[2017-09-11 12:19] LABS: ABG HCO3 25 mmol/L (21-25); ABG Oxygen Saturation 99.7 % (94-97); ABG PCO2 37 mmHg (35-45); ABG PH 7.44 (7.35-7.45); ABG PO2 191 mmHg (83-108); ABG TCO2 26 mmol/L (19-24)
[2017-09-11 12:20] LABS: ABG Potassium Whole Blood 4.4 mmol/L (3.4-4.5); ABG Sodium Whole Blood 142 mmol/L (135-146)
[2017-09-11 12:20] LABS: ABG HCO3 25 mmol/L (21-25); ABG PCO2 48 mmHg (35-45); ABG PH 7.33 (7.35-7.45); ABG PO2 121 mmHg (83-108); ABG TCO2 26 mmol/L (19-24)
[2017-09-11 12:21] LABS: ABG Base Excess -1.2 mmol/L; ABG Oxygen Saturation 98.4 % (94-97); ABG Potassium Whole Blood 4.5 mmol/L (3.4-4.5); ABG Sodium Whole Blood 142 mmol/L (135-146)
[2017-09-11 12:21] LABS: ABG PCO2 39 mmHg (35-45); ABG PH 7.38 (7.35-7.45); ABG PO2 347 mmHg (83-108)
[2017-09-11 12:22] LABS: ABG Base Excess -2.3 mmol/L; ABG HCO3 22 mmol/L (21-25); ABG Oxygen Saturation 99.9 % (94-97); ABG Sodium Whole Blood 142 mmol/L (135-146); ABG TCO2 23 mmol/L (19-24)
[2017-09-11 12:23] LABS: ABG Base Excess -1.5 mmol/L; ABG HCO3 23 mmol/L (21-25); ABG Oxygen Saturation 99.8 % (94-97); ABG PCO2 43 mmHg (35-45); ABG PH 7.35 (7.35-7.45); ABG PO2 254 mmHg (83-108); ABG Potassium Whole Blood 4.4 mmol/L (3.4-4.5); ABG Sodium Whole Blood 141 mmol/L (135-146); ABG TCO2 25 mmol/L (19-24)
[2017-09-11 12:24] LABS: ABG Base Excess -1.5 mmol/L; ABG HCO3 23 mmol/L (21-25); ABG Oxygen Saturation 99.9 % (94-97); ABG PCO2 40 mmHg (35-45); ABG PH 7.38 (7.35-7.45); ABG PO2 329 mmHg (83-108); ABG Potassium Whole Blood 4.4 mmol/L (3.4-4.5); ABG Sodium Whole Blood 142 mmol/L (135-146); ABG TCO2 24 mmol/L (19-24)
[2017-09-11 12:25] LABS: ABG Base Excess -1.9 mmol/L; ABG HCO3 23 mmol/L (21-25); ABG Oxygen Saturation 99.8 % (94-97); ABG PCO2 41 mmHg (35-45); ABG PH 7.37 (7.35-7.45); ABG PO2 244 mmHg (83-108); ABG Sodium Whole Blood 143 mmol/L (135-146); ABG TCO2 24 mmol/L (19-24)
[2017-09-11 12:26] LABS: ABG Base Excess -2.1 mmol/L; ABG HCO3 22 mmol/L (21-25); ABG Oxygen Saturation 99.9 % (94-97); ABG PCO2 39 mmHg (35-45); ABG PH 7.38 (7.35-7.45); ABG PO2 358 mmHg (83-108); ABG Potassium Whole Blood 4.2 mmol/L (3.4-4.5); ABG Sodium Whole Blood 142 mmol/L (135-146); ABG TCO2 24 mmol/L (19-24)
[2017-09-11 12:27] LABS: ABG Base Excess -1.9 mmol/L; ABG HCO3 23 mmol/L (21-25); ABG Oxygen Saturation 99.8 % (94-97); ABG PCO2 41 mmHg (35-45); ABG PH 7.37 (7.35-7.45); ABG PO2 244 mmHg (83-108); ABG Sodium Whole Blood 143 mmol/L (135-146); ABG TCO2 24 mmol/L (19-24)
--- NOTE | 2017-09-11 13:26 | XR ---
EXAMINATION TYPE: XR chest 2V DATE OF EXAM: 09/11/2017 COMPARISON: Prior chest x-ray 09/10/2017 HISTORY: Status post coronary artery bypass graft TECHNIQUE: Frontal and lateral views of the chest are obtained. FINDINGS: Findings are similar to previous. Patient is post median sternotomy. Heart is enlarged. Th ere is basilar density with blunting of the costophrenic angle, obscured left hemidiaphragm. May be s ome improvement in the interstitium. IMPRESSION: There may be some improvement in patient's volume status. Findings are similar to prior exam.
--- NOTE | 2017-09-11 14:36 | P.PN ---
Subjective Progress Note Date: 09/11/17 Principal diagnosis: Status post coronary bypass grafting surgery This is a 76-year-old gentleman who is status post coronary bypass grafting surgery. Chest x-ray performed today did show some improvement in the patient's volume status. Overall the patient is feeling very well today, denies any sternal discomfort, breathing is overall stable, he has been up ambulating without any difficulty. Arrangements are being made for the patient to be discharged home today Objective - Vital Signs Vital signs: Vital Signs Temp 98.6 F 09/11/17 11:49 Pulse 76 09/11/17 11:53 Resp 19 09/11/17 11:49 BP 121/67 09/11/17 11:49 Pulse Ox 92 L 09/11/17 11:49 Intake & Output 09/10/17 09/11/17 09/11/17 18:59 06:59 18:59 Intake Total 720 120 730 Output Total 1100 1125 1360 Balance -380 1005 -630 Weight 102.4 kg Intake: Oral 720 120 730 Output: Urine 1100 1125 1360 Other: Voiding Method Urinal Urinal Urinal # Voids 1 1 # Bowel Movements 0 ABP, PAP, CO, CI - Last Documented Arterial Blood Pressure 74/55 Pulmonary Artery Pressure 40/14 Cardiac Output 7.9 Cardiac Index 3.8 - Exam PHYSICAL EXAMINATION: HEENT: Head is atraumatic, normocephalic. Pupils equal, round. Neck is supple. There is no elevated jugular venous pressure. HEART EXAMINATION: Heart S1, S2 normal. No murmur or gallop heard. CHEST EXAMINATION: Lungs are clear with mild diminished air entry to the bases ABDOMEN: Soft, nontender. Bowel sounds are heard. No organomegaly noted. EXTREMITIES: 2+ peripheral pulses with no evidence of peripheral edema and no calf tenderness noted. NEUROLOGIC patient is awake, alert and oriented -3. . - Labs CBC & Chem 7: 09/11/17 05:30 09/11/17 05:30 Labs: Abnormal Lab Results - Last 24 Hours (Table) 09/06/17 09/06/17 09/06/17 Range/Units 08:48 10:27 11:31 RBC (4.30-5.90) m/uL Hgb (13.0-17.5) gm/dL Hct (39.0-53.0) % MCV (80.0-100.0) fL ABG pH 7.33 L (7.35-7.45) ABG pCO2 48 H (35-45) mmHg ABG pO2 191 H 121 H 347 H (83-108) mmHg ABG Total CO2 26 H 26 H (19-24) mmol/L ABG O2 Saturation 99.7 H 98.4 H 99.9 H (94-97) % ABG Hematocrit 32 L (34.0-46.0) % Carbon Dioxide (22-30) mmol/L Glucose (74-99) mg/dL POC Glucose (mg/dL) (75-99) mg/dL AST (17-59) U/L ALT (21-72) U/L Total Protein (6.3-8.2) g/dL Albumin (3.5-5.0) g/dL 09/06/17 09/06/17 09/06/17 Range/Units 11:59 12:37 13:08 RBC (4.30-5.90) m/uL Hgb (13.0-17.5) gm/dL Hct (39.0-53.0) % MCV (80.0-100.0) fL ABG pH (7.35-7.45) ABG pCO2 (35-45) mmHg ABG pO2 254 H 329 H 358 H (83-108) mmHg ABG Total CO2 25 H (19-24) mmol/L ABG O2 Saturation 99.8 H 99.9 H 99.9 H (94-97) % ABG Hematocrit 28 L 29 L 27 L (34.0-46.0) % Carbon Dioxide (22-30) mmol/L Glucose (74-99) mg/dL POC Glucose (mg/dL) (75-99) mg/dL AST (17-59) U/L ALT (21-72) U/L Total Protein (6.3-8.2) g/dL Albumin (3.5-5.0) g/dL 09/06/17 09/06/17 09/10/17 Range/Units 13:45 13:45 16:36 RBC (4.30-5.90) m/uL Hgb (13.0-17.5) gm/dL Hct (39.0-53.0) % MCV (80.0-100.0) fL ABG pH (7.35-7.45) ABG pCO2 (35-45) mmHg ABG pO2 244 H 244 H (83-108) mmHg ABG Total CO2 (19-24) mmol/L ABG O2 Saturation 99.8 H 99.8 H (94-97) % ABG Hematocrit 29 L 29 L (34.0-46.0) % Carbon Dioxide (22-30) mmol/L Glucose (74-99) mg/dL POC Glucose (mg/dL) 179 H (75-99) mg/dL AST (17-59) U/L ALT (21-72) U/L Total Protein (6.3-8.2) g/dL Albumin (3.5-5.0) g/dL 09/10/17 09/11/17 09/11/17 Range/Units 21:02 02:07 05:30 RBC 2.70 L (4.30-5.90) m/uL Hgb 8.6 L (13.0-17.5) gm/dL Hct 27.1 L (39.0-53.0) % MCV 100.4 H (80.0-100.0) fL ABG pH (7.35-7.45) ABG pCO2 (35-45) mmHg ABG pO2 (83-108) mmHg ABG Total CO2 (19-24) mmol/L ABG O2 Saturation (94-97) % ABG Hematocrit (34.0-46.0) % Carbon Dioxide (22-30) mmol/L Glucose (74-99) mg/dL POC Glucose (mg/dL) 127 H 125 H (75-99) mg/dL AST (17-59) U/L ALT (21-72) U/L Total Protein (6.3-8.2) g/dL Albumin (3.5-5.0) g/dL 09/11/17 09/11/17 Range/Units 05:30 05:51 RBC (4.30-5.90) m/uL Hgb (13.0-17.5) gm/dL Hct (39.0-53.0) % MCV (80.0-100.0) fL ABG pH (7.35-7.45) ABG pCO2 (35-45) mmHg ABG pO2 (83-108) mmHg ABG Total CO2 (19-24) mmol/L ABG O2 Saturation (94-97) % ABG Hematocrit (34.0-46.0) % Carbon Dioxide 32 H (22-30) mmol/L Glucose 107 H (74-99) mg/dL POC Glucose (mg/dL) 102 H (75-99) mg/dL AST 66 H (17-59) U/L ALT 85 H (21-72) U/L Total Protein 5.2 L (6.3-8.2) g/dL Albumin 3.2 L (3.5-5.0) g/dL Assessment and Plan Plan: Assessment and plan #1 status post coronary artery bypass grafting surgery #2 hyperlipidemia #3 diabetes Plan Once the patient is discharged home from the hospital we will make him a follow- up appointment to see Dr. Joe in the office 2 weeks post discharge. DNP note has been reviewed, I agree with a documented findings and plan of care. Patient was seen and examined.
--- NOTE | 2017-09-11 14:50 | P.DS ---
Providers Date of admission: 09/04/17 08:13 Expected date of discharge: 09/11/17 Attending physician: Murali Chaudhary Consults: 09/04/17 08:28 Consult Physician Routine Consulting Provider: Murali Chaudhary Consult Reason/Comments: cabg Do you want consulting provider notified?: Already Contacted 09/04/17 10:31 Consult Physician Routine Consulting Provider: Jarett Oakley Consult Reason/Comments: Primary Physician Do you want consulting provider notified?: Yes 09/04/17 10:46 Consult Physician Routine Consulting Provider: Yoon Liao Consult Reason/Comments: pre op cardiac surgery Do you want consulting provider notified?: Yes Consult to Anesthesia Routine Consulting Provider: Anesthesia,Services Consult Reason/Comments: Cardiac Surgery Pre-Op 09/05/17 16:17 Consult Physician Routine Consulting Provider: [facility] Consult Reason/Comments: chest pain Do you want consulting provider notified?: Already Contacted Primary care physician: Jarett Oakley - Discharge Diagnosis(es) (1) History of DVT of lower extremity Current Visit: Yes Status: Acute (2) Previous myocardial infarction older than 8 weeks Current Visit: Yes Status: Acute (3) History of heart artery stent Current Visit: Yes Status: Acute (4) Tobacco dependence in remission Current Visit: Yes Status: Acute (5) BPH (benign prostatic hyperplasia) Current Visit: Yes Status: Acute (6) Status post aorto-coronary artery bypass graft Current Visit: Yes Status: Acute (7) Arthritis Current Visit: Yes Status: Chronic (8) Coronary artery disease Current Visit: Yes Status: Chronic (9) Diabetes mellitus type 2 in obese Current Visit: Yes Status: Chronic (10) Family history of premature coronary artery disease Current Visit: Yes Status: Chronic (11) Hyperlipidemia Current Visit: Yes Status: Chronic (12) Hypertension Current Visit: Yes Status: Chronic (13) Left main coronary artery disease Current Visit: Yes Status: Chronic (14) Obesity (BMI 30-39.9) Current Visit: Yes Status: Chronic Hospital Course: FINAL DIAGNOSIS: 1. Coronary artery disease with left main disease 2. Previous medical history of heart cardinal infarction with stent placement in 2001 (while living in [place]) 3. Hypertension 4. Hyperlipidemia 5. Diabetes mellitus type 2 with an admission hemoglobin A1c of 8.5% 6. Deep vein thrombosis of the left lower extremity in September 2016 7. Previous tobacco dependence, in remission 8. Family history of premature coronary artery disease with his father passing away from a myocardial infarction at age 4949 years old 9. Enlarged prostate 10. Osteoarthritis 11. Obesity PRINCIPAL PROCEDURE: 1. Left heart catheterization with left ventriculogram. 2. Urgent coronary artery bypass grafting 3 vessels, placement of his left internal mammary artery to his left anterior setting coronary artery, a reverse greater saphenous vein graft placed to his obtuse marginal coronary artery, a reverse greater saphenous vein graft placed to his posterior descending coronary artery. 3. Endoscopic vein harvest, right greater saphenous vein. 4. Epi-aortic ultrasound. 5. Intraoperative transesophageal echocardiogram. HISTORY OF PRESENT ILLNESS: This is a 76-year-old gentleman who is followed by Dr. Jarett Oakley on an outpatient basis. He has a past medical history of coronary artery disease, myocardial infarction with stent placement in 2001, hypertension, hyperlipidemia, diabetes mellitus type 2, history of deep vein thrombosis of his left lower extremity, taking Xarelto at home, enlarged prostate, osteoarthritis, and obesity. Recently, the patient has had complaints of substernal chest pain and shortness of breath with activity, mainly shoveling snow. Subsequently due to the above-mentioned symptoms he was referred to Dr. Joe from [facility] for further workup and treatment. The patient was scheduled for an elective cardiac catheterization. HOSPITAL COURSE: On 09/04/2017 after obtaining consent the patient underwent a heart catheterization performed by Dr. Joe. His heart catheterization results demonstrated a 60-70% stenosis to his left main coronary artery, and 80 % stenosis to his mid left anterior descending coronary artery, a 60-70% stenosis in the left circumflex coronary artery and a 70% stenosis in the obtuse marginal branch. Also during heart catheterization a left ventriculogram was performed which demonstrated a normal systolic function with an ejection fraction of 55%. Due to the patient's above-mentioned symptoms and cardiac catheterization results Dr. Chaudhary from cardiothoracic surgery was consulted to evaluate the patient for possible myocardial revascularization surgery. Dr. Chaudhary discussed the risks, benefits and alternatives to my cardiovascular revascularization and the patient decided to proceed with the surgery. Consent was obtained and the patient was taken to the operating room where Dr. Chaudhary performed an urgent coronary artery bypass grafting 3 vessels, placement of his left internal mammary artery to his left anterior setting coronary artery, a reverse greater saphenous vein graft placed to his obtuse marginal coronary artery, a reverse greater saphenous vein graft placed to his posterior descending coronary artery, endoscopic vein harvest of his right greater saphenous vein, intraoperative epi-aortic ultrasound and transesophageal echocardiogram. The patient was subsequently transferred to the intensive care unit where he was recovered, monitored hemodynamically, and where he progressed cardiac rehabilitation phase 1. The patient was extubated, all lines, tubes and drips were discontinued and he was transferred to [address] [place] [address] for further monitoring and rehabilitation. He was weaned off his oxygen and he continued to work with physical therapy and cardiac rehab and was ready for to be discharged home on postoperative day #5 with [facility] to follow. The patient and his have received written and verbal instructions regarding his medications, lab work, activity restrictions, signs and symptoms requiring physician no medication and follow-up appointments. COMPLICATIONS: There were no postoperative complications. CONSULTATIONS: 1. Dr. Joe for cardiology management 2. Dr. Jarett Oakley for medical management 3. Dr. Liao for pulmonary and ventilator management DISCHARGE INSTRUCTIONS: 1. No driving for 4 weeks, or until physician gives their ok. 2. The patient should sleep in their own bed, no medical bed needed. 3. Stairs are not an issue. If the bedroom is upstairs, it is advised that the patient go up at night and down in the morning for the first week. Go slowly, using handrail and take 1 step at a time. 4. GAUTAM hose are to be worn for 30 days or until physician discontinues. 5. Heart hugger is to be worn 100% of the time until physician discontinues.( except when showering) 6. No lifting, pushing, or pulling more than 10 pounds for 12 weeks. The physician will advise of any restriction changes. 7. The patient is expected to continue the prescribed walking program. 8. Continue pain control per as needed orders. 9. Continue with incentive spirometry and splinting/heart hugger until otherwise directed by the physician. 10. Must shower daily using liquid antibacterial soap and a separate white washcloth for each individual incision. 11. Routine sternal incision care, no ointments, lotions or powders on the incisions. 12. Please notify surgeon/nurse practitioner for temperature greater than 101F or purulent drainage from incisions 13. Prescriptions for first 30 days given per cardiac surgery service. After 30 days, all prescription refills obtained through cardiology/primary care physician. 14. A red arm and has been placed on this patient it should be worn for 30 days post surgery and will be removed by the cardiothoracic surgeons. If an ER visit is necessary, please make sure the number on the red arm band is called. HOME HEALTH SERVICES TO PROVIDE: RN SKILLED HOME CARE SERVICES FOR POST-OP SURGICAL PATIENTS WITH THE FOLLOWING: Coronary Artery Bypass Surgery (CABG), Mitral Valve Replacement/ Repair ( MVR), Aortic Valve Replacement/Repair (AVR) RN TO CONTINUE EDUCATION FROM ``ROAD TO A HEALTH HEART PATIENT EDUCATION MANUAL" (GIVEN TO PATIENT IN THE HOSPITAL) MEDICATION RECONCILIATION WITH EDUCATION NEEDED ON FIRST HOME VISIT EMPHASIZE IMPORTANCE OF WEARING BREAST SUPPORT/HEART HUGGER ENCOURAGE USE OF INCENTIVE SPIROMETER 10 X EVERY HOUR WHILE AWAKE ENCOURAGE UTILIZATION OF LOWER EXTREMITY COMPRESSION STOCKINGS/GAUTAM HOSE and ELEVATE LEGS ABOVE LEVEL OF HEART WHILE AT REST. ENCOURAGE AMBULATION 3-5x/day INCREASING TOLERATES, WHILE AVOID EXTREMES IN TEMPERATURE FREQUENCY: RN TO OPEN THE PATIENT WITHIN 24 HOURS OF DISCHARGE FROM THE HOSPITAL WITH TELEHEALTH INSTALLED AT [facility], RN TO VISIT 2-3 X A WEEK FOR 4 WEEKS ESTABLISHED BY PATIENT NEEDS. LABORATORY: CBC, CMP TO BE DRAWN ON THE THIRD DAY HOME, 09/14/2017 (RAN STAT) FAX RESULTS TO [phone]. TELEHEALTH PARAMETERS: WEIGHT: NOTIFY MD OF WEIGHT GAIN OF 2 LBS IN 24 HOURS OR 5 LBS IN ONE WEEK HR: NOTIFY MD OF HR <55 BPM OR HR>100 BPM BP: NOTIFY MD IF BP <90/55 OR BP>140/100 O2 SAT: NOTIFY MD IF PO2<93% ON ROOM AIR SEND TELEHEALTH REPORT TO ELECTRICIAN SOUND AND CARDIOVASCULAR SURGEON THE FIRST WEEK OF CARE AND THEN BI-WEEKLY. PLEASE ADDITIONALLY COMMUNICATE ANY ABNORMALS AND NEW FINDINGS TO THE SURGEONS OFFICE. Patient has been instructed to check his blood sugars before meals and at bedtime and to keep a record of his blood sugars to bring with him to a follow- up appointment with Dr. Jarett Oakley. If his blood sugar is less than 70 or greater than [address] Oakley office for further orders. Plan - Discharge Summary Discharge Rx Participant: Yes New Discharge Prescriptions: New HYDROcodone/APAP 5-325MG [Santa Claus 5-325] 1 each PO Q4HR PRN #30 tab PRN Reason: Moderate Pain Aspirin 81 mg PO DAILY #30 chew Atorvastatin [Lipitor] 40 mg PO DAILY #30 tab Furosemide [Lasix] 40 mg PO DAILY 5 Days #5 tab Metoprolol Tartrate [Lopressor] 12.5 mg PO BID #60 tab Pantoprazole [Protonix] 40 mg PO NAVYA-BRKFST #30 tablet. Potassium Chloride ER [K-Dur 10] 10 meq PO DAILY 5 Days #5 tab.er.prt Sennosides-Docusate Sodium [Senokot-S] 2 each PO HS #30 tab metFORMIN HCL [Glucophage] 500 mg PO BID-W/MEALS #60 tab Continue Doxazosin [Cardura] 4 mg PO BID Rivaroxaban [Xarelto] 20 mg PO DAILY ALPRAZolam [Xanax] 1 mg PO HS Discontinued sulfaSALAzine [Azulfidine] 500 mg PO BID Simvastatin [Zocor] 40 mg PO DAILY metFORMIN HCL [Glucophage] 500 mg PO BID Celecoxib [CeleBREX] 200 mg PO DAILY Isosorbide Mononitrate [Isosorbide Mononitrate ER] 30 mg PO DAILY Metoprolol Succinate [Toprol XL] 50 mg PO DAILY Discharge Medication List Doxazosin [Cardura] 4 mg PO BID 08/30/17 [History] Rivaroxaban [Xarelto] 20 mg PO DAILY 08/30/17 [History] ALPRAZolam [Xanax] 1 mg PO HS 09/04/17 [History] Aspirin 81 mg PO DAILY #30 chew 09/11/17 [Rx] Atorvastatin [Lipitor] 40 mg PO DAILY #30 tab 09/11/17 [Rx] Furosemide [Lasix] 40 mg PO DAILY 5 Days #5 tab 09/11/17 [Rx] HYDROcodone/APAP 5-325MG [Santa Claus 5-325] 1 each PO Q4HR PRN #30 tab 09/11/17 [Rx] Metoprolol Tartrate [Lopressor] 12.5 mg PO BID #60 tab 09/11/17 [Rx] Pantoprazole [Protonix] 40 mg PO NAVYA-DESIRAEFST #30 tablet. 09/11/17 [Rx] Potassium Chloride ER [K-Dur 10] 10 meq PO DAILY 5 Days #5 tab.er.prt 09/11/17 [ Rx] Sennosides-Docusate Sodium [Senokot-S] 2 each PO HS #30 tab 09/11/17 [Rx] metFORMIN HCL [Glucophage] 500 mg PO BID-W/MEALS #60 tab 09/11/17 [Rx] Follow up Appointment(s)/Referral(s): Yoon Liao MD [STAFF PHYSICIAN] - 10/04/17 1:30 pm Rita Lee NPC [Nurse Practitioner] - 09/13/17 12:30 pm [facility], [NON-STAFF] - Murali Chaudhary MD [STAFF PHYSICIAN] - 10/04/17 10:15 am Baljinder Joe MD [STAFF PHYSICIAN] - 2 Weeks (Office will call with appointment time) Jarett Oakley DO [Primary Care Provider] - 1 Week Ambulatory/Diagnostic Orders: Complete Blood Count w/diff [LAB.AMB] Time Frame: 09/14/17, Facility: [facility], Location: [facility] Comprehensive Metabolic Panel [LAB.AMB] Time Frame: 09/14/17, Facility: [facility], Location: [facility] Patient Instructions/Handouts: *Surgery [facility] - After Heart Catheterization - Hospital Plan Administrator Instructions, Left Heart Catheterization (DC) Activity/Diet/Wound Care/Special Instructions: [facility] (will be delivered to your home) - [phone] manual pull DISCHARGE INSTRUCTIONS: 1. No driving for 4 weeks, or until physician gives their ok. 2. The patient should sleep in their own bed, no medical bed needed. 3. Stairs are not an issue. If the bedroom is upstairs, it is advised that the patient go up at night and down in the morning for the first week. Go slowly, using handrail and take 1 step at a time. 4. GAUTAM hose are to be worn for 30 days or until physician discontinues. 5. Heart hugger is to be worn 100% of the time until physician discontinues.( except when showering) 6. No lifting, pushing, or pulling more than 10 pounds for 12 weeks. The physician will advise of any restriction changes. 7. The patient is expected to continue the prescribed walking program. 8. Continue pain control per as needed orders. 9. Continue with incentive spirometry and splinting/heart hugger until otherwise directed by the physician. 10. Must shower daily using liquid antibacterial soap and a separate white washcloth for each individual incision. 11. Routine sternal incision care, no ointments, lotions or powders on the incisions. 12. Please notify surgeon/nurse practitioner for temperature greater than 101F or purulent drainage from incisions 13. Prescriptions for first 30 days given per cardiac surgery service. After 30 days, all prescription refills obtained through cardiology/primary care physician. 14. A red arm and has been placed on this patient it should be worn for 30 days post surgery and will be removed by the cardiothoracic surgeons. If an ER visit is necessary, please make sure the number on the red arm band is called. 15. HOME HEALTH SERVICES TO PROVIDE: RN SKILLED HOME CARE SERVICES FOR POST-OP SURGICAL PATIENTS WITH THE FOLLOWING: Coronary Artery Bypass Surgery (CABG), Mitral Valve Replacement/ Repair ( MVR), Aortic Valve Replacement/Repair (AVR) RN TO CONTINUE EDUCATION FROM ``ROAD TO A HEALTH HEART PATIENT EDUCATION MANUAL" (GIVEN TO PATIENT IN THE HOSPITAL) MEDICATION RECONCILIATION WITH EDUCATION NEEDED ON FIRST HOME VISIT EMPHASIZE IMPORTANCE OF WEARING BREAST SUPPORT/HEART HUGGER ENCOURAGE USE OF INCENTIVE SPIROMETER 10 X EVERY HOUR WHILE AWAKE ENCOURAGE UTILIZATION OF LOWER EXTREMITY COMPRESSION STOCKINGS/GAUTAM HOSE and ELEVATE LEGS ABOVE LEVEL OF HEART WHILE AT REST. ENCOURAGE AMBULATION 3-5x/day INCREASING TOLERATES, WHILE AVOID EXTREMES IN TEMPERATURE FREQUENCY: RN TO OPEN THE PATIENT WITHIN 24 HOURS OF DISCHARGE FROM THE HOSPITAL WITH TELEHEALTH INSTALLED AT [facility], RN TO VISIT 2-3 X A WEEK FOR 4 WEEKS ESTABLISHED BY PATIENT NEEDS. LABORATORY: CBC, CMP TO BE DRAWN ON THE THIRD DAY HOME, 09/14/2017 (RAN STAT) FAX RESULTS TO [phone]. TELEHEALTH PARAMETERS: WEIGHT: NOTIFY MD OF WEIGHT GAIN OF 2 LBS IN 24 HOURS OR 5 LBS IN ONE WEEK HR: NOTIFY MD OF HR <55 BPM OR HR>100 BPM BP: NOTIFY MD IF BP <90/55 OR BP>140/100 O2 SAT: NOTIFY MD IF PO2<93% ON ROOM AIR SEND TELEHEALTH REPORT TO ELECTRICIAN SOUND AND CARDIOVASCULAR SURGEON THE FIRST WEEK OF CARE AND THEN BI-WEEKLY. PLEASE ADDITIONALLY COMMUNICATE ANY ABNORMALS AND NEW FINDINGS TO THE SURGEONS OFFICE. Patient has been instructed to check his blood sugars before meals and at bedtime and to keep a record of his blood sugars to bring with him to a follow- up appointment with Dr. Jarett Oalkey. If his blood sugar is less than 70 or greater than [address] Oakley office for further orders. Discharge Disposition: HOME WITH HOME HEALTH SERVICES
[2017-09-11 14:51] VITALS: RESP 16
[2017-09-12] MEDS ORDERED: FUROSEMIDE 40 MG TAB PO SCH (09:00)
[2017-09-12] MEDS ORDERED: POTASSIUM CHLORIDE ER 10 MEQ TAB.ER.PRT PO SCH (09:00)
--- NOTE | 2017-09-25 14:19 | P.VSCSTY ---
Greater Saphenous Vein Mapping This is bilateral lower extremity greater saphenous vein mapping. Date of service 09/04/2017 Vein quality and ultrasound appearance numerous branches bilaterally. Vein size groin right 7.3 x 4.9 groin left 7.5 x 8.2 High thigh right 4.2 x 4.0 high thigh left 7.2 x 5.5 Mid thigh right 3.2 x 2.9 mid thigh left 7.0 x 5.0 Above-knee right 2.1 x 1.8 above-knee left 5.5 x 4.0 Below knee right 3.4 x 2.9 below-knee left 5.7 x 4.2 Mid calf right 2.7 x 2.4 mid calf left 4.1 x 2.9 Ankle right 3.6 x 2.6 left 3.0 x 2.0 Impression some areas on the right are bit small.. usable bilateral greater saphenous vein
== END 2017-09-11 16:20 | disposition home health service (06) | DRG 234 ==
LOC: CATHCVL 06:33 → 6SEL 08:13 → 6ICU 09-05 07:38 → 6SEL 09-10 10:38
PROVIDERS: ADMIT Surgery; ATTEND Surgery
PROC: 4A023N7 Measurement of Cardiac Sampling and Pressure, Left Heart, Percutaneous Approach (ICD-10-PCS; 2017-09-04)
PROC: B2111ZZ Fluoroscopy of Multiple Coronary Arteries using Low Osmolar Contrast (ICD-10-PCS; 2017-09-04)
PROC: B2151ZZ Fluoroscopy of Left Heart using Low Osmolar Contrast (ICD-10-PCS; 2017-09-04)
PROC: 02100Z9 Bypass Coronary Artery, One Artery from Left Internal Mammary, Open Approach (ICD-10-PCS; 2017-09-06)
PROC: 06BP4ZZ Excision of Right Saphenous Vein, Percutaneous Endoscopic Approach (ICD-10-PCS; 2017-09-06)
PROC: 5A1221Z Performance of Cardiac Output, Continuous (ICD-10-PCS; 2017-09-06)
PROC: 30243K1 Transfusion of Nonautologous Frozen Plasma into Central Vein, Percutaneous Approach (ICD-10-PCS; 2017-09-06)
PROC: 0211093 Bypass Coronary Artery, Two Arteries from Coronary Artery with Autologous Venous Tissue, Open Approach (ICD-10-PCS; principal; 2017-09-06 08:00)
DX: I25.10 Atherosclerotic heart disease of native coronary artery without angina pectoris (principal); J90 Pleural effusion, not elsewhere classified; I95.9 Hypotension, unspecified; I82.502 Chronic embolism and thrombosis of unspecified deep veins of left lower extremity; E11.9 Type 2 diabetes mellitus without complications; I34.0 Nonrheumatic mitral (valve) insufficiency; J98.11 Atelectasis; E66.9 Obesity, unspecified; E78.5 Hyperlipidemia, unspecified; F17.201 Nicotine dependence, unspecified, in remission; I10 Essential (primary) hypertension; I25.2 Old myocardial infarction; N40.0 Benign prostatic hyperplasia without lower urinary tract symptoms; M19.90 Unspecified osteoarthritis, unspecified site; Z68.37 Body mass index [BMI] 37.0-37.9, adult; Z79.01 Long term (current) use of anticoagulants; Z79.84 Long term (current) use of oral hypoglycemic drugs; Z79.899 Other long term (current) drug therapy; Z79.82 Long term (current) use of aspirin; Z95.5 Presence of coronary angioplasty implant and graft; Z96.653 Presence of artificial knee joint, bilateral; Z82.49 Family history of ischemic heart disease and other diseases of the circulatory system
CPT/HCPCS: 36430; 71045; 71046; 80053; 80061; 80074; 81003; 82330; 82805; 83036; 83735; 84100; 84132; 84443; 85025; 85027; 85520; 85610; 85730; 86850; 86891; 86900; 86901; 86920; 87070; 87086; 93458; 93880; 93970; 94002; 94150; 94640